=== PATIENT | female | born 1935 | race Caucasian/White ===

== ENCOUNTER → 2017-07-26 | Outpatient (CLI) | payer OTHER ==
[~2017-07-26] MED LIST: ASPI81CH37 CHEW; ATOR20TA15 PO; CALCTAB32 PO; CILO100T PO; CYCL1TAB29 PO; FURO20TA PO; GABA100C4 PO; HYDR-3366 PO; HYDR-3533 PO; METO25TA3 PO; PANT40TA3 PO; SPIR25TA PO; TRAM50TA PO; TYLE325T PO; WOMETAB5
== END ==
LOC: CPRE 12:23
PROVIDERS: ATTEND Neurological Surgery
DX: Z01.818 Encounter for other preprocedural examination (principal); M43.16 Spondylolisthesis, lumbar region; M48.06 Spinal stenosis, lumbar region; M51.36 Other intervertebral disc degeneration, lumbar region; M54.5 Low back pain

== ENCOUNTER 2017-08-01 08:30 | Inpatient (IN) | payer OTHER, MEDICARE ==
[~2017-08-01] VITALS: Ht 157.5 cm; Wt 54.6 kg
[~2017-08-01 08:30] MED LIST changes: -CYCL1TAB29 PO; -TRAM50TA PO
--- NOTE | 2017-08-09 15:43 | MH ---
cc: ANDREI SANCHEZ M.D., ROHIT K. M.D. DATE OF ADMISSION: 08/10/2017 ADMITTING DIAGNOSIS: Lumbar degenerative disk disease. HISTORY OF PRESENT ILLNESS This is a 82-year-old female who presented to us for evaluation of low back pain. She states one and a half years ago she fell and fractured her pelvis in two places. She has had low back pain and left leg pain since then. She states that after her fall she laid on the ground. She 1-1/2 days before her grandson found her. She had low back pain. A left leg pain specifically in the left superior buttocks and the left anterior carmichael and occasionally will radiate into the dorsal aspect of the foot. She states the left leg is very sensitive to touch and has burning quality to it. She states her back pain does not improve lying down and is not positional and hurts all the time. She denies any paresthesias or lower extremities. She has left leg weakness and has fallen three to four times this year. She has been using a cane for the last 6 months. She has urinary incontinence but states that she uses Depends and that she cannot get to the bathroom in time, denies any ervin incontinence. She sleeps wearing a depends pads because she is not able to get to the bathroom in time. She states her back pain is equal to her leg pain. She has physical therapy which did not help and all. She has been to pain management have three injections which also did not help her. She has seen orthopedics in the past who recommended surgery since she has failed conservative treatment measures and the patients close friend who is here with her today recommended that she see neurosurgery for further evaluation. PAST MEDICAL HISTORY: 1. Past medical history significant for broken pelvis. 2. Hysterectomy 3. Breast surgery 4. Hypertension 5. Hyperlipidemia 6. Gastroesophageal reflux disease 7. Urinary tract infections. CURRENT MEDICATIONS 1. Furosemide 20 mg daily 2. Cilostazol 100 mg b.i.d., 3. spironolactone 25 mg daily, 4. atorvastatin 20 mg daily, 5. Gabapentin 100 mg p.o. q hs. 6. Pantoprazole 40 mg daily 7. metoprolol tartrate 25 mg b.i.d. 8. low-dose aspirin 81 mg daily, 9. multivitamin daily, 10. calcium citrate with vitamin D daily, 11. [id number] Ardds two daily. ALLERGIES TO MEDICATIONS She is she is allergic to PENICILLIN SULFA FAMILY HISTORY Father is of a stroke. Mother is of heart disease. She has a sister who is alive 74 in good health. SOCIAL HISTORY She is . She is retired. She has four children. She lives with her grandson. She does not smoke. She quit 1969. She drinks two drinks of alcohol per day. REVIEW OF SYSTEMS CONSTITUTIONAL: She denies any fever. Positive for chills and EARS, NOSE, AND THROAT: ears, nose and throat no pharyngitis, exudates or bloody drainage from her nose. CARDIOVASCULAR SYSTEM: Under cardiovascular she denies any chest pain or palpitations. RESPIRATORY: No cough or shortness of breath. GENITOURINARY: No dysuria or frequency. MUSCULOSKELETAL: Positive for low back pain. SKIN: No rashes or pruritus. NEUROLOGIC: No difficulty with speech. Positive for difficulty with memory. GASTROINTESTINAL: No abdominal pain, diarrhea. Positive for constipation. PSYCHIATRIC: No anxiety or depression symptoms. ENDOCRINE: No polyuria. HEMATOLOGIC: Positive for bruising but no bleeding tendencies. PHYSICAL EXAMINATION HEAD, EYES, EARS, NOSE, AND THROAT: Normocephalic, atraumatic. NECK: Supple. No carotid bruits heard. LUNGS: On auscultation of lungs clear to auscultation bilaterally. HEART: Regular rate and rhythm, normal S1, S2. ABDOMEN: Soft, nontender. Positive bowel sounds. SKIN: Reveals no cyanosis or erythema. MUSCULOSKELETAL: She has left iliopsoas, 3/5 strength, right and 4- /5, bilateral EHL 4/5, otherwise 5/5 strength in the lower extremities. NEUROLOGIC: She is awake, alert, oriented. Cranial nerves II-XII appear grossly intact. Speech is fluent. Comprehension is good. She walks with a kyphotic posture as obvious scoliotic deformity. She has a cane for support. DATA Reviewed MRI of the lumbar spine from February 26, 2017 reveals moderate to severe L4, L6 and L5 spinal stenosis along with a grade 1 / II spondylolisthesis of facet arthropathy and disk protrusion with associated foraminal stenosis. She also has severe L2-L3 disk degeneration with disk height collapse and mild to moderate spinal stenosis at L2-L3, L3-L4. There is an obvious sclerotic she has a scoliotic deformity noted. IMPRESSION 82-year-old female with a chronic history of intractable low back pain with associated left L4-L5 radiculopathy. She has failed conservative treatment measures including physical therapy and interventional pain management. She states her legs giving out on her frequently and just recently she suffered a large bruise on the forearm after she fell. She has significant L4-L5 spinal stenosis along with a grade 1 spondylolisthesis with severe degenerative disk disease and facet arthropathy. She also has severe L2-L3 degenerative disk disease with disk height collapse and lumbar scoliosis. PLAN We have discussed treatment options with the patient which include continued conservative measures including physical therapy and pain management versus surgical intervention and the pros and cons of each were discussed with the patient. The patient's friend relate that she cannot live with a current level of discomfort and her limitations and she is tearful in the examining room and she is requesting we proceed with surgical intervention. She has seen orthopedic surgeon in the past who recommended an L4-L5 laminectomy with fusion and pedicle screw fixation and she presented to us for second opinion. We agree with the surgical intervention involving an L4-L5 transforaminal decompression with interbody fusion pedicle screw fixation through a minimally open minimally invasive procedure. She understands given the degenerative changes of other levels as well as the scoliosis that she would not be pain free with the goal is to lessen her pain increase her activity to prevent further deconditioning. We have discussed the procedure as well as the risk benefit, alternative recovery time in great deal with the patient. We have discussed the risks involved with surgery include but not limited to bleeding, infection, muscle weakness voice hoarseness, difficulty swallowing, heart attack, stroke blood clots, non fusion, scar tissue formation among others. The patient was sent to cardiology for further evaluation of her preop EKG and they placed her at moderate risk for cardiac complications and no further clinical management was required. The patient understands the risks of surgery involved and she is requesting that we proceed and she was therefore scheduled accordingly. We will also seek medical clearance from [place] and she was therefore scheduled accordingly. Josiah Fernandes MD DICTATED BY: KENNY Bustos/win /3:04 PM /3:24 PM
[2017-08-10] MEDS ORDERED: VANCOMYCIN HCL 1000 MG VIAL ONE ×3 (06:41→11:40)
[2017-08-10] MEDS ORDERED: GELFOAM SIZE 100 ONE (06:42)
[2017-08-10] MEDS ORDERED: THROMBIN (TOPICAL) 5,000 UNIT VIAL ONE (06:42)
[2017-08-10] MEDS ORDERED: BUPIVACAINE/EPINEPHRINE 0.5% 50 ML VIAL ONE (06:42)
[2017-08-10] MEDS ORDERED: VANCOMYCIN HCL 1000 MG ON-CALL/NS 250 ML IV SCH ×2 (06:45)
[2017-08-10] MEDS ORDERED: METOPROLOL TARTRATE 25 MG TAB PO PRN (06:45)
[2017-08-10] MEDS ORDERED: POVIDONE IODINE 5% (ANTISEPSIS KIT) 4 APPLICATIONS EACH NARE PRN (06:45)
[2017-08-10] MEDS ORDERED: SODIUM CHLORID 0.9% 500 ML IV PRN (06:45)
[2017-08-10] MEDS ORDERED: INSULIN HUMAN REGULAR 1,000 UNITS/10 ML VIAL SQ PRN (06:45)
[2017-08-10] MEDS ORDERED: LACTATED RINGER'S 1000 ML IV PRN (06:45)
[2017-08-10] MEDS ORDERED: SODIUM CHLOR 0.9% 1000 ML INJ 1,000 ML IV SCH (06:45)
[2017-08-10] MEDS ORDERED: CHLORHEXIDINE GLUCONATE 2 % 1 PACK (2 CLOTHS) TOPICAL PRN (06:45)
[2017-08-10] MEDS ORDERED: MIDAZOLAM HCL 2 MG/2 ML VIAL ONE (08:35)
[2017-08-10] MEDS ORDERED: NEOSTIGMINE 3 MG/3 ML SYR IV ONE (12:00)
[2017-08-10] MEDS ORDERED: NORMOSOL R INJ 2,000 ML IV ONE (12:00)
[2017-08-10] MEDS ORDERED: PROPOFOL 200 MG/20 ML AMP IV ONE (12:00)
[2017-08-10] MEDS ORDERED: ONDANSETRON HCL 4 MG/2 ML VIAL IV PUSH ONE (12:00)
[2017-08-10] MEDS ORDERED: LACTATED RINGER'S 1000 ML INJ 1,000 ML IV ONE (12:00)
[2017-08-10] MEDS ORDERED: PHENYLEPHRINE HCL 10 MG/ML VIAL IV ONE (12:00)
[2017-08-10] MEDS ORDERED: PHENYLEPH/NS 1000 MCG/10 ML SYR IV ONE (12:00)
[2017-08-10] MEDS ORDERED: ePHEDrine/NS 25 MG/5 ML SYR IV ONE (12:00)
[2017-08-10] MEDS ORDERED: DO NOT ADM ANY ANTICOAGULANT DRUGS PRN (12:18)
[2017-08-10] MEDS ORDERED: PROMETHAZINE INJ 25 MG/ML VIAL IM PRN (12:30)
[2017-08-10] MEDS ORDERED: ACETAMINOPHEN/HYDROcodone 325 MG/10 MG TAB PO PRN ×2 (12:30)
[2017-08-10] MEDS ORDERED: NALOXONE HCL 0.4 MG/ML AMP IV PUSH PRN (12:30)
[2017-08-10] MEDS ORDERED: MEPERIDINE HCL 25 MG/ML VIAL ONE (12:34)
--- NOTE | 2017-08-10 12:37 | PD.OP ---
Anibal Gannon MD Operative Report Date of Surgery: Aug 10, 2017 Preoperative Diagnosis: Intractable low back pain with radiculopathy; severe L4-5 spinal stenosis with degenerative disc disease and grade 2 spondylolisthesis Postoperative Diagnosis: Same Procedure: Lumbar L4-5 transforaminal interbody fusion; L4-5 decompressive laminotomy; L4- 5 pedicle screw fixation; L4-5 interbody cage placement; microsurgical technique Anesthesia: Gen. endotracheal by Taran Short Surgeon: Josiah Fernandes M.D. Compliance Quality Performance Analyst(s): Grisel Dorsey Operation and Findings: Following initiation of general endotracheal anesthesia, the patient had a Monterroso catheter placed along with sequential compression devices. A gram of vancomycin was administered intravenously and he was turned in a prone position on a Pepe frame, on a Jagdeep table, and all pressure points adequately padded. The lumbosacral region was then prepped with Chloraprep and sterilely draped with Ioban along the usual sterile draping. A left paraspinal skin incision was then made extending from the L4-L5 level after infiltrating the skin with 0.5% Marcaine with epinephrine solution extending down through the fascia. The muscle fibers were split using avascular fatty plane and detached from the underlying facets, transverse process and lateral portion of lamina on the right side and a self-retaining retractor used for exposure. Intraoperative fluoroscopy was also used for level of confirmation along with microscope magnification for further dissection. There was significant facet and ligamentum flavum hypertrophy as well as spondylolisthesis noted at the L4-5 levels. Left L4-5 facet was resected with a drill bit along with the lamina and there was severe foraminal and lateral recess stenosis from hypertrophied ligamentum flavum and facet which were decompressed bilaterally through the lateral approach. There was significant disc height collapse along with disc protrusion also leading to the foraminal stenosis. Epidural hemostasis was achieved with bipolar cautery and Gelfoam with thrombin. Subsequently entered into the disc space at the L4-5 level with a #15 blade and nancy were used for discectomy. I then placed PEEK cage packed with local autograft bone and more local autograft bone was packed adjacent to the cage in interspace for added interbody fusion. With placement of the cage, I was able to distract the interspace and opened up the foramen further bilaterally. Subsequently in order to facilitate the fusion and provide stabilization, pedicle screw fixation was undertaken using Dixon spine screws on entry point at the right L4-5 levels at the junction of the transverse process and facet. Subsequently using AP and lateral fluoroscopy tap and screw placement. The screws were then connected with a rosario and locked in place with caps. The construct appeared very secure at this point. The area was then copiously irrigated with Vancomycin solution and powder. The retractors were removed and the bipolar cautery used for hemostasis. The muscle fascia was then approximated using 2-0 Vicryl interrupted stitches and then 3-0 Vicryl subcuticular stitches also placed in interrupted fashion. The final skin closure was completed with Mastisol and Steri-Strips. A sterile dressing was then applied. The patient then turned in supine position, extubated and taken to recovery room. There were no intraoperative complications. All sponge and needle counts were correct at the end of procedure. Estimated blood loss about 150 ml. Josiah Fernandes MD Aug 10, 2017 12:37
[2017-08-10] MEDS: SODIUM CHLOR 0.9% 1000 ML INJ 1,000 ML IV SCH (13:00)
[2017-08-10] MEDS ORDERED: *morphine SULFATE 8 MG/ML PERIprocedure ONLY ONE (13:10)
[2017-08-10 13:29] LABS: AUTOMATED NEUTROPHIL # 3.3 TH/MM3 (1.8-7.7); BASOPHIL % 0.6 % (0.0-2.0); EOSINOPHIL # 0.1 TH/MM3 (0-0.4); EOSINOPHIL % 2.1 % (0.0-4.0); HEMATOCRIT 34.2 % (35.0-46.0); HEMO FLAGS DIFF FINAL; LYMPH % 40.2 % (9.0-44.0); LYMPHOCYTE # 2.8 TH/MM3 (1.0-4.8); MEAN CELL VOLUME 93.1 FL (80.0-100.0); MEAN CORPUSCULAR HEMOGLOBIN 32.4 PG (27.0-34.0); MEAN CORPUSCULAR HGB CONC 34.8 % (32.0-36.0); MONO % 9.2 % (0.0-8.0); NEUT % 47.9 % (16.0-70.0); PLATELET COUNT 267 TH/MM3 (150-450); RED BLOOD COUNT 3.68 MIL/MM3 (4.00-5.30); RED CELL DISTRIBUTION WIDTH 13.2 % (11.6-17.2); WHITE BLOOD COUNT 6.9 TH/MM3 (4.0-11.0)
[2017-08-10 13:43] LABS: BICARBONATE 24.7 MEQ/L (21.0-32.0); POTASSIUM 3.7 MEQ/L (3.5-5.1)
--- NOTE | 2017-08-10 13:43 | EKG ---
Date Performed: 08/10/2017 Time Performed: 07:13:55 PTAGE: 82 years EKG: Sinus rhythm NORMAL ECG Compared to prior electrocardiogram, rate has decreased PREVIOUS TRACING : 08/16/2015 19.57 DOCTOR: Brock Hernandez Interpretating Date/Time 08/10/2017 13:42:11
[2017-08-10] MEDS ORDERED: POTASSIUM CHLOR 20 MEQ PREMIX 100 ML IV PRN (14:00)
[2017-08-10] MEDS ORDERED: MORPHINE SULFATE 30 MG/30 ML PCA IV SCH (14:00)
[2017-08-10] MEDS ORDERED: ONDANSETRON HCL 4 MG/2 ML VIAL IV PRN (14:00)
[2017-08-10] MEDS ORDERED: ALUMINUM/MAGNESIUM/SIMETH 30 ML CUP PO PRN (14:00)
[2017-08-10] MEDS ORDERED: diphenhydrAMINE HCL 50 MG/ML VIAL IV PUSH PRN (14:00)
[2017-08-10] MEDS ORDERED: CYCLOBENZAPRINE HCL 10 MG TAB PO PRN (14:00)
[2017-08-10] MEDS ORDERED: cloNIDine HCL 0.1 MG TAB PO PRN (14:00)
[2017-08-10] MEDS ORDERED: SODIUM CHLORIDE 0.9% FLUSH 10 ML FLUSH IV FLUSH PRN (14:00)
[2017-08-10] MEDS ORDERED: MAGNESIUM HYDROXIDE SUSP 30 ML CUP PO PRN (14:00)
[2017-08-10] MEDS ORDERED: CALCIUM GLUCONATE INJ 1 GM in SODIUM CHLORIDE 0.9% INJ 100 ML IV PRN (14:00)
[2017-08-10] MEDS ORDERED: MENTHOL LOZENGE BUCCAL PRN (14:00)
[2017-08-10] MEDS ORDERED: MAGNESIUM SULFATE INJ 2 GM in SODIUM CHLORIDE 0.9% INJ 100 ML IV PRN (14:00)
[2017-08-10] MEDS ORDERED: RESP: ALBUTEROL 2.5 MG/3 ML NEB (PRN) NEB (14:00)
--- NOTE | 2017-08-10 14:54 | RADRPT ---
EXAM DATE/TIME: 08/10/2017 08:52 [facility] COMPARISON: No previous studies available for comparison. INDICATIONS : L4-5 Fusion. MEDICAL HISTORY : Hypertension. Congestive heart failure. SURGICAL HISTORY : Appendectomy. Hysterectomy. ENCOUNTER: Initial ACUITY: 1 day PAIN SCORE: Non-responsive. LOCATION: Lumbar spine. FINDINGS: Unilateral fusion L4-5 from the left in anatomic alignment. CONCLUSION: And alignment. Jcarlos Turner MD FACR on August 10, 2017 at 14:52 Board Certified Radiologist. This report was verified electronically.
[2017-08-10 16:28] VITALS: BP 122/59; PULSE 78; RESP 16; TEMP 98.1; O2SAT 98
--- NOTE | 2017-08-10 16:35 | PD.CONS ---
[facility] Requested By Dr. Fernandes Reason for Consult Medical management Primary Care Physician Anibal Gannon MD Diagnoses: History of Present Illness The patient is an 82-year-old female with a past medical history of hypertension and CVA who is presenting to the hospital with severe low back pain with radiation to her hip. The patient says she has been struggling with severe back and hip pain for the past 18 months. She initially went to her primary care doctor and she says she has not gotten any help from him. She also says her primary care doctor says she had heart problems, but she was referred to a lease examiner who said that her heart was fine. The patient says that she has been taking pain medications and has been following up with an orthopedic surgeon. She has been ambulating with a cane, but despite that she has been falling down. She says the last time she fell down and was about 2 months ago. She currently lives with her grandson. The patient said that she was referred to Dr. Fernandes about a month ago. She says lately she has not had much of an appetite. She denies any fevers. She does endorse constipation secondary to the pain medications. The patient was seen following surgery and appeared comfortable. She said she had some shakiness that she normally doesn' t have. She does endorse anxiety at this time. 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 Uncoded Allergies: SEAFOOD (Adverse Reaction, Severe, RED ALL OVER, 08/10/17) Past Medical History Spinal stenosis CVA Broken pelvis Hypertension Hyperlipidemia Gastroesophageal reflux disease Urinary tract infections Past Surgical History Hysterectomy Breast surgery Coccyx removal Active Ordered Medications Current Medications Medications (Trade) Dose Ordered Sig/Carter Route Start Time Stop Time Status Last Admin Lactated Ringer's 1,000 ml @ 30 mls/hr Q24H PRN IV 08/10/17 06:45 08/13/17 06:44 08/10/17 07:22 (Lopressor) 25 mg BIOLOGICAL SCIENCE TECHNICIAN FISH PRN PO 08/10/17 06:45 08/13/17 06:44 (Betadine 5% Antisepsis Kit) 1 applic BIOLOGICAL SCIENCE TECHNICIAN FISH PRN EACH NARE 08/10/17 06:45 08/13/17 06:44 (NovoLIN R INJ) See Protocol Table ... BIOLOGICAL SCIENCE TECHNICIAN FISH PRN SQ 08/10/17 06:45 08/13/17 06:44 (Aspirin Chew) 81 mg DAILY CHEW 08/11/17 09:00 (Lipitor) 20 mg HS PO 08/10/17 21:00 (Lasix) 20 mg DAILY PO 08/11/17 09:00 (Neurontin) 100 mg HS PO 08/10/17 21:00 (Lopressor) 25 mg BID PO 08/10/17 21:00 (Protonix) 40 mg DAILY PO 08/11/17 09:00 (Aldactone) 25 mg DAILY PO 08/11/17 09:00 (Oscal-D 250-125) 250 mg BID PO 08/10/17 21:00 (NS Flush) 2 ml UNSCH PRN IV FLUSH 08/10/17 14:00 (NS Flush) 2 ml BID IV FLUSH 08/10/17 21:00 Vancomycin HCl 1000 mg/Sodium Chloride 250 ml @ 250 mls/hr Q12H IV 08/11/17 00:00 08/11/17 12:59 (Colace) 100 mg BID PO 08/10/17 21:00 (Milk Of Magnesia Liq) 30 ml DAILY PRN PO 08/10/17 14:00 (Mag-Al Plus Susp Liq) 30 ml Q6H PRN PO 08/10/17 14:00 (Zofran Inj) 4 mg Q6H PRN IV 08/10/17 14:00 (Phenergan Inj) 25 mg Q4H PRN IM 08/10/17 12:30 Calcium Gluconate 1 gm/Sodium Chloride 110 ml @ 110 mls/hr UNSCH PRN IV 08/10/17 14:00 Potassium Chloride 100 ml @ 50 mls/hr UNSCH PRN IV 08/10/17 14:00 Magnesium Sulfate 2 gm/Sodium Chloride 104 ml @ 100 mls/hr UNSCH PRN IV 08/10/17 14:00 (Mayflower 10-325 Mg) 1 tab Q4H PRN PO 08/10/17 12:30 (Mayflower 10-325 Mg) 2 tab Q4H PRN PO 08/10/17 12:30 (Flexeril) 10 mg Q8H PRN PO 08/10/17 14:00 (Catapres) 0.1 mg Q6H PRN PO 08/10/17 14:00 (Tylenol) 650 mg Q4H PRN PO 08/10/17 12:30 (Hallie Jack) 1 lozenge UNSCH PRN BUCCAL 08/10/17 14:00 (Ambien) 5 mg HS PRN PO 08/10/17 21:00 (Albuterol Neb) 2.5 mg Q4HR NEB PRN NEB 08/10/17 14:00 Sodium Chloride 1,000 ml @ 80 mls/hr [id number] IV 08/10/17 14:00 08/10/17 13:00 (Narcan Inj) 0.4 mg UNSCH PRN IV PUSH 08/10/17 12:30 (Benadryl Inj) 25 mg Q6H PRN IV PUSH 08/10/17 14:00 (Morphine 1 Mg/ ml JINRIKSHA DRIVER) 30 mg UNSCH IV 08/10/17 14:00 08/10/17 14:08 JINRIKSHA DRIVER Dosage Infused (Pha) 1 Q8HR .XX 08/10/17 14:00 (Lactulose Liq) 30 ml DAILY PO 08/11/17 09:00 Miscellaneous Information ALL NURSING DEPARTME... UNSCH PRN .XX 08/10/17 12:18 08/11/17 12:17 Family History The patient says her mother lived to be 100. Social History The patient quit smoking 20 years ago. She has social alcohol use. She lives with her grandson. Physical Exam Vital Signs Vital Signs Date Time Temp Pulse Resp B/P (MAP) Pulse Ox O2 Delivery O2 Flow Rate FiO2 08/10/17 16:28 98.1 78 16 122/59 (80) 98 08/10/17 15:00 97.7 73 15 134/60 (84) 98 Nasal Cannula 2 08/10/17 14:08 15 08/10/17 14:00 75 15 122/58 (79) 97 Nasal Cannula 2 08/10/17 13:45 80 15 123/60 (81) 97 Nasal Cannula 2 08/10/17 13:30 76 15 125/60 (81) 97 Nasal Cannula 2 08/10/17 13:15 82 14 137/61 (86) 97 Nasal Cannula 2 08/10/17 13:00 81 15 156/66 (96) 97 Nasal Cannula 2 08/10/17 12:45 80 15 152/57 (88) 99 Nasal Cannula 3 08/10/17 12:30 83 16 171/72 (105) 97 Nasal Cannula 3 08/10/17 12:23 97.6 87 16 151/67 (95) 99 Nasal Cannula 4 08/10/17 06:45 95.7 67 20 120/64 (82) 95 Physical Exam GENERAL: This is a frail, elderly patient in [facility]. SKIN: No rashes, ecchymoses or lesions. Cool and dry. HEAD: Atraumatic. Normocephalic. No temporal or scalp tenderness. EYES: Pupils equal round and reactive. Extraocular motions intact. No scleral icterus. No injection or drainage. ENT: Nose without bleeding, purulent drainage or septal hematoma. Throat without erythema, tonsillar hypertrophy or exudate. Uvula midline. Airway patent. NECK: Trachea midline. No JVD or lymphadenopathy. Supple, nontender, no meningeal signs. CARDIOVASCULAR: Regular rate and rhythm without murmurs, gallops, or rubs. RESPIRATORY: Clear to auscultation. Breath sounds equal bilaterally. No wheezes , rales, or rhonchi. GASTROINTESTINAL: Abdomen soft, non-tender, nondistended. No hepato-splenomegaly , or palpable masses. No guarding. MUSCULOSKELETAL: Extremities without clubbing, cyanosis, or edema. NEUROLOGICAL: Awake and alert. Mild tremor noted in the upper extremities. Cranial nerves II through XII intact. Normal speech. Lower extremities with significant weakness. PSYCH: Mood and affect appropriate. Laboratory Laboratory Tests Test 08/10/17 12:45 White Blood Count 6.9 Red Blood Count 3.68 Hemoglobin 11.9 Hematocrit 34.2 Mean Corpuscular Volume 93.1 Mean Corpuscular Hemoglobin 32.4 Mean Corpuscular Hemoglobin Concent 34.8 Red Cell Distribution Width 13.2 Platelet Count 267 Mean Platelet Volume 7.4 Neutrophils (%) (Auto) 47.9 Lymphocytes (%) (Auto) 40.2 Monocytes (%) (Auto) 9.2 Eosinophils (%) (Auto) 2.1 Basophils (%) (Auto) 0.6 Neutrophils # (Auto) 3.3 Lymphocytes # (Auto) 2.8 Monocytes # (Auto) 0.6 Eosinophils # (Auto) 0.1 Basophils # (Auto) 0.0 CBC Comment DIFF FINAL Differential Comment Blood Urea Nitrogen 12 Creatinine 0.77 Random Glucose 97 Calcium Level 8.6 Sodium Level 142 Potassium Level 3.7 Chloride Level 110 Carbon Dioxide Level 24.7 Anion Gap 7 Estimat Glomerular Filtration Rate 72 Result Diagram: 08/10/17 1245 08/10/17 1245 Assessment and Plan Assessment and Plan L4-L5 radiculopathy S/t spinal stenosis. S/p Lumbar L4-5 transforaminal interbody fusion; L4-5 decompressive laminotomy; L4-5 pedicle screw fixation; L4-5 interbody cage placement 08/10. She does endorse falling recently and does have lower extremity weakness on exam. - management per neurosurgery. - PT evaluation. - pain control with a bowel regimen. - Incentive spirometry. - Case management consult requested. [facility]HC vs SNF. HTN Blood pressure well controlled at this time. - continue home meds. Constipation S/t narcotics. - bowel regimen. PPx: Per NS Discussed Condition With pt, Layo Gutiérrez DO Aug 10, 2017 16:35
[2017-08-10] MEDS: SENNOSIDES 8.6 MG TAB PO SCH (18:21)
[2017-08-10 20:00] VITALS: BP 143/80; PULSE 93; RESP 18; TEMP 98.2; O2SAT 95
[2017-08-10] MEDS ORDERED: ZOLPIDEM TARTRATE 5 MG TAB PO PRN (21:00)
[2017-08-10] MEDS: PCA - TOTAL MG MORPHINE DELIVERED PER SHIFT SCH (22:00)
[2017-08-10] MEDS: GABAPENTIN 100 MG CAP PO SCH (22:13)
[2017-08-10] MEDS: SODIUM CHLORIDE 0.9% FLUSH 10 ML FLUSH IV FLUSH SCH (22:13)
[2017-08-10] MEDS: ATORVASTATIN 20 MG TAB PO SCH (22:13)
[2017-08-10] MEDS: METOPROLOL TARTRATE 25 MG TAB PO SCH (22:13)
[2017-08-10] MEDS: CALCIUM/VITAMIN D 250 MG/125 U TAB PO SCH (22:13)
[2017-08-10] MEDS: DOCUSATE SODIUM 100 MG CAP PO SCH (22:13)
[2017-08-11] VITALS: BP 141/63; PULSE 95; RESP 18; TEMP 98.6; O2SAT 95
[2017-08-11] MEDS: ACETAMINOPHEN 325 MG TAB PO PRN (00:59)
[2017-08-11] MEDS: VANCOMYCIN INJ 1,000 MG in SODIUM CHLOR 0.9% 250 ML INJ 250 ML IV SCH ×2 (01:00→12:26)
[2017-08-11] MEDS: SODIUM CHLOR 0.9% 1000 ML INJ 1,000 ML IV SCH ×3 (03:03→23:09)
[2017-08-11 04:00] VITALS: BP 114/51; PULSE 86; RESP 18; TEMP 98.5; O2SAT 95
[2017-08-11] MEDS: PCA - TOTAL MG MORPHINE DELIVERED PER SHIFT SCH (06:00)
[2017-08-11 08:07] VITALS: BP 129/58; PULSE 76; RESP 20; TEMP 97.5; O2SAT 98
[2017-08-11] MEDS: METOPROLOL TARTRATE 25 MG TAB PO SCH ×2 (09:00→23:08)
[2017-08-11] MEDS: LACTULOSE SYRUP 20 GM/30 ML CUP PO SCH (09:00)
[2017-08-11] MEDS: SODIUM CHLORIDE 0.9% FLUSH 10 ML FLUSH IV FLUSH SCH ×2 (09:00→23:08)
[2017-08-11] MEDS: FUROSEMIDE 20 MG TAB PO SCH (09:25)
[2017-08-11] MEDS: DOCUSATE SODIUM 100 MG CAP PO SCH ×2 (09:26→23:08)
[2017-08-11] MEDS: CALCIUM/VITAMIN D 250 MG/125 U TAB PO SCH ×2 (09:26→23:08)
[2017-08-11] MEDS: PANTOPRAZOLE SOD 40 MG DELAYED RELEASE TAB PO SCH (09:26)
[2017-08-11] MEDS: ASPIRIN 81 MG CHEW TAB CHEW SCH (09:27)
[2017-08-11] MEDS: SPIRONOLACTONE 25 MG TAB PO SCH (09:27)
[2017-08-11] MEDS: SENNOSIDES 8.6 MG TAB PO SCH (09:28)
--- NOTE | 2017-08-11 10:34 | HHI.NSPN ---
(Jefe Strauss) History Chief Complaint: Incisional pain. (Jefe Strauss) Interval History 08/11/17: Pt s/p Lumbar L4-5 transforaminal interbody fusion; L4-5 decompressive laminotomy; L4-5 pedicle screw fixation; L4-5 interbody cage placement; microsurgical technique by Dr. Fernandes on 08/10/17. She complains of incisional pain radiating into the anterior left leg to the carmichael with associated paresthesias. She states she is too painful to get oob today. (Jefe Strauss) Review of Systems General: Negative for: fever, chills, insomnia Respiratory: Negative for: shortness of breath, cough, sputum Cardiovascular: Negative for: chest pain Gastrointestinal: Negative for: nausea, vomitting, diarrhea, constipation ( Jefe Strauss) Exam Results Vital Signs Date Time Temp Pulse Resp B/P (MAP) Pulse Ox O2 Delivery O2 Flow Rate FiO2 08/11/17 08:07 97.5 76 20 129/58 (81) 98 08/10/17 20:01 Nasal Cannula 2.00 Intake and Output 08/11/17 08/11/17 08/12/17 08:00 16:00 00:00 Output Total 500 ml Balance -500 ml (Jefe Strauss) Physical Examination Resp: CTA bilaterally. O2 via NC Heart: NSR no murmurs Abd: Soft positive bs Skin: No cyanosis or erythema Muscle: Moves LEs with generalized weakness and secondary to pain. Neuro: Pt awake and alert. Follows commands. Speech clear. (Jefe Strauss) Lab, Micro, Other Results Last Impressions Lumbar Spine X-Ray 08/10/17 0000 Signed Impressions: Service Date/Time: Thursday, August 10, 2017 08:52 - CONCLUSION: And alignment. Jcarlos Turner MD FACR Laboratory Tests Test 08/10/17 12:45 White Blood Count 6.9 TH/MM3 Red Blood Count 3.68 MIL/MM3 Hemoglobin 11.9 GM/DL Hematocrit 34.2 % Mean Corpuscular Volume 93.1 FL Mean Corpuscular Hemoglobin 32.4 PG Mean Corpuscular Hemoglobin Concent 34.8 % Red Cell Distribution Width 13.2 % Platelet Count 267 TH/MM3 Mean Platelet Volume 7.4 FL Neutrophils (%) (Auto) 47.9 % Lymphocytes (%) (Auto) 40.2 % Monocytes (%) (Auto) 9.2 % Eosinophils (%) (Auto) 2.1 % Basophils (%) (Auto) 0.6 % Neutrophils # (Auto) 3.3 TH/MM3 Lymphocytes # (Auto) 2.8 TH/MM3 Monocytes # (Auto) 0.6 TH/MM3 Eosinophils # (Auto) 0.1 TH/MM3 Basophils # (Auto) 0.0 TH/MM3 CBC Comment DIFF FINAL Differential Comment Blood Urea Nitrogen 12 MG/DL Creatinine 0.77 MG/DL Random Glucose 97 MG/DL Calcium Level 8.6 MG/DL Sodium Level 142 MEQ/L Potassium Level 3.7 MEQ/L Chloride Level 110 MEQ/L Carbon Dioxide Level 24.7 MEQ/L Anion Gap 7 MEQ/L Estimat Glomerular Filtration Rate 72 ML/MIN (Jefe Strauss) Medical Decision Making Impression and Plan A: 82 y/o FM s/p Lumbar L4-5 transforaminal interbody fusion; L4-5 decompressive laminotomy; L4-5 pedicle screw fixation; L4-5 interbody cage placement; microsurgical technique on 08/10/17. Pt off FILTER TIP INSPECTOR and Monterroso out. P: Continue with pain control Rehab efforts. (Jefe Strauss) Attending Statement The exam, history, and the medical decision-making described in the above note were completed with the assistance of the mid-level provider. I reviewed and agree with the findings presented. I attest that I had a [id number] encounter with the patient on the same day, and personally performed and documented my assessment and findings in the medical record. (Josiah Fernandes MD) Jefe Strauss Aug 11, 2017 10:34 Josiah Fernandes MD Aug 11, 2017 14:06
[2017-08-11 11:51] VITALS: BP 129/58; PULSE 76; RESP 18; TEMP 97.5; O2SAT 98
[2017-08-11 13:08] LABS: BACTERIA, URINE RARE /hpf; BLOOD, URINE NEG (NEG); GLUCOSE,URINE NEG (NEG); KETONE, URINE TRACE mg/dL (NEG); NITRITE,URINE NEG (NEG); SQUAMOUS EPITHELIAL CELL URINE 3 /hpf (0-5)
[2017-08-11 13:09] LABS: COMMENT (UR) CATH-CULTURE IND; CULTURE IF INDICATED CATH CULTURE IND; URINE COLOR STRAW (YELLW/STRAW)
--- NOTE | 2017-08-11 15:33 | HHI.PR ---
Subjective Remarks Patient reports back pain, otherwise feeling okay. Pain medication is helping. Objective Vitals Vital Signs Date Time Temp Pulse Resp B/P (MAP) Pulse Ox O2 Delivery O2 Flow Rate FiO2 08/11/17 11:51 97.5 76 18 129/58 (81) 98 08/11/17 08:07 97.5 76 20 129/58 (81) 98 08/11/17 04:00 98.5 86 18 114/51 (72) 95 08/11/17 00:00 98.6 95 18 141/63 (89) 95 08/10/17 20:01 Nasal Cannula 2.00 08/10/17 20:00 98.2 93 18 143/80 (101) 95 08/10/17 16:28 98.1 78 16 122/59 (80) 98 08/10/17 15:41 Nasal Cannula 2.00 I/O 08/10/17 08/10/17 08/10/17 08/11/17 08/11/17 08/11/17 07:00 15:00 23:00 07:00 15:00 23:00 Intake Total 3750 ml 549 ml Output Total 1000 ml 225 ml 500 ml 75 ml Balance 2750 ml 324 ml -500 ml -75 ml Intake IV Total 1000 ml 549 ml Other 2750 ml Output Urine Total 850 ml 225 ml 500 ml 75 ml Other 150 ml Result Diagram: 08/10/17 1245 08/10/17 1245 Objective Remarks GENERAL: Elderly female in no apparent distress. CARDIOVASCULAR: Normal rate and regular rhythm without murmurs, gallops, or rubs. RESPIRATORY: Good respiratory efforts. Breath sounds equal and clear to auscultation bilaterally. GASTROINTESTINAL: Abdomen soft, non-tender, non-distended. Normal active bowel sounds MUSCULOSKELETAL: Extremities without cyanosis, or edema. NEURO: Alert & Oriented x4 to person, place, time, situation. Moves all ext x4 PSYCH: Appropriate mood and affect. A/P Assessment and Plan L4-L5 radiculopathy S/t spinal stenosis. S/p Lumbar L4-5 transforaminal interbody fusion; L4-5 decompressive laminotomy; L4-5 pedicle screw fixation; L4-5 interbody cage placement 08/10. She does endorse falling recently and does have lower extremity weakness on exam. - management per neurosurgery. - PT evaluation. - pain control with a bowel regimen. - Incentive spirometry. - Case management following. HHC vs SNF. HTN Blood pressure well controlled at this time. - continue home meds. Constipation S/t narcotics. - bowel regimen. PPx: Per Dhiraj Mason MD Aug 11, 2017 15:33
[2017-08-11 16:28] VITALS: BP 158/74; PULSE 70; RESP 20; TEMP 98.5; O2SAT 98
[2017-08-11 20:00] VITALS: BP 149/99; PULSE 99; RESP 18; TEMP 98.5; O2SAT 95
[2017-08-11] MEDS: ATORVASTATIN 20 MG TAB PO SCH (23:07)
[2017-08-11] MEDS: GABAPENTIN 100 MG CAP PO SCH (23:07)
[2017-08-11] MEDS: CIPROFLOXACIN 500 MG TAB PO SCH (23:08)
[2017-08-12] VITALS: BP 146/77; PULSE 86; RESP 18; TEMP 97.3; O2SAT 92
[2017-08-12 06:58] VITALS: BP 190/78; PULSE 83; RESP 18; TEMP 97.6
[2017-08-12] MEDS: CIPROFLOXACIN 500 MG TAB PO SCH ×2 (07:17→21:22)
[2017-08-12] MEDS: SODIUM CHLORIDE 0.9% FLUSH 10 ML FLUSH IV FLUSH SCH ×2 (07:17→21:22)
[2017-08-12] MEDS: ASPIRIN 81 MG CHEW TAB CHEW SCH (07:18)
[2017-08-12] MEDS: LACTULOSE SYRUP 20 GM/30 ML CUP PO SCH (07:18)
[2017-08-12] MEDS: SENNOSIDES 8.6 MG TAB PO SCH (07:18)
[2017-08-12] MEDS: PANTOPRAZOLE SOD 40 MG DELAYED RELEASE TAB PO SCH (07:18)
[2017-08-12] MEDS: FUROSEMIDE 20 MG TAB PO SCH (07:18)
[2017-08-12] MEDS: SPIRONOLACTONE 25 MG TAB PO SCH (07:18)
[2017-08-12] MEDS: CALCIUM/VITAMIN D 250 MG/125 U TAB PO SCH ×2 (07:18→21:22)
[2017-08-12] MEDS: METOPROLOL TARTRATE 25 MG TAB PO SCH ×2 (07:18→21:22)
[2017-08-12] MEDS: DOCUSATE SODIUM 100 MG CAP PO SCH ×2 (07:18→21:22)
[2017-08-12] MEDS: SODIUM CHLOR 0.9% 1000 ML INJ 1,000 ML IV SCH (07:19)
[2017-08-12] MEDS: ACETAMINOPHEN 325 MG TAB PO PRN ×2 (07:22→16:29)
--- NOTE | 2017-08-12 08:11 | HHI.NSPN ---
History Chief Complaint: Incisional pain. Interval History 08/11/17: Pt s/p Lumbar L4-5 transforaminal interbody fusion; L4-5 decompressive laminotomy; L4-5 pedicle screw fixation; L4-5 interbody cage placement; microsurgical technique by Dr. Fernandes on 08/10/17. She complains of incisional pain radiating into the anterior left leg to the carmichael with associated paresthesias. She states she is too painful to get oob today. 08/12/17: Pt awake and alert. Reportedly was very confused last night, better this morning. Denies any pain radiating into her left leg today. Pain controlled off STEEL LOADER. Review of Systems General: Negative for: fever, chills, insomnia Respiratory: Negative for: shortness of breath, cough, sputum Cardiovascular: Negative for: chest pain Gastrointestinal: Negative for: nausea, vomitting, diarrhea, constipation Exam Results Vital Signs Date Time Temp Pulse Resp B/P (MAP) Pulse Ox O2 Delivery O2 Flow Rate FiO2 08/12/17 06:58 97.6 83 18 190/78 (115) 08/12/17 00:00 92 08/11/17 21:27 Room Air 08/11/17 09:30 2.00 Intake and Output 08/12/17 08/12/17 08/13/17 08:00 16:00 00:00 Intake Total 208 ml Balance 208 ml Physical Examination Resp: CTA bilaterally. Heart: NSR no murmurs Abd: Soft positive bs Skin: No cyanosis or erythema Muscle: Moves LEs with generalized weakness and secondary to pain. Neuro: Pt awake and alert. Follows commands. Speech clear. Lab, Micro, Other Results Laboratory Tests Test 08/11/17 12:30 Urine Color STRAW Urine Turbidity CLEAR Urine pH 5.0 Urine Specific [place] 1.003 Urine Protein NEG mg/dL Urine Glucose (UA) NEG mg/dL Urine Ketones TRACE mg/dL Urine Occult Blood NEG Urine Nitrite NEG Urine Bilirubin NEG Urine Urobilinogen LESS THAN 2.0 MG/DL Urine Leukocyte Esterase NEG Urine WBC LESS THAN 1 /hpf Urine Squamous Epithelial Cells 3 /hpf Urine Bacteria RARE /hpf Microscopic Urinalysis Comment CATH-CULTURE IND Medical Decision Making Impression and Plan A: 82 y/o FM s/p Lumbar L4-5 transforaminal interbody fusion; L4-5 decompressive laminotomy; L4-5 pedicle screw fixation; L4-5 interbody cage placement; microsurgical technique on 08/10/17. Pt off STEEL LOADER and Monterroso out. P: Continue with pain control Rehab efforts. Pt will likely need SNF placement. Jefe Strauss Aug 12, 2017 8:11 am
[2017-08-12 11:21] LABS: AUTOMATED NEUTROPHIL # 7.6 TH/MM3 (1.8-7.7); BASOPHIL % 0.2 % (0.0-2.0); EOSINOPHIL % 0.2 % (0.0-4.0); HEMATOCRIT 36.9 % (35.0-46.0); HEMO FLAGS DIFF FINAL; LYMPH % 13.9 % (9.0-44.0); LYMPHOCYTE # 1.5 TH/MM3 (1.0-4.8); MEAN CELL VOLUME 93.7 FL (80.0-100.0); MEAN CORPUSCULAR HEMOGLOBIN 30.9 PG (27.0-34.0); MONO % 13.4 % (0.0-8.0); NEUT % 72.3 % (16.0-70.0); PLATELET COUNT 256 TH/MM3 (150-450); RED BLOOD COUNT 3.94 MIL/MM3 (4.00-5.30); RED CELL DISTRIBUTION WIDTH 13.1 % (11.6-17.2); WHITE BLOOD COUNT 10.5 TH/MM3 (4.0-11.0)
[2017-08-12 11:51] LABS: BICARBONATE 26.7 MEQ/L (21.0-32.0); POTASSIUM 3.5 MEQ/L (3.5-5.1)
[2017-08-12 12:00] VITALS: BP 123/57; PULSE 72; RESP 18; TEMP 97.1; O2SAT 95
--- NOTE | 2017-08-12 13:58 | HHI.PR ---
Subjective Remarks Patient reports feeling better today. Pain is better controlled. Had some issues with confusion overnight but is back to baseline this morning. Objective Vitals Vital Signs Date Time Temp Pulse Resp B/P (MAP) Pulse Ox O2 Delivery O2 Flow Rate FiO2 08/12/17 06:58 97.6 83 18 190/78 (115) 08/12/17 00:00 97.3 86 18 146/77 (100) 92 08/11/17 21:27 Room Air 08/11/17 20:00 98.5 99 18 149/99 (116) 95 08/11/17 16:28 98.5 70 20 158/74 (102) 98 I/O 08/11/17 08/11/17 08/11/17 08/12/17 08/12/17 08/12/17 07:00 15:00 23:00 07:00 15:00 23:00 Intake Total 250 ml 720 ml 208 ml Output Total 500 ml 75 ml 175 ml Balance -500 ml 175 ml 720 ml 33 ml Intake Oral 720 ml IV Total 250 ml 208 ml Output Urine Total 500 ml 75 ml 175 ml # Voids 6 # Bowel Movements 1 Result Diagram: 08/12/17 1045 08/12/17 1045 Objective Remarks GENERAL: Elderly female in no apparent distress. CARDIOVASCULAR: Normal rate and regular rhythm without murmurs, gallops, or rubs. RESPIRATORY: Good respiratory efforts. Breath sounds equal and clear to auscultation bilaterally. GASTROINTESTINAL: Abdomen soft, non-tender, non-distended. Normal active bowel sounds MUSCULOSKELETAL: Extremities without cyanosis, or edema. NEURO: Alert & Oriented x4 to person, place, time, situation. Moves all ext x4 PSYCH: Appropriate mood and affect. A/P Assessment and Plan 82-year-old female with: L4-L5 radiculopathy S/t spinal stenosis. S/p Lumbar L4-5 transforaminal interbody fusion; L4-5 decompressive laminotomy; L4-5 pedicle screw fixation; L4-5 interbody cage placement 08/10. She does endorse falling recently and does have lower extremity weakness on exam. - management per neurosurgery. - PT evaluation. - pain control with a bowel regimen. - Incentive spirometry. - Case management following. Plan to discharge to SNF. HTN Blood pressure labile today. - continue home meds. - Vasotec as needed. Continue to monitor UTI: Patient is on Cipro. Follow cultures Constipation S/t narcotics. - bowel regimen. PPx: Per Dhiraj Mason MD Aug 12, 2017 13:58
[2017-08-12] MEDS ORDERED: ENALAPRILAT 1.25 MG/ML VIAL IV PRN (14:00)
[2017-08-12 16:33] VITALS: BP 148/64; PULSE 79; RESP 20; TEMP 98; O2SAT 95
[2017-08-12 21:20] VITALS: BP 171/72; PULSE 77; RESP 16; TEMP 99; O2SAT 95
[2017-08-12] MEDS: GABAPENTIN 100 MG CAP PO SCH (21:22)
[2017-08-12] MEDS: ATORVASTATIN 20 MG TAB PO SCH (21:22)
[2017-08-13] VITALS: BP 132/77; PULSE 78; RESP 18; TEMP 98.8; O2SAT 94
[2017-08-13 04:00] VITALS: BP 172/73; PULSE 74; RESP 17; TEMP 98.6; O2SAT 94
[2017-08-13 08:00] VITALS: BP 164/70; PULSE 70; RESP 16; TEMP 97.8; O2SAT 93
[2017-08-13] MEDS: LACTULOSE SYRUP 20 GM/30 ML CUP PO SCH (09:00)
[2017-08-13] MEDS: SODIUM CHLORIDE 0.9% FLUSH 10 ML FLUSH IV FLUSH SCH (09:00)
--- NOTE | 2017-08-13 09:19 | HHI.NSPN ---
(Jefe Strauss) History Chief Complaint: Incisional pain. (Jefe Strauss) Interval History 08/11/17: Pt s/p Lumbar L4-5 transforaminal interbody fusion; L4-5 decompressive laminotomy; L4-5 pedicle screw fixation; L4-5 interbody cage placement; microsurgical technique by Dr. Fernandes on 08/10/17. She complains of incisional pain radiating into the anterior left leg to the carmichael with associated paresthesias. She states she is too painful to get oob today. 08/12/17: Pt awake and alert. Reportedly was very confused last night, better this morning. Denies any pain radiating into her left leg today. Pain controlled off SIGNAL MANAGER. 08/13/17: Pt awake and alert. States she has periods of confusion and knows she is confused. States she has pain radiating into the left anterior leg. Complains of low back pain. (Jefe Strauss) Review of Systems General: Negative for: fever, chills, insomnia Respiratory: Negative for: shortness of breath, cough, sputum Cardiovascular: Negative for: chest pain Gastrointestinal: Negative for: nausea, vomitting, diarrhea, constipation ( Jefe Strauss) Exam Results Vital Signs Date Time Temp Pulse Resp B/P (MAP) Pulse Ox O2 Delivery O2 Flow Rate FiO2 08/13/17 04:00 98.6 74 17 172/73 (106) 94 08/11/17 21:27 Room Air 08/11/17 09:30 2.00 (Jefe Strauss) Physical Examination Resp: CTA bilaterally. Heart: NSR no murmurs Abd: Soft positive bs Skin: No cyanosis or erythema Muscle: Moves LEs with generalized weakness and secondary to pain. Neuro: Pt awake and alert. Follows commands. Speech clear. (Jfee Strauss) Lab, Micro, Other Results Last Impressions Lumbar Spine X-Ray 08/10/17 0000 Signed Impressions: Service Date/Time: Thursday, August 10, 2017 08:52 - CONCLUSION: And alignment. Jcarlos Turner MD FACR Laboratory Tests Test 08/12/17 10:45 White Blood Count 10.5 TH/MM3 Red Blood Count 3.94 MIL/MM3 Hemoglobin 12.2 GM/DL Hematocrit 36.9 % Mean Corpuscular Volume 93.7 FL Mean Corpuscular Hemoglobin 30.9 PG Mean Corpuscular Hemoglobin Concent 33.0 % Red Cell Distribution Width 13.1 % Platelet Count 256 TH/MM3 Mean Platelet Volume 7.3 FL Neutrophils (%) (Auto) 72.3 % Lymphocytes (%) (Auto) 13.9 % Monocytes (%) (Auto) 13.4 % Eosinophils (%) (Auto) 0.2 % Basophils (%) (Auto) 0.2 % Neutrophils # (Auto) 7.6 TH/MM3 Lymphocytes # (Auto) 1.5 TH/MM3 Monocytes # (Auto) 1.4 TH/MM3 Eosinophils # (Auto) 0.0 TH/MM3 Basophils # (Auto) 0.0 TH/MM3 CBC Comment DIFF FINAL Differential Comment Blood Urea Nitrogen 9 MG/DL Creatinine 0.80 MG/DL Random Glucose 112 MG/DL Calcium Level 9.8 MG/DL Sodium Level 137 MEQ/L Potassium Level 3.5 MEQ/L Chloride Level 103 MEQ/L Carbon Dioxide Level 26.7 MEQ/L Anion Gap 7 MEQ/L Estimat Glomerular Filtration Rate 69 ML/MIN (Jefe Strauss) Medical Decision Making Impression and Plan A: 82 y/o FM s/p Lumbar L4-5 transforaminal interbody fusion; L4-5 decompressive laminotomy; L4-5 pedicle screw fixation; L4-5 interbody cage placement; microsurgical technique on 08/10/17. Pt off SIGNAL MANAGER and Monterroso out. P: Continue with pain control Rehab efforts. Pt will likely need SNF placement. (Jefe Strauss) Attending Statement The exam, history, and the medical decision-making described in the above note were completed with the assistance of the mid-level provider. I reviewed and agree with the findings presented. I attest that I had a [id number] encounter with the patient on the same day, and personally performed and documented my assessment and findings in the medical record. (Josiah Fernandes MD) Jefe Strauss Aug 13, 2017 09:19 Josiah Fernandes MD Aug 13, 2017 13:34
[2017-08-13] MEDS ORDERED: HYDR-3366 PO (09:46)
[2017-08-13] MEDS ORDERED: CYCL1TAB29 PO (09:46)
[2017-08-13] MEDS ORDERED: TRAM50TA PO (09:55)
[2017-08-13] MEDS ORDERED: HYDR-3533 PO (09:56)
[2017-08-13] MEDS ORDERED: ACETAMINOPHEN/HYDROcodone 325 MG/5 MG TAB PO PRN (10:00)
[2017-08-13] MEDS: SENNOSIDES 8.6 MG TAB PO SCH (10:07)
[2017-08-13] MEDS: CALCIUM/VITAMIN D 250 MG/125 U TAB PO SCH (10:08)
[2017-08-13] MEDS: CIPROFLOXACIN 500 MG TAB PO SCH ×2 (10:08→10:10)
[2017-08-13] MEDS: PANTOPRAZOLE SOD 40 MG DELAYED RELEASE TAB PO SCH (10:08)
[2017-08-13] MEDS: METOPROLOL TARTRATE 25 MG TAB PO SCH (10:08)
[2017-08-13] MEDS: ASPIRIN 81 MG CHEW TAB CHEW SCH ×2 (10:09→10:10)
[2017-08-13] MEDS: FUROSEMIDE 20 MG TAB PO SCH (10:09)
[2017-08-13] MEDS: SPIRONOLACTONE 25 MG TAB PO SCH (10:10)
[2017-08-13] MEDS: DOCUSATE SODIUM 100 MG CAP PO SCH (10:14)
[2017-08-13] MEDS: traMADol HCL 50 MG TAB PO PRN ×2 (10:27→17:04)
[2017-08-13 12:00] VITALS: BP 117/58; PULSE 70; RESP 16; TEMP 97.5; O2SAT 94
--- NOTE | 2017-08-13 12:08 | HHI.PR ---
Subjective Remarks Patient reports the pain medication makes her confused. She is aware when she is confused. Objective Vitals Vital Signs Date Time Temp Pulse Resp B/P (MAP) Pulse Ox O2 Delivery O2 Flow Rate FiO2 08/13/17 08:00 97.8 70 16 164/70 (101) 93 08/13/17 04:00 98.6 74 17 172/73 (106) 94 08/13/17 00:00 98.8 78 18 132/77 (95) 94 08/12/17 21:20 99.0 77 16 171/72 (105) 95 08/12/17 16:33 98.0 79 20 148/64 (92) 95 08/12/17 12:00 97.1 72 18 123/57 (79) 95 I/O 08/12/17 08/12/17 08/12/17 08/13/17 08/13/17 08/13/17 07:00 15:00 23:00 07:00 15:00 23:00 Intake Total 208 ml 660 ml Output Total 175 ml Balance 33 ml 660 ml Intake Oral 660 ml IV Total 208 ml Output Urine Total 175 ml # Voids 4 1 Result Diagram: 08/12/17 1045 08/12/17 1045 Objective Remarks GENERAL: Elderly female in no apparent distress. CARDIOVASCULAR: Normal rate and regular rhythm without murmurs, gallops, or rubs. RESPIRATORY: Good respiratory efforts. Breath sounds equal and clear to auscultation bilaterally. GASTROINTESTINAL: Abdomen soft, non-tender, non-distended. Normal active bowel sounds MUSCULOSKELETAL: Extremities without cyanosis, or edema. NEURO: Alert & Oriented x4 to person, place, time, situation. Moves all ext x4 PSYCH: Appropriate mood and affect. A/P Assessment and Plan 82-year-old female with: L4-L5 radiculopathy S/t spinal stenosis. S/p Lumbar L4-5 transforaminal interbody fusion; L4-5 decompressive laminotomy; L4-5 pedicle screw fixation; L4-5 interbody cage placement 08/10. She does endorse falling recently and does have lower extremity weakness on exam. - management per neurosurgery. - PT evaluation. - pain control with a bowel regimen. Discussed side effects of pain medication with the patient. Dose lowered earlier per neurosurgery. - Incentive spirometry. - Case management following. Plan to discharge to SNF. HTN Blood pressure labile today. - continue home meds. - Vasotec as needed. Continue to monitor UTI: Patient is on Cipro. Follow cultures. So far growing Pseudomonas and group D enterococcus. However, colony count is low Constipation S/t narcotics. - bowel regimen. PPx: Per Dhiraj Mason MD Aug 13, 2017 11:27
[2017-08-13 16:00] VITALS: BP 145/65; PULSE 70; RESP 16; TEMP 97.4; O2SAT 94
--- NOTE | 2017-09-09 09:52 | HHI.DS ---
Discharge Summary Admission Date Aug 10, 2017 at 06:16 Discharge Date: Aug 13, 2017 Admitting Diagnosis (1) Spinal stenosis at L4-L5 level Diagnosis: Principal ICD Code: M48.06 - Spinal stenosis at L4-L5 level Status: Acute (2) Lumbar facet arthropathy Diagnosis: Principal ICD Code: M46.96 - Arthropathy of lumbar facet joint Status: Acute (3) Lumbar degenerative disc disease Diagnosis: Principal ICD Code: M51.36 - Other intervertebral disc degeneration, lumbar region Status: Acute (4) Low back pain Diagnosis: Principal ICD Code: M54.5 - Low back pain Status: Acute (5) Facet arthropathy, lumbar Diagnosis: Principal ICD Code: M12.88 - Other specific arthropathies, not elsewhere classified, other specified site Status: Acute (6) Lumbar stenosis with neurogenic claudication Diagnosis: Principal ICD Code: M48.06 - Spinal stenosis, lumbar region Status: Acute (7) Scoliosis of lumbar spine Diagnosis: Principal ICD Code: M41.9 - Scoliosis, unspecified Status: Acute (8) Lumbar foraminal stenosis Diagnosis: Principal ICD Code: M99.83 - Other biomechanical lesions of lumbar region Status: Acute (9) Spondylolisthesis of lumbar region Diagnosis: Principal ICD Code: M43.16 - Spondylolisthesis, lumbar region Status: Acute Procedures Lumbar L4/L5 transforaminal interbody fusion; L4/L5 decompressive laminectomy; L4 to L5 pedicle screw fixation; L4/L5 interbody cage placement by Dr. Fernandes on 08/10/17. Brief History This is an 82-year-old female presents for office for an evaluation of low back pain. She states one half years ago she fell and fractured her pelvis in 2 places. She had low back pain and left groin pain since then. She states that after her fall she laid on the ground and her grandson found her one and a half days after her fall. She had low back pain. Left leg pain specifically in the left superior buttocks and left anterior carmichael and occasionally will radiate into the dorsal aspect of the foot. She states the left leg is very sensitive to touch and has burning quality to it. She states her back pain does not improve with laying down and is not positional and hurts all the time. She denies any paresthesias in her lower extremities. She has left leg weakness and has following 3-4 times this year. She's been using a cane for the last 6 months. She has urinary incontinence but states she uses depends and that she cannot get to the bathroom in time and denies any ervin incontinence. She sleeps wearing depends the pads she is unable to the bathroom in time. She states that her back pain is equal to her leg pain. She's had physical therapy which did not help her at all. She has been to pain management had 3 epidural injections which did not help her. She has been seen by orthopedics in the past who recommended surgery since she failed conservative treatment measures the patient has a close friend who is present with her recommended that she see neurosurgery for evaluation. Imaging MRI of the lumbar spine from February 26, 2017 reveals moderate to severe L4/L5 spinal stenosis along with grade 1/2 spinal listhesis of facet arthropathy and disc protrusion with associated foraminal stenosis. She also has severe L2/L3 disc degeneration with disc height collapse and mild to moderate spinal stenosis at L2 social 3 and L3/L4. She has a scoliotic spine deformity. Hospital Course Patient underwent the above-noted procedure performed by Dr. Fernandes. There was no intraoperative complications. Postoperatively patient was admitted to the medical surgical floor. Patient's pain initially was controlled with a ACCOUNTING INTERN. This was discontinued. Her Monterroso catheter was discontinued. Her activity status was increased with physical therapy. Hospice was consulted for assistance with medical management. Patient was stable and was discharged to a [facility] facility. Pt Condition on Discharge: Stable Discharge Disposition: Discharge to SNF Discharge Instructions DIET: Follow Instructions for: As Tolerated, No Restrictions ACTIVITIES You can perform: Shower Only-No Bath Activities to Avoid: Lifting/Bending, Prolonged Standing, Strenuous Activity, Bathing, Driving ADDITIONAL Activity Instructio: lumbar brace on when out of bed New Medications: Tramadol (Tramadol) 50 Mg Tab 50 MG PO Q6H PRN for PAIN, #60 TAB 0 Refills Cyclobenzaprine (Flexeril) 10 Mg Tab 10 MG PO Q8H PRN for MUSCLE SPASM, #30 TAB Continued Medications: Aspirin (Aspirin Low Dose) 81 Mg Chew 81 MG CHEW DAILY, TAB 0 Refills Atorvastatin (Atorvastatin) 20 Mg Tab 20 MG PO HS for Cholesterol Management, #90 TAB 3 Refills Calcium Citrate-Vitamin D (Calcium Citrate + D) 315-200 Mg-Unit Tab 1 TAB PO BID, TAB Cilostazol (Cilostazol) 100 Mg Tab 100 MG PO BID for INTERMITTENT CLAUDICATION, #180 TAB 3 Refills Furosemide (Furosemide) 20 Mg Tab 20 MG PO DAILY, #90 TAB 3 Refills Gabapentin (Gabapentin) 100 Mg Cap 100 MG PO HS, #90 CAP 0 Refills Hydrocodone-Acetaminophen (Lortab) 5-325 Mg Tab 1 TAB PO Q6H PRN for PAIN, #60 TAB 0 Refills (This prescription has been renewed ) Metoprolol Tartrate (Metoprolol Tartrate) 25 Mg Tab 25 MG PO BID, #60 TAB 0 Refills Multiple Vitamins W/ Minerals (Womens One Daily) 1 Tab Tab Pantoprazole (Pantoprazole) 40 Mg Tab 40 MG PO DAILY for Reflux, #90 TAB 0 Refills Spironolactone (Spironolactone) 25 Mg Tab 25 MG PO DAILY, #90 TAB 3 Refills Discontinued Medications: Acetaminophen (Tylenol) 325 Mg Tab 325 MG PO ONCE, #1 TAB 0 Refills Jefe Strauss Sep 09, 2017 09:52
== END 2017-08-13 20:00 | DRG 460 ==
LOC: HSDI 08-10 06:16 → N05A 08-10 15:41
PROVIDERS: ADMIT Neurological Surgery; ATTEND Neurological Surgery
PROC: 0ST20ZZ Resection of Lumbar Vertebral Disc, Open Approach (ICD-10-PCS; 2017-08-10)
PROC: 0SG00AJ Fusion of Lumbar Vertebral Joint with Interbody Fusion Device, Posterior Approach, Anterior Column, Open Approach (ICD-10-PCS; principal; 2017-08-10 08:39)
DX: M51.16 Intervertebral disc disorders with radiculopathy, lumbar region (principal); M41.9 Scoliosis, unspecified; N39.0 Urinary tract infection, site not specified; I10 Essential (primary) hypertension; M43.16 Spondylolisthesis, lumbar region; M51.36 Other intervertebral disc degeneration, lumbar region; M48.06 Spinal stenosis, lumbar region; K59.03 Drug induced constipation; F41.9 Anxiety disorder, unspecified; R32 Unspecified urinary incontinence; E78.5 Hyperlipidemia, unspecified; K21.9 Gastro-esophageal reflux disease without esophagitis; M54.5 Low back pain; Z91.81 History of falling; Z87.440 Personal history of urinary (tract) infections; Z87.891 Personal history of nicotine dependence; Z86.73 Personal history of transient ischemic attack (TIA), and cerebral infarction without residual deficits; T40.605A Adverse effect of unspecified narcotics, initial encounter
CPT/HCPCS: 36415; 72100; 76000; 76937; 80048; 80053; 81001; 82948; 85025; 85610; 85730; 86850; 86900; 86901; 87077; 87086; 87186; 93005; C1713; J2175; J2250; J2270; J2370; J2405; J2710; J3010; J3370; J7030; J7050; J7120; L0627

== ENCOUNTER → 2017-08-09 | Outpatient (CLI) | payer OTHER ==
[~2017-08-09] MED LIST changes: +CYCL1TAB29 PO; +TRAM50TA PO
[2017-08-09 09:47] LABS: APTT (PATIENT) 26.6 SEC (24.3-30.1); PROTHROMBIN TIME - PATIENT 10.5 SEC (9.8-11.6)
[2017-08-09 09:50] LABS: AUTOMATED NEUTROPHIL # 5.3 TH/MM3 (1.8-7.7); BASOPHIL # 0.1 TH/MM3 (0-0.2); BASOPHIL % 0.8 % (0.0-2.0); EOSINOPHIL # 0.2 TH/MM3 (0-0.4); EOSINOPHIL % 2.1 % (0.0-4.0); HEMATOCRIT 42.8 % (35.0-46.0); HEMO FLAGS DIFF FINAL; LYMPH % 27.3 % (9.0-44.0); LYMPHOCYTE # 2.4 TH/MM3 (1.0-4.8); MEAN CELL VOLUME 94.2 FL (80.0-100.0); MEAN CORPUSCULAR HEMOGLOBIN 32.2 PG (27.0-34.0); MEAN CORPUSCULAR HGB CONC 34.1 % (32.0-36.0); MONO % 8.9 % (0.0-8.0); NEUT % 60.9 % (16.0-70.0); PLATELET COUNT 310 TH/MM3 (150-450); RED BLOOD COUNT 4.54 MIL/MM3 (4.00-5.30); RED CELL DISTRIBUTION WIDTH 13.6 % (11.6-17.2); WHITE BLOOD COUNT 8.7 TH/MM3 (4.0-11.0)
[2017-08-09 09:56] LABS: BLOOD, URINE NEG (NEG); COMMENT (UR) CULT NOT INDICATED; CULTURE IF INDICATED CULT NOT INDICATED; GLUCOSE,URINE NEG (NEG); HYALINE CAST, URINE 1 /lpf (RARE); KETONE, URINE NEG (NEG); MUCUS URINE FEW /lpf (OCC); NITRITE,URINE NEG (NEG); PH, URINE 5.5 (5.0-8.5); SQUAMOUS EPITHELIAL CELL URINE 1 /hpf (0-5); URINE COLOR YELLOW (YELLW/STRAW)
[2017-08-09 10:06] LABS: ANION GAP 7 MEQ/L (5-15); AST (GOT) 13 U/L (15-37); BICARBONATE 25.3 MEQ/L (21.0-32.0); BLOOD UREA NITROGEN 16 MG/DL (7-18); CHLORIDE 108 MEQ/L (98-107); GLOMERULAR FILTRATION RATE 62 ML/MIN (>89); GLUCOSE,FASTING 87 MG/DL (74-99); POTASSIUM 5.2 MEQ/L (3.5-5.1); SODIUM (NA) 140 MEQ/L (136-145)
[2017-08-09 10:10] LABS: ALKALINE PHOSPHATASE 76 U/L (45-117); ALT (GPT) 18 U/L (10-53); TOTAL BILIRUBIN ADULT 0.7 MG/DL (0.2-1.0)
== END ==
LOC: CPRE 09:04
PROVIDERS: ATTEND Neurological Surgery
DX: Z01.812 Encounter for preprocedural laboratory examination (principal); M43.16 Spondylolisthesis, lumbar region; M48.06 Spinal stenosis, lumbar region; M51.36 Other intervertebral disc degeneration, lumbar region; M54.5 Low back pain
CPT/HCPCS: 36415; 80053; 81001; 85025; 85610; 85730

== ENCOUNTER 2018-01-15 17:11 | Emergency (ER) | payer MEDICARE, OTHER ==
[~2018-01-15 17:11] MED LIST changes: -ASPI81CH37 CHEW; +ASPI81CH6 CHEW; -CALCTAB32 PO; -CYCL1TAB29 PO; -FURO20TA PO; -GABA100C4 PO; -HYDR-3366 PO; -HYDR-3533 PO; -SPIR25TA PO; -TRAM50TA PO; -TYLE325T PO; -WOMETAB5
[2018-01-15 17:31] VITALS: BP 229/98; PULSE 68; RESP 18; TEMP 97.6; O2SAT 96
[2018-01-15] MEDS ORDERED: CIPR-9 PO (17:50)
--- NOTE | 2018-01-15 17:50 | PD ---
HPI Chief Complaint: Complaint Time Seen by Provider: 17:47 Travel History International Travel<30 days: No Contact w/Intl Traveler<30days: No Traveled to known affect area: No History of Present Illness HPI 82-year-old female patient with history of frequent UTIs, presents to the ER today because she has had several days history of back pains, burning on urination, frequent urination, feels like she is becoming incontinent of urine, has to use pads. She denies any vomiting, fevers, or any other symptoms. Patient states that she has been on Cipro and is finishing the last dose today. Modifying Factors: None Associated Signs & Symptoms: Urinary symptoms Risk Factors: Frequent UTIs PFSH Past Medical History Hx Anticoagulant Therapy: Yes (81 mg asa) Arthritis: Yes Asthma: No Autoimmune Disease: No Blood Disorders: No Anxiety: No Depression: No Heart Rhythm Problems: No Cancer: Yes Cardiovascular Problems: Yes High Cholesterol: Yes Chemotherapy: No Chest Pain: Yes Congestive Heart Failure: Yes COPD: No Cerebrovascular Accident: Yes Diabetes: No Diminished Hearing: No Endocrine: No GERD: Yes Glaucoma: No Genitourinary: No Headaches: No Hepatitis: No Hiatal Hernia: No Hypertension: Yes Immune Disorder: No Kidney Stones: Yes Musculoskeletal: Yes Neurologic: Yes Psychiatric: No Reproductive: No Respiratory: No Myocardial Infarction: No Radiation Therapy: No Renal Failure: No Seizures: No Sickle Cell Disease: No Sleep Apnea: No Thyroid Disease: No Ulcer: Yes ?: Not : 1 Para: 1 Past Surgical History Abdominal Surgery: Yes (APPENDECTOMY) AICD: No Appendectomy: Yes Body Medical Devices: stent in l leg Cardiac Surgery: No Ear Surgery: No Endocrine Surgery: No Eye Surgery: Yes (Cataracts with lens implants) Genitourinary Surgery: No Gynecologic Surgery: Yes (hysterectomy) Hysterectomy: Yes Joint Replacement: No Oral Surgery: No Pacemaker: No Thoracic Surgery: No Other Surgery: Yes (STENT LEFT FEMORAL ARTERY PVD PER DR. 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 Uncoded Allergies: SEAFOOD (Adverse Reaction, Severe, RED ALL OVER, 08/10/17) Reported Meds & Prescriptions Reported Meds & Active Scripts Active Cilostazol 100 Mg Tab 100 Mg PO BID Atorvastatin (Atorvastatin Calcium) 20 Mg Tab 20 Mg PO HS Reported Cipro (Ciprofloxacin HCl) 500 Mg Tab 500 Mg PO BID Aspirin Low Dose (Aspirin) 81 Mg Chew 81 Mg CHEW DAILY Metoprolol Tartrate 25 Mg Tab 25 Mg PO BID Pantoprazole (Pantoprazole Sodium) 40 Mg Tab 40 Mg PO DAILY Review of Systems Except as stated in HPI: all other systems reviewed are Neg Physical Exam Narrative GENERAL: Pleasant well-developed elderly female patient currently in mild distress. Awake and oriented 3. SKIN: Focused skin assessment warm/dry. HEAD: Atraumatic. Normocephalic. EYES: Pupils equal and round. No scleral icterus. No injection or drainage. ENT: No nasal bleeding or discharge. Mucous membranes pink and moist. NECK: Trachea midline. No JVD. CARDIOVASCULAR: Regular rate and rhythm. No murmur appreciated. RESPIRATORY: No accessory muscle use. Clear to auscultation. Breath sounds equal bilaterally. GASTROINTESTINAL: Abdomen soft, non-tender, nondistended. Hepatic and splenic margins not palpable. BACK: No CVA tenderness. No rash. No point tenderness on palpation of the spine. MUSCULOSKELETAL: No obvious deformities. No clubbing. No cyanosis. No edema. NEUROLOGICAL: Awake and alert. No obvious cranial nerve deficits. Motor grossly within normal limits. Normal speech. PSYCHIATRIC: Appropriate mood and affect; insight and judgment normal. Data Data Last Documented VS Vital Signs Date Time Temp Pulse Resp B/P (MAP) Pulse Ox O2 Delivery O2 Flow Rate FiO2 01/15/18 18:13 230/93 (138) 01/15/18 18:08 98 Room Air 01/15/18 17:31 97.6 68 18 Orders Orders Urinalysis - C+S If Indicated (01/15/18 17:26) Sepsis Workup Initiated (01/15/18 ) Complete Blood Count With Diff (01/15/18 17:50) Comprehensive Metabolic Panel (01/15/18 17:50) Lactic Acid Sepsis Protocol (01/15/18 17:50) Blood Culture (01/15/18 17:50) Blood Glucose (01/15/18 17:50) Ecg Monitoring (01/15/18 17:50) Iv Access Insert/Monitor (01/15/18 17:50) Oximetry (01/15/18 17:50) Oxygen Administration (01/15/18 17:50) Electrocardiogram (01/15/18 17:50) Clonidine (Catapres) (01/15/18 18:45) Labs Laboratory Tests Test 01/15/18 17:55 01/15/18 18:00 01/15/18 18:45 White Blood Count 7.8 TH/MM3 Red Blood Count 4.96 MIL/MM3 Hemoglobin 14.4 GM/DL Hematocrit 44.8 % Mean Corpuscular Volume 90.5 FL Mean Corpuscular Hemoglobin 29.1 PG Mean Corpuscular Hemoglobin Concent 32.1 % Red Cell Distribution Width 13.5 % Platelet Count 310 TH/MM3 Mean Platelet Volume 7.8 FL Neutrophils (%) (Auto) 57.1 % Lymphocytes (%) (Auto) 31.6 % Monocytes (%) (Auto) 7.1 % Eosinophils (%) (Auto) 2.5 % Basophils (%) (Auto) 1.7 % Neutrophils # (Auto) 4.4 TH/MM3 Lymphocytes # (Auto) 2.5 TH/MM3 Monocytes # (Auto) 0.6 TH/MM3 Eosinophils # (Auto) 0.2 TH/MM3 Basophils # (Auto) 0.1 TH/MM3 CBC Comment DIFF FINAL Differential Comment Blood Urea Nitrogen 12 MG/DL Creatinine 0.89 MG/DL Random Glucose 90 MG/DL Total Protein 7.2 GM/DL Albumin 3.8 GM/DL Calcium Level 9.3 MG/DL Alkaline Phosphatase 81 U/L Aspartate Amino Transf (AST/SGOT) 21 U/L Alanine Aminotransferase (ALT/SGPT) 20 U/L Total Bilirubin 0.4 MG/DL Sodium Level 136 MEQ/L Potassium Level 3.4 MEQ/L Chloride Level 104 MEQ/L Carbon Dioxide Level 25.1 MEQ/L Anion Gap 7 MEQ/L Estimat Glomerular Filtration Rate 61 ML/MIN Lactic Acid Level 0.9 mmol/L [facility] Medical Decision Making Medical Screen Exam Complete: Yes Emergency Medical Condition: Yes Medical Record Reviewed: Yes Interpretation(s) Laboratory Tests Test 01/15/18 17:55 01/15/18 18:00 Potassium Level 3.4 MEQ/L (3.5-5.1) Estimat Glomerular Filtration Rate 61 ML/MIN (>89) Differential Diagnosis Urinary symptoms: UTI versus pyelonephritis versus sepsis Narrative Course Patient was given clonidine in the ER due to fairly elevated blood pressures. She is not having any chest pains, shortness of breath, or other symptoms. Her EKG did not show any signs of acute ST changes. Lab work did not show any signs of elevated BUN and creatinine. UA was sent for further evaluation. Abdomen is benign and I do not suspect an acute intra-abdominal process. Physician Communication Physician Communication Case is signed out at [address] Johnson awaiting UAAnd reevaluation of blood pressure. Disposition based on blood pressure evaluation. Diagnosis Primary Impression: Dysuria Additional Impression: Hypertension Condition: Stable Karri Diaz MD Jan 15, 2018 17:50
[2018-01-15 17:53] VITALS: BP 240/108
[2018-01-15 18:13] VITALS: BP 230/93
[2018-01-15 18:22] LABS: AUTOMATED NEUTROPHIL # 4.4 TH/MM3 (1.8-7.7); BASOPHIL # 0.1 TH/MM3 (0-0.2); BASOPHIL % 1.7 % (0.0-2.0); EOSINOPHIL # 0.2 TH/MM3 (0-0.4); EOSINOPHIL % 2.5 % (0.0-4.0); HEMATOCRIT 44.8 % (35.0-46.0); HEMOGLOBIN 14.4 GM/DL (11.6-15.3); LYMPH % 31.6 % (9.0-44.0); LYMPHOCYTE # 2.5 TH/MM3 (1.0-4.8); MEAN CELL VOLUME 90.5 FL (80.0-100.0); MEAN CORPUSCULAR HEMOGLOBIN 29.1 PG (27.0-34.0); MEAN CORPUSCULAR HGB CONC 32.1 % (32.0-36.0); MEAN PLATELET VOLUME 7.8 FL (7.0-11.0); MONO % 7.1 % (0.0-8.0); MONOCYTE # 0.6 TH/MM3 (0-0.9); NEUT % 57.1 % (16.0-70.0); PLATELET COUNT 310 TH/MM3 (150-450); RED BLOOD COUNT 4.96 MIL/MM3 (4.00-5.30); RED CELL DISTRIBUTION WIDTH 13.5 % (11.6-17.2); WHITE BLOOD COUNT 7.8 TH/MM3 (4.0-11.0)
[2018-01-15 18:36] LABS: CHLORIDE 104 MEQ/L (98-107); SODIUM (NA) 136 MEQ/L (136-145)
[2018-01-15 18:40] LABS: ALBUMIN 3.8 GM/DL (3.4-5.0); BICARBONATE 25.1 MEQ/L (21.0-32.0); BLOOD UREA NITROGEN 12 MG/DL (7-18); CALCIUM 9.3 MG/DL (8.5-10.1); GLUCOSE,RANDOM 90 MG/DL (74-106)
[2018-01-15 18:43] LABS: ALT (GPT) 20 U/L (10-53); AST (GOT) 21 U/L (15-37); CREATININE 0.89 MG/DL (0.50-1.00); GLOMERULAR FILTRATION RATE 61 ML/MIN (>89)
[2018-01-15 18:45] LABS: TOTAL BILIRUBIN ADULT 0.4 MG/DL (0.2-1.0); TOTAL PROTEIN 7.2 GM/DL (6.4-8.2)
[2018-01-15] MEDS ORDERED: cloNIDine HCL 0.2 MG TAB PO ONE (18:45)
[2018-01-15 18:46] LABS: ALKALINE PHOSPHATASE 81 U/L (45-117)
--- NOTE | 2018-01-15 18:57 | PD ---
Physical Exam Date Seen by Provider: Jan 15, 2018 Time Seen by Provider: 18:56 Narrative The patient is a 82-year-old female was initially evaluated by the previous physician. Please refer to the initial history, physical, diagnostic evaluation , treatment modality plan. The patient was signed out at 7 PM with UA pending for urinary type symptoms. Data Data Last Documented VS Vital Signs Date Time Temp Pulse Resp B/P (MAP) Pulse Ox O2 Delivery O2 Flow Rate FiO2 01/15/18 18:13 230/93 (138) 01/15/18 18:08 98 Room Air 01/15/18 17:31 97.6 68 18 Orders Orders Urinalysis - C+S If Indicated (01/15/18 17:26) Sepsis Workup Initiated (01/15/18 ) Complete Blood Count With Diff (01/15/18 17:50) Comprehensive Metabolic Panel (01/15/18 17:50) Lactic Acid Sepsis Protocol (01/15/18 17:50) Blood Culture (01/15/18 17:50) Blood Glucose (01/15/18 17:50) Ecg Monitoring (01/15/18 17:50) Iv Access Insert/Monitor (01/15/18 17:50) Oximetry (01/15/18 17:50) Oxygen Administration (01/15/18 17:50) Electrocardiogram (01/15/18 17:50) Clonidine (Catapres) (01/15/18 18:45) Urine Culture (01/15/18 18:45) Ceftriaxone Inj (Rocephin Inj) (01/15/18 19:15) Labs Laboratory Tests Test 01/15/18 17:55 01/15/18 18:00 01/15/18 18:45 White Blood Count 7.8 TH/MM3 Red Blood Count 4.96 MIL/MM3 Hemoglobin 14.4 GM/DL Hematocrit 44.8 % Mean Corpuscular Volume 90.5 FL Mean Corpuscular Hemoglobin 29.1 PG Mean Corpuscular Hemoglobin Concent 32.1 % Red Cell Distribution Width 13.5 % Platelet Count 310 TH/MM3 Mean Platelet Volume 7.8 FL Neutrophils (%) (Auto) 57.1 % Lymphocytes (%) (Auto) 31.6 % Monocytes (%) (Auto) 7.1 % Eosinophils (%) (Auto) 2.5 % Basophils (%) (Auto) 1.7 % Neutrophils # (Auto) 4.4 TH/MM3 Lymphocytes # (Auto) 2.5 TH/MM3 Monocytes # (Auto) 0.6 TH/MM3 Eosinophils # (Auto) 0.2 TH/MM3 Basophils # (Auto) 0.1 TH/MM3 CBC Comment DIFF FINAL Differential Comment Blood Urea Nitrogen 12 MG/DL Creatinine 0.89 MG/DL Random Glucose 90 MG/DL Total Protein 7.2 GM/DL Albumin 3.8 GM/DL Calcium Level 9.3 MG/DL Alkaline Phosphatase 81 U/L Aspartate Amino Transf (AST/SGOT) 21 U/L Alanine Aminotransferase (ALT/SGPT) 20 U/L Total Bilirubin 0.4 MG/DL Sodium Level 136 MEQ/L Potassium Level 3.4 MEQ/L Chloride Level 104 MEQ/L Carbon Dioxide Level 25.1 MEQ/L Anion Gap 7 MEQ/L Estimat Glomerular Filtration Rate 61 ML/MIN Lactic Acid Level 0.9 mmol/L Urine Color YELLOW Urine Turbidity CLEAR Urine pH 6.5 Urine Specific [place] 1.010 Urine Protein NEG mg/dL Urine Glucose (UA) NEG mg/dL Urine Ketones TRACE mg/dL Urine Occult Blood NEG Urine Nitrite NEG Urine Bilirubin NEG Urine Leukocyte Esterase SMALL Urine WBC 6-8 /hpf Urine WBC Clumps FEW Urine Squamous Epithelial Cells 0-5 /hpf Microscopic Urinalysis Comment CULTURE INDICATED MDM Medical Record Reviewed: Yes Supervised Visit with PEDRO: No Interpretation(s) Laboratory Tests Test 01/15/18 17:55 01/15/18 18:00 01/15/18 18:45 White Blood Count 7.8 TH/MM3 Red Blood Count 4.96 MIL/MM3 Hemoglobin 14.4 GM/DL Hematocrit 44.8 % Mean Corpuscular Volume 90.5 FL Mean Corpuscular Hemoglobin 29.1 PG Mean Corpuscular Hemoglobin Concent 32.1 % Red Cell Distribution Width 13.5 % Platelet Count 310 TH/MM3 Mean Platelet Volume 7.8 FL Neutrophils (%) (Auto) 57.1 % Lymphocytes (%) (Auto) 31.6 % Monocytes (%) (Auto) 7.1 % Eosinophils (%) (Auto) 2.5 % Basophils (%) (Auto) 1.7 % Neutrophils # (Auto) 4.4 TH/MM3 Lymphocytes # (Auto) 2.5 TH/MM3 Monocytes # (Auto) 0.6 TH/MM3 Eosinophils # (Auto) 0.2 TH/MM3 Basophils # (Auto) 0.1 TH/MM3 CBC Comment DIFF FINAL Differential Comment Blood Urea Nitrogen 12 MG/DL Creatinine 0.89 MG/DL Random Glucose 90 MG/DL Total Protein 7.2 GM/DL Albumin 3.8 GM/DL Calcium Level 9.3 MG/DL Alkaline Phosphatase 81 U/L Aspartate Amino Transf (AST/SGOT) 21 U/L Alanine Aminotransferase (ALT/SGPT) 20 U/L Total Bilirubin 0.4 MG/DL Sodium Level 136 MEQ/L Potassium Level 3.4 MEQ/L Chloride Level 104 MEQ/L Carbon Dioxide Level 25.1 MEQ/L Anion Gap 7 MEQ/L Estimat Glomerular Filtration Rate 61 ML/MIN Lactic Acid Level 0.9 mmol/L Urine Color YELLOW Urine Turbidity CLEAR Urine pH 6.5 Urine Specific [place] 1.010 Urine Protein NEG mg/dL Urine Glucose (UA) NEG mg/dL Urine Ketones TRACE mg/dL Urine Occult Blood NEG Urine Nitrite NEG Urine Bilirubin NEG Urine Leukocyte Esterase SMALL Urine WBC 6-8 /hpf Urine WBC Clumps FEW Urine Squamous Epithelial Cells 0-5 /hpf Microscopic Urinalysis Comment CULTURE INDICATED Differential Diagnosis Differential diagnosis includes UTI, nephrolithiasis, pyelonephritis, antibiotic resistant, hypertension, hypertensive urgency, hypertensive emergency. Narrative Course The patient is a 82-year-old female who is initially limited by the previous physician. Please refer to the initial history, physical, diagnostic evaluation, treatment modality plan. The patient was signed out at 7 PM with UA pending. UA reveals WBCs, WBC clumps, and leukocyte esterase. The patient states she has been on antibiotics intermittently since May, saw a urologist up her on a very expensive medication, however, she continues to have symptoms. She has not undergone cystoscopy and is unsure if anyone has performed an actual urine culture. Patient was administered Rocephin 1 g intravenously, will be sent home on Macrobid. UA culture is pending. She is advised if symptoms persist she may need follow-up with a telecom sales consultant for recurrent urinary tract infections and possible cystocele and/or fistula and/or cystoscopy with urology. She will be provided a copy of her labs at discharge. The patient does have hypertension, is only on metoprolol. I will add Norvasc. Diagnosis Primary Impression: Dysuria Additional Impression: Hypertension Qualified Codes: I10 - Essential (primary) hypertension Patient Instructions: General Instructions Additional Instruction: Medications as directed. Follow-up with her primary physician. Please provide a patient a copy of her labs at discharge. He may benefit from follow-up with gynecology and/or urology if symptoms persist. Med/Other Pt SpecificInfo: Prescription(s) given Scripts Amlodipine (Norvasc) 5 Mg Tab 5 MG PO DAILY for Blood Pressure Management, #30 TAB 0 Refills Prov: Ugo Johnson MD 01/15/18 Nitrofurantoin Monohydrate Macrocrystals (Macrobid) 100 Mg Cap 100 MG PO BID for Infection for 10 Days, #20 CAP 0 Refills Prov: Ugo Johnson MD 01/15/18 Disposition: 01 DISCHARGE HOME Condition: Stable Ugo Johnson MD Jan 15, 2018 18:57
[2018-01-15 18:58] LABS: BILIRUBIN, URINE NEG (NEG); BLOOD, URINE NEG (NEG); GLUCOSE,URINE NEG (NEG); KETONE, URINE TRACE mg/dL (NEG); NITRITE,URINE NEG (NEG); PH, URINE 6.5 (5.0-8.5); URINE LEUKOCYTE ESTERASE SMALL (NEG)
[2018-01-15 19:07] LABS: SQUAMOUS EPITHELIAL CELL URINE 0-5 /hpf (0-5); URINE COLOR YELLOW (YELLW/STRAW); WHITE BLOOD CELL CLUMPS FEW
[2018-01-15] MEDS ORDERED: cefTRIAXone INJ 1,000 MG in SODIUM CHLORIDE 0.9% INJ 100 ML IV ONE (19:15)
[2018-01-15] MEDS ORDERED: MACR100C2 PO (19:25)
[2018-01-15] MEDS ORDERED: AMLO5 PO (19:25)
[2018-01-15 20:18] VITALS: BP 175/88; TEMP 98.7
--- NOTE | 2018-01-16 08:12 | EKG ---
Date Performed: 01/15/2018 Time Performed: 18:08:00 PTAGE: 82 years EKG: Sinus rhythm NORMAL ECG PREVIOUS TRACING : 08/10/2017 07.13 DOCTOR: Jose Angel Radford Interpretating Date/Time 01/16/2018 08:10:19
== END 2018-01-15 20:21 | disposition home or self-care (01) ==
LOC: PHED 17:11
DX: R30.0 Dysuria (principal); I10 Essential (primary) hypertension; R35.0 Frequency of micturition; R82.99 Other abnormal findings in urine; E78.00 Pure hypercholesterolemia, unspecified; K21.9 Gastro-esophageal reflux disease without esophagitis; I50.9 Heart failure, unspecified; Z79.82 Long term (current) use of aspirin; Z87.39 Personal history of other diseases of the musculoskeletal system and connective tissue; Z86.73 Personal history of transient ischemic attack (TIA), and cerebral infarction without residual deficits; Z87.442 Personal history of urinary calculi; Z86.69 Personal history of other diseases of the nervous system and sense organs
CPT/HCPCS: 80053; 81001; 83605; 85025; 87040; 87086; 93005; 96365; 99284; J0696

== ENCOUNTER 2018-01-27 15:05 | Observation (INO) | payer MEDICARE, OTHER ==
[~2018-01-27] VITALS: Ht 152.4 cm; Wt 60.0 kg
[2018-01-27 15:05] VITALS: BP 157/111; PULSE 84; RESP 17; TEMP 97.7; O2SAT 98
[~2018-01-27 15:05] MED LIST changes: +AMLO5 PO; -ASPI81CH6 CHEW; +ASPI81CH6 PO; +CIPR-9 PO; +MACR100C2 PO
--- NOTE | 2018-01-27 15:26 | RADRPT ---
EXAM DATE/TIME: 01/27/2018 15:16 [facility] COMPARISON: CT BRAIN W/O CONTRAST, August 16, 2015, 22:01. INDICATIONS : Stroke alert; aphagia and left side weakness. RADIATION DOSE: 35.93 CTDIvol (mGy) This report was called by Dr. Gomez to Dr. Bautista at 3: 21 PM on January 27, 2018. MEDICAL HISTORY : Stroke. Cardiovascular disease Hypertension. SURGICAL HISTORY : None. ENCOUNTER: Initial ACUITY: 1 day PAIN SCALE: 0/10 LOCATION: cranial TECHNIQUE: Multiple contiguous axial images were obtained of the head. Using automated exposure control and adj ustment of the mA and/or kV according to patient size, radiation dose was kept as low as reasonably a chievable to obtain optimal diagnostic quality images. DICOM format image data is available electro nically for review and comparison. FINDINGS: There is no evidence of intracranial hemorrhage. There is mild atrophy. Patchy and confluent areas of decreased attenuation are noted in the bilateral centrum semiovale, subcortical white matter and per iventricular white matter. This is not significantly changed. There are remote lacunar infarcts in th e left thalamus and basal ganglia as well as the right thalamus and basal ganglia, unchanged. Right g reater than left distal vertebral artery calcifications in bilateral internal carotid artery calcific ations are again seen. No mass or signs of acute infarction. CONCLUSION: 1. Stable chronic appearing white matter disease and remote infarcts. 2. Atrophy. Marco Antonio Gomez MD on January 27, 2018 at 15:21 Board Certified Radiologist. This report was verified electronically.
[2018-01-27 15:32] VITALS: BP 141/63; PULSE 79; RESP 17; O2SAT 98
[2018-01-27 15:38] LABS: AUTOMATED NEUTROPHIL # 8.1 TH/MM3 (1.8-7.7); BASOPHIL # 0.3 TH/MM3 (0-0.2); BASOPHIL % 2.3 % (0.0-2.0); EOSINOPHIL # 0.3 TH/MM3 (0-0.4); EOSINOPHIL % 2.3 % (0.0-4.0); HEMATOCRIT 44.3 % (35.0-46.0); HEMOGLOBIN 14.8 GM/DL (11.6-15.3); LYMPH % 22.4 % (9.0-44.0); LYMPHOCYTE # 2.7 TH/MM3 (1.0-4.8); MEAN CELL VOLUME 89.8 FL (80.0-100.0); MEAN CORPUSCULAR HGB CONC 33.4 % (32.0-36.0); MEAN PLATELET VOLUME 7.7 FL (7.0-11.0); MONO % 6.8 % (0.0-8.0); MONOCYTE # 0.8 TH/MM3 (0-0.9); NEUT % 66.2 % (16.0-70.0); PLATELET COUNT 342 TH/MM3 (150-450); RED BLOOD COUNT 4.93 MIL/MM3 (4.00-5.30); RED CELL DISTRIBUTION WIDTH 14.2 % (11.6-17.2); WHITE BLOOD COUNT 12.2 TH/MM3 (4.0-11.0)
[2018-01-27] MEDS ORDERED: IOHEXOL 350 MG/ML 10 ML VIAL (for RAD DIAG) IVCONTRAST ONE (15:41)
--- NOTE | 2018-01-27 15:45 | RADRPT ---
EXAM DATE/TIME: 01/27/2018 15:26 [facility] COMPARISON: CT BRAIN W/O CONTRAST, January 27, 2018, 15:16. INDICATIONS : Stroke alert, left sided weakness, aphasia. IV CONTRAST: 75 cc Omnipaque 350 (iohexol) IV ; Cumulative dose for multiple exams. RADIATION DOSE: 26.47 CTDIvol (mGy) ; Combined studies MEDICAL HISTORY : Non-responsive. SURGICAL HISTORY : Non-responsive. ENCOUNTER: Initial ACUITY: 1 day PAIN SCALE: 0/10 LOCATION: cranial TECHNIQUE: Volumetric scanning was performed using a multi-row detector CT scanner. The data was post processed with a variety of visualization algorithms including full volume maximum intensity projection, multi -planar sliding thin slab reformation, curved planar reformation, and surface rendering techniques. Using automated exposure control and adjustment of the mA and/or kV according to patient size, radiat ion dose was kept as low as reasonably achievable to obtain optimal diagnostic quality images. DICO M format image data is available electronically for review and comparison. FINDINGS: There is excellent visualization of the major intracranial arteries out to the second-order branch ve ssels. The patient has variant anatomy. There is persistent circulation on the right. The basil ar artery is supplied predominantly via the right vertebral artery. The left vertebral artery termina bety in a PICA distribution. There is no evidence for aneurysm, vessel truncation or stenosis, and no evidence for vascular malformation. No filling defects observed to suggest a thrombus or embolus. CONCLUSION: 1. No acute intracranial abnormality. Yazan Luciano Jr., MD on January 27, 2018 at 15:40 Board Certified Radiologist. This report was verified electronically.
--- NOTE | 2018-01-27 15:53 | PD ---
HPI Chief Complaint: Stroke Alert Time Seen by Provider: 15:13 Travel History International Travel<30 days: No Contact w/Intl Traveler<30days: No Traveled to known affect area: No History of Present Illness HPI 82yo F with PMH of CVA, HTN presents to the [facility] as stroke alert. [facility] said she was having lunch with grandson and was having difficulty saying her words so they called a stroke alert. Last normal was about 14:04. Initial NIH stroke scale is 13. Pt has generalized weakness in all extremities and unable to keep any of it up. PFSH Past Medical History Hx Anticoagulant Therapy: Yes (81 mg asa) Arthritis: Yes Asthma: No Autoimmune Disease: No Blood Disorders: No Anxiety: No Depression: No Heart Rhythm Problems: No Cancer: Yes Cardiovascular Problems: Yes High Cholesterol: Yes Chemotherapy: No Chest Pain: Yes Congestive Heart Failure: Yes COPD: No Cerebrovascular Accident: Yes Diabetes: No Diminished Hearing: No Endocrine: No Gastrointestinal Disorders: Yes (gerd) GERD: Yes Glaucoma: No Genitourinary: No Headaches: No Hepatitis: No Hiatal Hernia: No Hypertension: Yes Immune Disorder: No Kidney Stones: Yes Musculoskeletal: Yes Neurologic: Yes Psychiatric: No Reproductive: No Respiratory: No Myocardial Infarction: No Radiation Therapy: No Renal Failure: No Seizures: No Sickle Cell Disease: No Sleep Apnea: No Thyroid Disease: No Ulcer: Yes : 1 Para: 1 Past Surgical History Abdominal Surgery: Yes (APPENDECTOMY) AICD: No Appendectomy: Yes Body Medical Devices: stent in l leg Cardiac Surgery: No Ear Surgery: No Endocrine Surgery: No Eye Surgery: Yes (Cataracts with lens implants) Genitourinary Surgery: No Gynecologic Surgery: Yes (hysterectomy) Hysterectomy: Yes Joint Replacement: No Oral Surgery: No Pacemaker: No Thoracic Surgery: No Other Surgery: Yes (STENT LEFT FEMORAL ARTERY) Social History Alcohol Use: Yes (2 beers/day) Tobacco Use: No Substance Use: No Allergies-Medications (Allergen,Severity, Reaction): Coded Allergies: Fish Containing Products (Unverified Allergy, Severe, SOB, 01/27/18) Sulfa (Sulfonamide Antibiotics) (Unverified Allergy, Severe, Swelling, 01/27) penicillin G (Unverified Allergy, Severe, sob, 01/27/18) oxytetracycline (Unverified Allergy, Mild, SOB, 01/27/18) *MDRO Multi-Drug Resistant Organism (Verified Adverse Reaction, Unknown, ) 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 Uncoded Allergies: SEAFOOD (Adverse Reaction, Severe, RED ALL OVER, 08/10/17) Reported Meds & Prescriptions Reported Meds & Active Scripts Active Norvasc (Amlodipine Besylate) 5 Mg Tab 5 Mg PO DAILY Macrobid (Nitrofurantoin Monoh/Nitrofur Macro) 100 Mg Cap 100 Mg PO BID 10 Days Cilostazol 100 Mg Tab 100 Mg PO BID Atorvastatin (Atorvastatin Calcium) 20 Mg Tab 20 Mg PO HS Reported Cipro (Ciprofloxacin HCl) 500 Mg Tab 500 Mg PO BID Aspirin Low Dose (Aspirin) 81 Mg Chew 81 Mg PO DAILY Metoprolol Tartrate 25 Mg Tab 25 Mg PO BID Pantoprazole (Pantoprazole Sodium) 40 Mg Tab 40 Mg PO DAILY Review of Systems Except as stated in HPI: all other systems reviewed are Neg Physical Exam Narrative GENERAL: 82yo F not in distress. Alcohol on breath. SKIN: Focused skin assessment warm/dry. HEAD: Atraumatic. Normocephalic. EYES: Pupils equal and round at 3mm bilaterally. EOMI. ENT: No nasal bleeding or discharge. Mucous membranes pink and moist. NECK: Trachea midline. No JVD. CARDIOVASCULAR: Regular rate and rhythm. No murmur appreciated. RESPIRATORY: No accessory muscle use. Clear to auscultation. Breath sounds equal bilaterally. GASTROINTESTINAL: Abdomen soft, non-tender, nondistended. Hepatic and splenic margins not palpable. MUSCULOSKELETAL: No obvious deformities. No clubbing. No cyanosis. No edema. NEUROLOGICAL: Awake and alert. Mild dysarthria. NIH stroke scale 12, muscle strength 4/5 in bilateral upper extremity and 3/5 in bilateral lower extremity. Data Data Last Documented VS Vital Signs Date Time Temp Pulse Resp B/P (MAP) Pulse Ox O2 Delivery O2 Flow Rate FiO2 01/27/18 15:32 79 17 141/63 (89) 98 Nasal Cannula 2.00 01/27/18 15:[address] Brain W/O Iv Contrast(Rout) (01/27/18 ) Cta Brain W Iv Contrast W 3d (01/27/18 15:13) Cta Neck W Iv Contrast W 3d (01/27/18 15:13) Electrocardiogram (01/27/18 ) I-Stat Profile (01/27/18 15:14) Prothrombin Time / Inr (Pt) (01/27/18 15:14) Act Partial Throm Time (Ptt) (01/27/18 15:14) Complete Blood Count With Diff (01/27/18 15:14) Type And Screen (01/27/18 15:14) Iohexol 350 Inj (Omnipaque 350 Inj) (01/27/18 15:41) Mri Brain W/O Contrast (01/27/18 ) Echo 2d Comp With Doppler (01/27/18 ) Aspirin Ec (Ecotrin Ec) (01/27/18 16:15) Lipid Profile (01/27/18 16:10) Portable Eeg (01/27/18 ) Alcohol (Ethanol) (01/27/18 15:13) Admit Order (Ed Use Only) (01/27/18 17:22) Place In Observation (01/27/18 ) Vital Signs (Adult) Q4H (01/27/18 17:21) Activity Oob With Assistance (01/27/18 17:21) Scooter Mechanic / Telemetry .CONTINUOUS (01/27/18 17:21) Intake + Output VAN.QSHIFT (01/27/18 17:21) Diet Npo (01/27/18 Dinner) Sodium Chlor 0.9% 1000 Ml Inj (Ns 1000 M (01/27/18 17:21) Sodium Chloride 0.9% Flush (Ns Flush) (01/27/18 17:30) Sodium Chloride 0.9% Flush (Ns Flush) (01/27/18 21:00) Acetaminophen (Tylenol) (01/27/18 17:30) Ondansetron Inj (Zofran Inj) (01/27/18 17:30) Scd Bilateral/Knee High VAN.BID (01/27/18 17:21) Naloxone Inj (Narcan Inj) (01/27/18 17:30) Magnesium Hydroxide Liq (Milk Of Magnesi (01/27/18 17:30) Sennosides (Senokot) (01/27/18 17:30) Bisacodyl Supp (Dulcolax Supp) (01/27/18 17:30) Labs Laboratory Tests Test 01/27/18 15:13 01/27/18 16:30 White Blood Count 12.2 TH/MM3 Red Blood Count 4.93 MIL/MM3 Hemoglobin 14.8 GM/DL Bedside Hemoglobin 15.0 G/DL Hematocrit 44.3 % Bedside Hematocrit 44.0 % Mean Corpuscular Volume 89.8 FL Mean Corpuscular Hemoglobin 30.0 PG Mean Corpuscular Hemoglobin Concent 33.4 % Red Cell Distribution Width 14.2 % Platelet Count 342 TH/MM3 Mean Platelet Volume 7.7 FL Neutrophils (%) (Auto) 66.2 % Lymphocytes (%) (Auto) 22.4 % Monocytes (%) (Auto) 6.8 % Eosinophils (%) (Auto) 2.3 % Basophils (%) (Auto) 2.3 % Neutrophils # (Auto) 8.1 TH/MM3 Lymphocytes # (Auto) 2.7 TH/MM3 Monocytes # (Auto) 0.8 TH/MM3 Eosinophils # (Auto) 0.3 TH/MM3 Basophils # (Auto) 0.3 TH/MM3 CBC Comment AUTO DIFF Differential Comment AUTO DIFF CONFIRMED Platelet Estimate NORMAL Platelet Morphology Comment NORMAL Red Cell Morphology Comment NORMAL Bedside Sodium 140 MMOL/L Bedside Potassium 3.9 MMOL/L Bedside Chloride 105 MMOL/L Bedside Blood Urea Nitrogen 21 MG/DL Bedside Creatinine 0.9 MG/DL Bedside Glucose 101 MG/DL Triglycerides Level 144 MG/DL Cholesterol Level 132 MG/DL LDL Cholesterol 34 MG/DL HDL Cholesterol 69.3 MG/DL Cholesterol/HDL Ratio 1.90 RATIO Ethyl Alcohol Level 38 MG/DL Prothrombin Time 10.3 SEC Prothromb Time International Ratio 1.0 RATIO Activated Partial Thromboplast Time 24.0 SEC MDM Medical Decision Making Medical Screen Exam Complete: Yes Emergency Medical Condition: Yes Interpretation(s) EKG: NSR 79bpm. Normal axis. Poor baseline. It is reading acute [place] in inferior leads but there is no ST segment elevation and has really poor baseline. Will repeat EKG when pt is not trembling. Pt has no chest pain or sob. Repeat EKG: NSR 75bpm. Normal axis. No ST segment elevation. Mild ST depression V5, V6. Differential Diagnosis CVA vs. alcohol intoxication vs. chronic pain Narrative Course 82yo F was brought in as stroke alert at lunch because she had difficulty forming her words. Pt was rushed to CT scan after initial NIH stroke scale performed. CT brain showed old lacunar infarct. No acute ICH. CTA ordered since pt's NIH more than 6. Pt has alcohol on breath and admits to drinking 1- 2 beers. Said she normally does not drink. Upon further evaluation, pt said her bilateral arms have been weak for 2 weeks and bilateral legs have been weak for 1 week. Pt uses a cane and has difficulty ambulating. Pt's speech is now normal. Discussed with neurologist Dr. Sanchez at 3:32pm and do not feel that TPA is indicated at this time. Dr. Sanchez also came to evaluate patient. Labs reviewed, WBC 12.2. H/H normal. BMP unremarkable. Blood alcohol 38. CTA head showed no acute intracranial abnormality. CTA neck showed mild atherosclerotic plaque in carotid arteries bilaterally. No hemodynamically significant stenosis. CT brain showed stable chronic appearing white matter disease and remote infarcts. Atrophy. Discussed with Dr. Kim and accepted to her service. Diagnosis Primary Impression: TIA (transient ischemic attack) Qualified Codes: G45.9 - Transient cerebral ischemic attack, unspecified Admitting Information Admitting Physician Requests: Juana Dominguez DO Jan 27, 2018 15:53
--- NOTE | 2018-01-27 16:16 | RADRPT ---
EXAM DATE/TIME: 01/27/2018 15:26 [facility] COMPARISON: No previous studies available for comparison. INDICATIONS : Stroke alert, left sided weakness, aphasia. IV CONTRAST: 75 cc Omnipaque 350 (iohexol) IV ; Cumulative dose for multiple exams. RADIATION DOSE: 26.47 CTDIvol (mGy) ; Combined studies MEDICAL HISTORY : Non-responsive. SURGICAL HISTORY : Non-responsive. ENCOUNTER: Initial ACUITY: 1 day PAIN SCALE: 0/10 LOCATION: neck Elevated flow velocities and ICA/CCA ratios have been found to correlate with increased degrees of vessel stenosis, calculated as percentage of diameter relative to a normal segment of distal ICA/CCA. TECHNIQUE: Volumetric scanning was performed using a multirow detector CT scanner. The data was post processed with a variety of visualization algorithms including full-volume maximum intensity projection, multip lanar sliding thin-slab reformation, curved-planar reformation, and surface-rendering techniques. Us ing automated exposure control and adjustment of the mA and/or kV according to patient size, radiatio n dose was kept as low as reasonably achievable to obtain optimal diagnostic quality images. DICOM f ormat image data is available electronically for review and comparison. FINDINGS: Great vessel origins are patent. There is mild calcified plaque in both common carotid and internal c arotid arteries, status around the bifurcation but no hemodynamically significant stenosis. Vertebral arteries are patent in the neck. Right vertebral artery slightly dominant. Basilar artery i s patent. Incidental note made of multiple bilateral thyroid nodules, largest measuring about 1.6 cm on the lef t. CONCLUSION: 1. Mild atherosclerotic plaque in the carotid arteries bilaterally. No hemodynamically significant st enosis. 2. Multiple bilateral thyroid nodules. Adin Salas MD on January 27, 2018 at 16:08 Board Certified Radiologist. This report was verified electronically.
--- NOTE | 2018-01-27 16:27 | MB ---
cc: Melissa Sanchez MD DATE OF CONSULT: 01/27/2018 REASON FOR CONSULTATION: Stroke alert. HISTORY OF PRESENT ILLNESS: The patient is an 82-year-old woman who was having lunch/early dinner with family when she started having some trouble speaking. Stroke alert was called and she was brought in. Her speech is normal now. Apparently, last normal was at 2:04 p.m. I believe via the emergency department, they had an NIH of 13. She is just complaining of generalized weakness in all 4 extremities. She has had back surgery. She states she has had a stroke in the past. She does admit to taking baby aspirin. PAST MEDICAL HISTORY: Kidney stones, chronic arthritis, stroke in the past, GERD, coronary artery disease, hyperlipidemia, hypertension. SOCIAL HISTORY: Drinks a couple of beers a day. No tobacco. No substance abuse. ALLERGIES: FISH, SULFA, PENICILLIN, OXYCODONE, TETRACYCLINE, MDRO VRE IN THE URINE, SEAFOOD POSSIBLY. HOME MEDICINES: Norvasc, Macro-Bid, cilostazol, atorvastatin, baby aspirin, metoprolol, pantoprazole, possible Cipro. PHYSICAL EXAMINATION: VITALS: Temperature is 97.7, pulse 79, respiratory rate 17, blood pressure 141/63, satting at 98% on 2 L. NECK: Supple. No appreciable bruits. HEART: Regular. NEUROLOGIC: She is awake and alert. She is oriented. Her speech is fluent. There is no aphasia, no dysarthria. Face is symmetrical. Visual caraballo full. Tongue midline. Facial sensation is normal. Normal motor, normal tone. No drift. She does have a tremor of her outstretched hands that is resolved when I distract her. She can do [id number] with no dysmetria. No cogwheeling. No drift. Strength is intact bilaterally. Lower extremity strength is intact, but she cannot lift them together, she has had back surgery, she can lift them separately. Right toe is questionable upgoing, left toe is down. DTRs are 1+. Sensory is normal. Gait is withheld. LABORATORY STUDIES: Reviewed from today. White count 12.2. Chemistry is intact. There are no other labs to review today. Her CT of the head shows chronic white matter disease and remote infarcts, nothing acute. Her head CTA was negative. Carotids still pending. IMPRESSION: Questionable transient ischemic attack. Recommend just going ahead and getting a TIA workup. We can get an MRI brain. She does not need a carotid ultrasound or an MRA, but she needs an MRI brain and a 2-D echo. Maintain her on 325 mg aspirin daily. Check a lipid panel. Put her on Lovenox and SCDs for DVT prevention. Watch her for any alcohol withdrawal in the event she does drink more than she states. PT, OT, speech therapy assessment. Put her on saline 75 mL an hour and discharge planning if workup is unremarkable. No tPA due to not meeting criteria. Patient is back to baseline. Melissa Sanchez MD DF/TI , 04:08 PM , 04:26 PM
[2018-01-27 17:03] LABS: CHOLESTEROL/ HDL RATIO 1.9 RATIO; HDL CHOLESTEROL 69.3 MG/DL (40.0-60.0)
[2018-01-27] MEDS: ASPIRIN EC 325 MG TABEC PO SCH (17:03)
[2018-01-27 17:19] LABS: PROTHROMBIN TIME - PATIENT 10.3 SEC (9.8-11.6)
--- NOTE | 2018-01-27 17:24 | RADRPT ---
EXAM DATE/TIME: 01/27/2018 16:36 [facility] COMPARISON: CTA BRAIN W 3D RECON, January 27, 2018, 15:26. CT BRAIN W/O CONTRAST, January 27, 2018, 15:16. INDICATIONS : Slurred speech. Resolved. MEDICAL HISTORY : Hypertension. Renal insufficiency. SURGICAL HISTORY : Fusion, lumbar. Tonsillectomy. Hysterectomy. Appendectomy. ENCOUNTER: Initial ACUITY: 1 day PAIN SCORE: 0/10 LOCATION: cranial TECHNIQUE: Multiplanar, multisequence MRI of the brain was performed without contrast. FINDINGS: There is no evidence of acute infarct on diffusion weighted imaging. There is diffuse atrophy. Pontin e, basal ganglia and lacunar infarcts are present bilaterally. Right frontal periventricular lacunar infarct. Moderate patchy and confluent increased flair signal in the bilateral centrum semiovale and periventricular white matter characteristic of chronic microvascular ischemic change. There is no arleen dence of intracranial hemorrhage. No masses. CONCLUSION: Atrophy and white matter disease with remote lacunar infarcts. No signs of acute infarction or hemorr keturah. Marco Antonio Gomez MD on January 27, 2018 at 17:20 Board Certified Radiologist. This report was verified electronically.
[2018-01-27] MEDS ORDERED: BISACODYL 10 MG SUPP RECTAL PRN (17:30)
[2018-01-27] MEDS ORDERED: MAGNESIUM HYDROXIDE SUSP 30 ML CUP PO PRN (17:30)
[2018-01-27] MEDS ORDERED: NALOXONE HCL 0.4 MG/ML AMP IV PUSH PRN (17:30)
[2018-01-27] MEDS ORDERED: SENNOSIDES 8.6 MG TAB PO PRN (17:30)
[2018-01-27] MEDS ORDERED: SODIUM CHLORIDE 0.9% FLUSH 10 ML FLUSH IV FLUSH PRN (17:30)
[2018-01-27] MEDS ORDERED: ACETAMINOPHEN 325 MG TAB PO PRN (17:30)
[2018-01-27] MEDS ORDERED: ONDANSETRON HCL 4 MG/2 ML VIAL IVP PRN (17:30)
[2018-01-27 18:30] VITALS: BP 134/55; PULSE 76; RESP 16; TEMP 97.8; O2SAT 96
[2018-01-27] MEDS: SODIUM CHLOR 0.9% 1000 ML INJ 1,000 ML IV SCH (18:43)
[2018-01-27 20:50] VITALS: PULSE 84
[2018-01-27] MEDS: SODIUM CHLORIDE 0.9% FLUSH 10 ML FLUSH IV FLUSH SCH (21:04)
[2018-01-27] MEDS: MORPHINE SULFATE 2 MG/ML INJ IV PUSH PRN (21:05)
--- NOTE | 2018-01-27 21:29 | HHI.HP ---
[facility] Service [facility] Primary Care Physician Unknown Admission Diagnosis TIA Diagnoses: Chief Complaint: Lower extremity weakness and trouble speaking Travel History International Travel<30 Days: No Contact w/Intl Traveler <30 Da: No Traveled to Known Affected Are: No History of Present Illness 82-year-old female with a history of CAD, hyperlipidemia, hypertension, and CVA 2005 was brought in by family to the emergency room for difficulty speaking. Patient states she was having lunch today with her family and she began to have trouble speaking and then when she got up from the table she had weakness in her bilateral lower extremities. She denies any associated chest pain or shortness of breath. He denies falling. She states she did have a beer at lunch but only drinks socially. Review of Systems Except as stated in HPI: all other systems reviewed are Neg Past Family Social History Past Medical History CAD Hyperlipidemia Hypertension, not on any medications CVA Chronic UTIs GERD Past Surgical History Hysterectomy Breast surgery Reported Medications Reported Meds & Active Scripts Active Norvasc (Amlodipine Besylate) 5 Mg Tab 5 Mg PO DAILY Macrobid (Nitrofurantoin Monoh/Nitrofur Macro) 100 Mg Cap 100 Mg PO BID 10 Days Cilostazol 100 Mg Tab 100 Mg PO BID Atorvastatin (Atorvastatin Calcium) 20 Mg Tab 20 Mg PO HS Reported Cipro (Ciprofloxacin HCl) 500 Mg Tab 500 Mg PO BID Aspirin Low Dose (Aspirin) 81 Mg Chew 81 Mg PO DAILY Metoprolol Tartrate 25 Mg Tab 25 Mg PO BID Pantoprazole (Pantoprazole Sodium) 40 Mg Tab 40 Mg PO DAILY Allergies: Coded Allergies: Fish Containing Products (Unverified Allergy, Severe, SOB, 01/27/18) Sulfa (Sulfonamide Antibiotics) (Unverified Allergy, Severe, Swelling, 01/27) penicillin G (Unverified Allergy, Severe, sob, 01/27/18) oxytetracycline (Unverified Allergy, Mild, SOB, 01/27/18) *MDRO Multi-Drug Resistant Organism (Verified Adverse Reaction, Unknown, ) 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 Uncoded Allergies: SEAFOOD (Adverse Reaction, Severe, RED ALL OVER, 08/10/17) Active Ordered Medications Current Medications Medications (Trade) Dose Ordered Sig/Carter Route Start Time Stop Time Status Last Admin (Ecotrin Ec) 325 mg DAILY PO 01/27/18 16:15 01/27/18 17:03 Sodium Chloride 1,000 ml @ 100 mls/hr Q10H IV 01/27/18 17:21 01/27/18 18:43 (NS Flush) 2 ml UNSCH PRN IV FLUSH 01/27/18 17:30 (NS Flush) 2 ml BID IV FLUSH 01/27/18 21:00 01/27/18 21:04 (Tylenol) 650 mg Q4H PRN PO 01/27/18 17:30 (Zofran Inj) 4 mg Q6H PRN IVP 01/27/18 17:30 (Narcan Inj) 0.4 mg UNSCH PRN IV PUSH 01/27/18 17:30 (Milk Of Magnesia Liq) 30 ml Q12H PRN PO 01/27/18 17:30 (Senokot) 17.2 mg Q12H PRN PO 01/27/18 17:30 (Dulcolax Supp) 10 mg DAILY PRN RECTAL 01/27/18 17:30 (Morphine Inj) 2 mg Q3H PRN IV PUSH 01/27/18 21:00 01/27/18 21:05 Family History Mom: Heart disease, at age 100 Social History Tobacco use: Denies Alcohol use: Socially Illicit drug use: Denies Physical Exam Vital Signs Vital Signs Date Time Temp Pulse Resp B/P (MAP) Pulse Ox O2 Delivery O2 Flow Rate FiO2 01/27/18 18:30 97.8 76 16 134/55 (81) 96 01/27/18 18:27 01/27/18 15:32 79 17 141/63 (89) 98 Nasal Cannula 2.00 01/27/18 15:05 97.7 84 17 157/111 (126) 98 Physical Exam GENERAL: This is a well-nourished, well-developed patient, in no apparent distress. SKIN: No rashes, ecchymoses or lesions. Cool and dry. HEAD: Atraumatic. Normocephalic. EYES: Pupils equal round and reactive. Extraocular motions intact. ENT: Nose without bleeding, purulent drainage or septal hematoma. Airway patent. NECK: Trachea midline. No JVD or lymphadenopathy. CARDIOVASCULAR: Regular rate and rhythm without murmurs, gallops, or rubs. RESPIRATORY: Clear to auscultation. Breath sounds equal bilaterally. No wheezes , rales, or rhonchi. GASTROINTESTINAL: Abdomen soft, non-tender, nondistended. MUSCULOSKELETAL: Extremities without clubbing, cyanosis, or edema. No calf tenderness. No extremity drift. NEUROLOGICAL: Awake and alert. Cranial nerves II through XII intact. Motor and sensory grossly within normal limits. Five out of 5 muscle strength in all muscle groups. Normal speech with intermittent slurred speech. No facial droop. Laboratory Laboratory Tests Test 01/27/18 15:13 01/27/18 16:30 White Blood Count 12.2 Red Blood Count 4.93 Hemoglobin 14.8 Bedside Hemoglobin 15.0 Hematocrit 44.3 Bedside Hematocrit 44.0 Mean Corpuscular Volume 89.8 Mean Corpuscular Hemoglobin 30.0 Mean Corpuscular Hemoglobin Concent 33.4 Red Cell Distribution Width 14.2 Platelet Count 342 Mean Platelet Volume 7.7 Neutrophils (%) (Auto) 66.2 Lymphocytes (%) (Auto) 22.4 Monocytes (%) (Auto) 6.8 Eosinophils (%) (Auto) 2.3 Basophils (%) (Auto) 2.3 Neutrophils # (Auto) 8.1 Lymphocytes # (Auto) 2.7 Monocytes # (Auto) 0.8 Eosinophils # (Auto) 0.3 Basophils # (Auto) 0.3 CBC Comment AUTO DIFF Differential Comment AUTO DIFF CONFIRMED Platelet Estimate NORMAL Platelet Morphology Comment NORMAL Red Cell Morphology Comment NORMAL Bedside Sodium 140 Bedside Potassium 3.9 Bedside Chloride 105 Bedside Blood Urea Nitrogen 21 Bedside Creatinine 0.9 Bedside Glucose 101 Triglycerides Level 144 Cholesterol Level 132 LDL Cholesterol 34 HDL Cholesterol 69.3 Cholesterol/HDL Ratio 1.90 Ethyl Alcohol Level 38 Prothrombin Time 10.3 Prothromb Time International Ratio 1.0 Activated Partial Thromboplast Time 24.0 Result Diagram: 01/27/181512 Imaging Last Impressions Neck CTA 01/27/181512 Signed Impressions: Service Date/Time: Saturday, January 27, 2018 15:26 - CONCLUSION: 1. Mild atherosclerotic plaque in the carotid arteries bilaterally. No hemodynamically significant stenosis. 2. Multiple bilateral thyroid nodules. Adin Salas MD Head CTA 3/4/18 1513 Signed Impressions: Service Date/Time: Saturday, January 27, 2018 15:26 - CONCLUSION: 1. No acute intracranial abnormality. Yazan Luciano Jr., MD Head CT 01/27/18 0000 Signed Impressions: Service Date/Time: Saturday, January 27, 2018 15:16 - CONCLUSION: 1. Stable chronic appearing white matter disease and remote infarcts. 2. Atrophy. Marco Antonio Gomez MD Brain MRI 01/27/18 0000 Signed Impressions: Service Date/Time: Saturday, January 27, 2018 16:36 - CONCLUSION: Atrophy and white matter disease with remote lacunar infarcts. No signs of acute infarction or hemorrhage. Marco Antonio Gomez MD Caprini VTE Risk Assessment Caprini VTE Risk Assessment: Mod/High Risk (score >= 2) Caprini Risk Assessment Model Point Value = 1 Point Value = 2 Point Value = 3 Point Value = 5 Age 41-60 Minor surgery BMI > 25 kg/m2 Swollen legs Varicose veins or History of unexplained or recurrent spontaneous Oral contraceptives or hormone replacement Sepsis (< 1 month) Serious lung disease, including pneumonia (< 1 month) Abnormal pulmonary function Acute myocardial infarction Congestive heart failure (< 1 month) History of inflammatory bowel disease Medical patient at bed rest Age 61-74 Arthroscopic surgery Major open surgery (> 45 min) Laparoscopic surgery (> 45 min) Malignancy Confined to bed (> 72 hours) Immobilizing plaster cast Central venous access Age >= 75 History of VTE Family history of VTE Factor V Leiden Prothrombin [id number] Lupus anticoagulant Anticardiolipin antibodies Elevated serum homocysteine Heparin-induced thrombocytopenia Other congenital or acquired thrombophilia Stroke (< 1 month) Elective arthroplasty Hip, pelvis, or leg fracture Acute spinal cord injury (< 1 month) Prophylaxis Regimen Total Risk Factor Score Risk Level Prophylaxis Regimen 0-1 Low Early ambulation 2 Moderate Order ONE of the following: *Sequential Compression Device (SCD) *Heparin 5000 units SQ BID 3-4 Higher Order ONE of the following medications: *Heparin 5000 units SQ TID *Enoxaparin/Lovenox 40 mg SQ daily (WT < 150 kg, CrCl > 30 mL/min) *Enoxaparin/Lovenox 30 mg SQ daily (WT < 150 kg, CrCl > 10-29 mL/min) *Enoxaparin/Lovenox 30 mg SQ BID (WT < 150 kg, CrCl > 30 mL/min) AND/OR *Sequential Compression Device (SCD) 5 or more Highest Order ONE of the following medications: *Heparin 5000 units SQ TID (Preferred with Epidurals) *Enoxaparin/Lovenox 40 mg SQ daily (WT < 150 kg, CrCl > 30 mL/min) *Enoxaparin/Lovenox 30 mg SQ daily (WT < 150 kg, CrCl > 10-29 mL/min) *Enoxaparin/Lovenox 30 mg SQ BID (WT < 150 kg, CrCl > 30 mL/min) AND *Sequential Compression Device (SCD) Assessment and Plan Problem List: (1) TIA (transient ischemic attack) ICD Code: G45.9 - Transient cerebral ischemic attack, unspecified Status: Acute (2) Hypertension ICD Code: I10 - Essential (primary) hypertension Status: Chronic (3) UTI (urinary tract infection) ICD Code: N39.0 - Urinary tract infection, site not specified Status: Chronic Assessment and Plan 82-year-old female with a history of CAD, hyperlipidemia, hypertension was brought in by family to the emergency room for difficulty speaking. TIA, acute CTA head reviewed and shows no acute abnormalities, neck CTA shows mild atherosclerotic plaque in the carotid arteries bilaterally no significant stenosis. -Consult neurology -PT/OT/ST -Nothing by mouth IVF for hydration -2-D echo ordered, MRI reviewed and shows no acute abnormalities -Lovenox, okayed by her neurology -Aspirin daily -Lipid panel Chronic back pain -IV morphine for pain management while nothing by mouth Hypertension, chronic -Continue Norvasc daily, monitor vitals Chronic UTI's -Resume home antibiotics Hyperlipidemia, chronic -Resumed home medications Lipitor Alcohol use, questionable abuse -CIWA protocol, seizure precautions -Thiamine daily DVT prophylaxis: SCDs, Lovenox Discussed Condition With Patient and RN Problem Qualifiers (1) TIA (transient ischemic attack): Qualified Codes: G45.9 - Transient cerebral ischemic attack, unspecified (2) UTI (urinary tract infection): Qualified Codes: N39.0 - Urinary tract infection, site not specified Chantal Ma Jan 27, 2018 21:29
[2018-01-27] MEDS ORDERED: FLUMAZENIL 0.5 MG/5 ML VIAL IV PUSH PRN (21:30)
[2018-01-27] MEDS ORDERED: LORazepam 2 MG TAB PO PRN (21:30)
[2018-01-27] MEDS ORDERED: LORazepam 2 MG/ML VIAL IV PUSH PRN ×4 (21:30)
[2018-01-27] MEDS ORDERED: LORazepam 1 MG TAB PO PRN (21:30)
[2018-01-27] MEDS: ENOXAPARIN SODIUM 40 MG/0.4 ML SYRINGE SQ SCH (23:43)
[2018-01-27] MEDS: THIAMINE INJ 100 MG in SODIUM CHLORIDE 0.9% INJ 100 ML IV SCH (23:43)
[2018-01-27 23:54] VITALS: BP 140/58; PULSE 73; RESP 15; TEMP 98.3; O2SAT 94
[2018-01-28] VITALS (9 sets, daily range): BP systolic 124–147; BP diastolic 56–64; PULSE 69–96; RESP 15–20; TEMP 97.3–99.5; O2SAT 94–96
[2018-01-28] MEDS: SODIUM CHLOR 0.9% 1000 ML INJ 1,000 ML IV SCH (07:48)
[2018-01-28] MEDS: SODIUM CHLORIDE 0.9% FLUSH 10 ML FLUSH IV FLUSH SCH ×2 (09:00→22:12)
[2018-01-28] MEDS ORDERED: amLODIPine BESYLATE 5 MG TAB PO SCH (09:00)
--- NOTE | 2018-01-28 09:30 | MG ---
cc: Kelvin Meyers MD An 82-year-old woman, stroke alert, difficulty with her words, stroke in the past. Aspirin, morphine. 7 Hz, 60 uV to 70 uV symmetric posterior rhythm is seen. Sometimes she gets up to 8 Hz. Recording overall is synchronous and symmetric. I do not see any epileptiform or seizure activity. No hemisphere asymmetry is noted. Some mild diffuse theta slowing is seen. Hyperventilation was not performed. Photic stimulation was performed without significant posterior driving. IMPRESSION: Some mild diffuse theta slowing is noted; otherwise a normal electroencephalogram. No focal abnormality was noted. No seizure activity was seen. Kelvin Meyers MD DJM/TI , 09:23 AM , 09:28 AM
--- NOTE | 2018-01-28 12:39 | HHI.PR ---
Subjective Remarks F/u TIA. States she is feeling much better still having tremors. Discussed with nursing and physical therapy recommending home health care. Objective Vitals Vital Signs Date Time Temp Pulse Resp B/P (MAP) Pulse Ox O2 Delivery O2 Flow Rate FiO2 01/28/18 08:15 99.5 96 18 124/59 (80) 94 01/28/18 07:54 98.1 69 18 138/63 (88) 96 01/28/18 03:52 98.3 69 15 133/60 (84) 94 01/28/18 00:00 78 01/27/18 23:54 98.3 73 15 140/58 (85) 94 01/27/18 20:50 84 01/27/18 18:30 97.8 76 16 134/55 (81) 96 01/27/18 18:27 01/27/18 15:32 79 17 141/63 (89) 98 Nasal Cannula 2.00 01/27/18 15:05 97.7 84 17 157/111 (126) 98 Result Diagram: 01/27/18 1513 Imaging Last Impressions Neck CTA 01/27/18 1513 Signed Impressions: Service Date/Time: Saturday, January 27, 2018 15:26 - CONCLUSION: 1. Mild atherosclerotic plaque in the carotid arteries bilaterally. No hemodynamically significant stenosis. 2. Multiple bilateral thyroid nodules. Adin Salas MD Head CTA 01/27/18 1513 Signed Impressions: Service Date/Time: Saturday, January 27, 2018 15:26 - CONCLUSION: 1. No acute intracranial abnormality. Yazan Luciano Jr., MD Head CT 01/27/18 0000 Signed Impressions: Service Date/Time: Saturday, January 27, 2018 15:16 - CONCLUSION: 1. Stable chronic appearing white matter disease and remote infarcts. 2. Atrophy. Marco Antonio Gomez MD Brain MRI 01/27/18 0000 Signed Impressions: Service Date/Time: Saturday, January 27, 2018 16:36 - CONCLUSION: Atrophy and white matter disease with remote lacunar infarcts. No signs of acute infarction or hemorrhage. Marco Antonio Gomez MD Objective Remarks GENERAL: This is a well-nourished, well-developed patient, in no apparent distress. SKIN: No rashes, ecchymoses or lesions. Cool and dry. CARDIOVASCULAR: Regular rate and rhythm without murmurs, gallops, or rubs. RESPIRATORY: Clear to auscultation. Breath sounds equal bilaterally. No wheezes , rales, or rhonchi. GASTROINTESTINAL: Abdomen soft, non-tender, nondistended. MUSCULOSKELETAL: Extremities without clubbing, cyanosis, or edema. No calf tenderness. No extremity drift. NEUROLOGICAL: Awake and alert. Cranial nerves II through XII intact. Motor and sensory grossly within normal limits. Five out of 5 muscle strength in all muscle groups. Normal speech with intermittent slurred speech. No facial droop. Mild tremors Procedures None A/P Problem List: (1) TIA (transient ischemic attack) ICD Code: G45.9 - Transient cerebral ischemic attack, unspecified Status: Acute (2) Hypertension ICD Code: I10 - Essential (primary) hypertension Status: Chronic (3) UTI (urinary tract infection) ICD Code: N39.0 - Urinary tract infection, site not specified Status: Chronic Assessment and Plan 82-year-old female with a history of CAD, hyperlipidemia, hypertension was brought in by family to the emergency room for difficulty speaking. TIA, acute. Stable. Stroke workup unremarkable. Continue aspirin and Lipitor. Risk factor modification. Physical therapy recommending home health care Mild tremors. Check TSH. Alcohol use, questionable abuse. Ct CIWA protocol, seizure precautions. Thiamine daily Chronic back pain. Stable Hypertension, chronic. Continue Norvasc daily, monitor vitals Chronic UTI's. Resume home antibiotics Hyperlipidemia, chronic. Resumed home medications Lipitor DVT prophylaxis: SCDs, Lovenox Discharge Planning Possible discharge in 1-2 days with home care Problem Qualifiers (1) TIA (transient ischemic attack): Qualified Codes: G45.9 - Transient cerebral ischemic attack, unspecified (2) UTI (urinary tract infection): Qualified Codes: N39.0 - Urinary tract infection, site not specified Phil Torre MD Jan 28, 2018 12:39
--- NOTE | 2018-01-28 13:39 | ECHRPT ---
Indication: CVA/TIA CONCLUSIONS Normal left ventricular size and wall thickness. The left ventricular systolic function is normal wi th an estimated ejection fraction in the range of 60-65%. No regional wall motion abnormalities are prese nt. There is trace tricuspid valve regurgitation. Normal estimated pulmonary pressures. BP: 157 / 111 HR: 84 Rhythm: Sinus MEASUREMENTS (Male / Female) Normal Values Technical Quality:Poor 2D ECHO LVOT Diameter 1.7 cm LV Ejection Fraction MOD 4C 61.3 % LV Cardiac Index MOD 4C 1960.3 cm/minm LV Ejection Fraction 4C AL 63.4 % LV Cardiac Index 4C AL 2166.7 cm/minm M-MODE LV Diastolic Diameter MM 4.9 cm 4.2 - 5.9 / 3.9 - 5.3 cm LV Systolic Diameter MM 3.3 cm LV Ejection Fraction MM Teich 61.0 % LV Cardiac Index MM Teich 3581.7 cm/minm IVS Diastolic Thickness MM 1.0 cm 0.6 - 1.0 / 0.6 - 0.9 cm LVPW Diastolic Thickness MM 1.0 cm 0.6 - 1.0 / 0.6 - 0.9 cm LV Relative Wall Thickness MM 0.4 0.24 - 0.42 / 0.22 - 0.42 LV Mass Index MM 104.8 g/m 49 - 115 / 43 - 95 g/m Aortic Root Diameter MM 2.3 cm AV Cusp Separation MM 1.4 cm DOPPLER AV Peak Velocity 159.0 cm/s AV Peak Gradient 10.1 mmHg LVOT Peak Velocity 99.2 cm/s LVOT Peak Gradient 3.9 mmHg AV Area Cont Eq pk 1.4 cm MV Area PHT 3.7 cm Mitral E Point Velocity 96.3 cm/s Mitral A Point Velocity 97.7 cm/s Mitral E to A Ratio 1.0 LV E' Lateral Velocity 6.1 cm/s Mitral E to LV E' Lateral Ratio 15.7 LV E' Septal Velocity 5.9 cm/s Mitral E to LV E' Septal Ratio 16.2 TR Peak Velocity 261.0 cm/s TR Peak Gradient 27.2 mmHg Right Atrial Pressure 10.0 mmHg Pulmonary Artery Systolic Pressu 37.2 mmHg Right Ventricular Systolic Press 37.2 mmHg PV Peak Velocity 92.3 cm/s PV Peak Gradient 3.4 mmHg FINDINGS LEFT VENTRICLE Normal left ventricular size and wall thickness. The left ventricular systolic function is normal wi th an estimated ejection fraction in the range of 60-65%. No regional wall motion abnormalities are prese nt. RIGHT VENTRICLE Normal right ventricular size and systolic function. LEFT ATRIUM The left atrial size is normal. RIGHT ATRIUM The right atrial size is normal. ATRIAL SEPTUM Normal atrial septal thickness without atrial level shunting by limited color doppler interrogation. AORTA The aortic root and proximal ascending aorta are normal in size on limited imaging. MITRAL VALVE Structurally normal mitral valve. No mitral valve stenosis or regurgitation. AORTIC VALVE Trileaflet aortic valve. No aortic valve stenosis or regurgitation. TRICUSPID VALVE Structurally normal tricuspid valve. There is trace tricuspid valve regurgitation. Normal estimated pulmonary pressures. PULMONARY VALVE The pulmonary valve is not well visualized. VESSELS The inferior vena cava is normal in size. PERICARDIUM No pericardial effusion. Speedy Melendez MD (Electronically Signed) Final Date:28 January 2018 13:37
[2018-01-28] MEDS: CIPROFLOXACIN 500 MG TAB PO SCH ×2 (13:57→22:13)
[2018-01-28] MEDS: METOPROLOL TARTRATE 25 MG TAB PO SCH ×2 (13:58→22:13)
[2018-01-28] MEDS: CILOSTAZOL 100 MG TAB PO SCH ×2 (13:58→22:13)
[2018-01-28] MEDS: NITROFURANTOIN MONOHYD MACROCR 100 MG CAP PO SCH ×2 (13:58→22:13)
[2018-01-28] MEDS: ASPIRIN EC 325 MG TABEC PO SCH (13:58)
[2018-01-28] MEDS: PANTOPRAZOLE SOD 40 MG DELAYED RELEASE TAB PO SCH (14:00)
[2018-01-28] MEDS ORDERED: VITA100T54 PO (14:46)
--- NOTE | 2018-01-28 14:47 | HHI.DCPOC ---
Discharge Care Plan Diagnosis: (1) TIA (transient ischemic attack) Your Health Problems Are: Difficulty with ADL Exercise Tolerance Goals to Promote Your Health * To prevent worsening of your condition and complications * To maintain your health at the optimal level Directions to Meet Your Goals Take your medications as prescribed Follow your dietary instruction Follow activity as directed Keep your appointments as scheduled Take your immunizations and boosters as scheduled If your symptoms worsen call your PCP, if no PCP go to Urgent Care Center or Emergency Room Smoking is Dangerous to Your Health. Avoid second hand smoke Call the 24-hour hour crisis hotline for domestic abuse at Phil Torre MD Jan 28, 2018 14:47
--- NOTE | 2018-01-28 14:48 | HHI.FF ---
Face to Face Verification Diagnosis: (1) TIA (transient ischemic attack) Physical Therapy Order: Evaluate and Treat, Improve ambulation, Strength and gait training Home Health Nursing Order: Medical education Signs/symptoms of disease process Nursing assessment with vital signs I have seen patient Elis Hickman on 01/28/18. My clinical findings support the need for the requested home health care services because: Ltd mobility - disease progression I certify that my clinical findings support that this patient is homebound because: Unsafe to leave home unassisted Need for psychosocial assistance Phil Torre MD Jan 28, 2018 14:48
[2018-01-28 18:53] LABS: BACTERIA, URINE RARE /hpf; BILIRUBIN, URINE NEG (NEG); BLOOD, URINE NEG (NEG); GLUCOSE,URINE 70 mg/dL (NEG); KETONE, URINE NEG (NEG); MUCUS URINE FEW /lpf (OCC); NITRITE,URINE NEG (NEG); SQUAMOUS EPITHELIAL CELL URINE 1 /hpf (0-5); URINE COLOR YELLOW (YELLW/STRAW); URINE LEUKOCYTE ESTERASE TRACE (NEG)
[2018-01-28] MEDS ORDERED: ATORVASTATIN 20 MG TAB PO SCH (21:00)
[2018-01-28] MEDS: ENOXAPARIN SODIUM 40 MG/0.4 ML SYRINGE SQ SCH (22:14)
[2018-01-29] MEDS: THIAMINE INJ 100 MG in SODIUM CHLORIDE 0.9% INJ 100 ML IV SCH (00:34)
[2018-01-29] MEDS: MORPHINE SULFATE 2 MG/ML INJ IV PUSH PRN (00:41)
[2018-01-29 03:38] VITALS: PULSE 80
[2018-01-29 05:01] VITALS: BP 124/81; PULSE 73; RESP 16; O2SAT 94
[2018-01-29 08:00] VITALS: PULSE 72
[2018-01-29 08:02] VITALS: BP 163/72; PULSE 80; RESP 16; TEMP 98.2; O2SAT 95
[2018-01-29] MEDS ORDERED: AMLO5 PO (08:13)
[2018-01-29] MEDS: SODIUM CHLORIDE 0.9% FLUSH 10 ML FLUSH IV FLUSH SCH (09:00)
[2018-01-29] MEDS: CILOSTAZOL 100 MG TAB PO SCH (11:24)
[2018-01-29] MEDS: CIPROFLOXACIN 500 MG TAB PO SCH (11:24)
[2018-01-29] MEDS: ASPIRIN EC 325 MG TABEC PO SCH (11:26)
[2018-01-29] MEDS: METOPROLOL TARTRATE 25 MG TAB PO SCH (11:30)
[2018-01-29] MEDS: NITROFURANTOIN MONOHYD MACROCR 100 MG CAP PO SCH (11:31)
[2018-01-29] MEDS: PANTOPRAZOLE SOD 40 MG DELAYED RELEASE TAB PO SCH (11:31)
--- NOTE | 2018-01-29 13:53 | HHI.PR ---
Subjective Remarks Follow-up encephalopathy. Patient became confused after receiving morphine. Discussed with grandson, patient has history of adverse reaction to morphine causing confusion and agitation. Patient at this time is no complaints she is oriented 2. According to grandson, patient has had a history of confusion with UTI which is currently being treated for. Discussed with nursing Objective Vitals Vital Signs Date Time Temp Pulse Resp B/P (MAP) Pulse Ox O2 Delivery O2 Flow Rate FiO2 01/29/18 08:02 98.2 80 16 163/72 (102) 95 01/29/18 05:01 73 16 124/81 (95) 94 01/29/18 03:38 80 01/28/18 23:38 98.0 78 16 143/56 (85) 95 01/28/18 19:48 97.4 83 20 147/64 (91) 96 01/28/18 18:01 20 01/28/18 15:30 98.0 72 18 132/60 (84) 96 I/O 01/28/18 01/28/18 01/28/18 01/29/18 01/29/18 01/29/18 07:00 15:00 23:00 07:00 15:00 23:00 Intake Total 250 ml Balance 250 ml Intake Oral 250 ml # Voids 4 Result Diagram: 01/27/181512 Imaging Last Impressions Neck CTA 01/27/183 Signed Impressions: Service Date/Time: Saturday, January 27, 2018 15:26 - CONCLUSION: 1. Mild atherosclerotic plaque in the carotid arteries bilaterally. No hemodynamically significant stenosis. 2. Multiple bilateral thyroid nodules. Adin Salas MD Head CTA 01/27/18 1513 Signed Impressions: Service Date/Time: Saturday, January 27, 2018 15:26 - CONCLUSION: 1. No acute intracranial abnormality. Yazan Luciano Jr., MD Head CT 01/27/18 0000 Signed Impressions: Service Date/Time: Saturday, January 27, 2018 15:16 - CONCLUSION: 1. Stable chronic appearing white matter disease and remote infarcts. 2. Atrophy. Marco Antonio Gomez MD Brain MRI 01/27/18 0000 Signed Impressions: Service Date/Time: Saturday, January 27, 2018 16:36 - CONCLUSION: Atrophy and white matter disease with remote lacunar infarcts. No signs of acute infarction or hemorrhage. Marco Antonio Gomez MD Objective Remarks GENERAL: This is a well-nourished, well-developed patient, in no apparent distress. SKIN: No rashes, ecchymoses or lesions. Cool and dry. CARDIOVASCULAR: Regular rate and rhythm without murmurs, gallops, or rubs. RESPIRATORY: Clear to auscultation. Breath sounds equal bilaterally. No wheezes , rales, or rhonchi. GASTROINTESTINAL: Abdomen soft, non-tender, nondistended. MUSCULOSKELETAL: Extremities without clubbing, cyanosis, or edema. No calf tenderness. No extremity drift. NEUROLOGICAL: Awake and alert. Cranial nerves II through XII intact. Motor and sensory grossly within normal limits. Five out of 5 muscle strength in all muscle groups. Normal speech with intermittent slurred speech. No facial droop. Resolved tremors Procedures None A/P Problem List: (1) TIA (transient ischemic attack) ICD Code: G45.9 - Transient cerebral ischemic attack, unspecified Status: Acute (2) Hypertension ICD Code: I10 - Essential (primary) hypertension Status: Chronic (3) UTI (urinary tract infection) ICD Code: N39.0 - Urinary tract infection, site not specified Status: Chronic Assessment and Plan 82-year-old female with a history of CAD, hyperlipidemia, hypertension was brought in by family to the emergency room for difficulty speaking. TIA, acute. Stable. Stroke workup unremarkable. Continue aspirin and Lipitor. Risk factor modification. Physical therapy recommending home health care Toxic encephalopathy from morphine sulfate and Ativan. Resolved mild tremors. TSH unremarkable. Alcohol use, questionable abuse. Ct CIWA protocol, seizure precautions. Thiamine daily Chronic back pain. Stable. Patient was also complaining of neck pain yesterday not today. No cervical spine tenderness Hypertension, chronic. Increased no worse for better control Chronic UTI's. Resume home antibiotics. Repeat urinalysis improved Glucosuria. Fasting glucose 101. Pending A1c Hyperlipidemia, chronic. Resumed home medications Lipitor Thyroid nodules. TSH therapeutic. Outpatient follow-up DVT prophylaxis: SCDs, Lovenox Discharge Planning Discharge patient to home Condition on discharge: Improved Regular Diet as tolerated Ad Michelle activity no driving Rx written: Norvasc and thiamine Follow-up with primary care physician and neurology Problem Qualifiers (1) TIA (transient ischemic attack): Qualified Codes: G45.9 - Transient cerebral ischemic attack, unspecified (2) UTI (urinary tract infection): Qualified Codes: N39.0 - Urinary tract infection, site not specified Phil Torre MD Jan 29, 2018 13:53
[2018-01-29 14:37] VITALS: BP 101/59; PULSE 69; RESP 16; TEMP 97.9; O2SAT 95
--- NOTE | 2018-01-29 16:58 | HHI.DS ---
Discharge Summary Admission Date Jan 27, 2018 at 17:24 Discharge Date: Jan 29, 2018 Admitting Diagnosis TIA (1) TIA (transient ischemic attack) ICD Code: G45.9 - Transient cerebral ischemic attack, unspecified Diagnosis: Principal Status: Acute (2) Hypertension ICD Code: I10 - Essential (primary) hypertension Diagnosis: Principal Status: Chronic (3) UTI (urinary tract infection) ICD Code: N39.0 - Urinary tract infection, site not specified Diagnosis: Principal Status: Chronic Procedures None Brief History - From Admission 82-year-old female with a history of CAD, hyperlipidemia, hypertension, and CVA 2005 was brought in by family to the emergency room for difficulty speaking. Patient states she was having lunch today with her family and she began to have trouble speaking and then when she got up from the table she had weakness in her bilateral lower extremities. She denies any associated chest pain or shortness of breath. He denies falling. She states she did have a beer at lunch but only drinks socially. CBC/BMP: 01/27/18 1513 Significant Findings Laboratory Tests Test 01/27/18 15:13 01/27/18 16:30 01/28/18 15:13 01/28/18 16:30 White Blood Count 12.2 TH/MM3 (4.0-11.0) Basophils (%) (Auto) 2.3 % (0.0-2.0) Neutrophils # (Auto) 8.1 TH/MM3 (1.8-7.7) Basophils # (Auto) 0.3 TH/MM3 (0-0.2) HDL Cholesterol 69.3 MG/DL (40.0-60.0) Ethyl Alcohol Level 38 MG/DL (0-5) Activated Partial Thromboplast Time 24.0 SEC (24.3-30.1) Urine Glucose (UA) 70 mg/dL (NEG) Urine Leukocyte Esterase TRACE (NEG) Urine Bacteria RARE /hpf (NONE) Urine Mucus FEW /lpf (OCC) Test 01/28/18 19:48 Imaging Last Impressions Neck CTA 01/27/18 1513 Signed Impressions: Service Date/Time: Saturday, January 27, 2018 15:26 - CONCLUSION: 1. Mild atherosclerotic plaque in the carotid arteries bilaterally. No hemodynamically significant stenosis. 2. Multiple bilateral thyroid nodules. Adin Salas MD Head CTA 01/27/18 1513 Signed Impressions: Service Date/Time: Saturday, January 27, 2018 15:26 - CONCLUSION: 1. No acute intracranial abnormality. Yazan Luciano Jr., MD Head CT 01/27/18 0000 Signed Impressions: Service Date/Time: Saturday, January 27, 2018 15:16 - CONCLUSION: 1. Stable chronic appearing white matter disease and remote infarcts. 2. Atrophy. Marco Antonio Gomez MD Brain MRI 01/27/18 0000 Signed Impressions: Service Date/Time: Saturday, January 27, 2018 16:36 - CONCLUSION: Atrophy and white matter disease with remote lacunar infarcts. No signs of acute infarction or hemorrhage. Marco Antonio Gomez MD PE at Discharge GENERAL: This is a well-nourished, well-developed patient, in no apparent distress. SKIN: No rashes, ecchymoses or lesions. Cool and dry. CARDIOVASCULAR: Regular rate and rhythm without murmurs, gallops, or rubs. RESPIRATORY: Clear to auscultation. Breath sounds equal bilaterally. No wheezes , rales, or rhonchi. GASTROINTESTINAL: Abdomen soft, non-tender, nondistended. MUSCULOSKELETAL: Extremities without clubbing, cyanosis, or edema. No calf tenderness. No extremity drift. NEUROLOGICAL: Awake and alert. Cranial nerves II through XII intact. Motor and sensory grossly within normal limits. Five out of 5 muscle strength in all muscle groups. Normal speech with intermittent slurred speech. No facial droop. Resolved tremors Hospital Course 82-year-old female with a history of CAD, hyperlipidemia, hypertension was brought in by family to the emergency room for difficulty speaking. TIA, acute. Stable. Stroke workup unremarkable. Continue aspirin and Lipitor. Risk factor modification. Physical therapy recommending home health care Toxic encephalopathy from morphine sulfate and Ativan. Resolved mild tremors. TSH unremarkable. Alcohol use, questionable abuse. Ct CIID protocol, seizure precautions. Thiamine daily Chronic back pain. Stable. Patient was also complaining of neck pain yesterday not today. No cervical spine tenderness Hypertension, chronic. Increased no worse for better control Chronic UTI's. Resume home antibiotics. Repeat urinalysis improved Glucosuria. Fasting glucose 101. Pending A1c Hyperlipidemia, chronic. Resumed home medications Lipitor Thyroid nodules. TSH therapeutic. Outpatient follow-up DVT prophylaxis: SCDs, Lovenox Pt Condition on Discharge: Stable Discharge Disposition: Disch w/ Home Health Serv Discharge Time: > 30 minutes Discharge Instructions DIET: Follow Instructions for: Heart Healthy Diet Activities you can perform: Regular-No Restrictions Follow up Referrals: Neurology - 1 Week PCP Follow-up - 1 Week New Medications: Thiamine (Vitamin B-1) 100 Mg Tab 100 MG PO DAILY for Nutritional Supplement, #30 TAB 0 Refills Changed Medications: Amlodipine (Norvasc) 5 Mg Tab 10 MG PO DAILY for Blood Pressure Management, #60 TAB 0 Refills (Changed from: 5 MG; 30) Continued Medications: Aspirin (Aspirin Low Dose) 81 Mg Chew 81 MG PO DAILY, TAB 0 Refills Atorvastatin (Atorvastatin) 20 Mg Tab 20 MG PO HS for Cholesterol Management, #90 TAB 3 Refills Cilostazol (Cilostazol) 100 Mg Tab 100 MG PO BID for INTERMITTENT CLAUDICATION, #180 TAB 3 Refills Ciprofloxacin (Cipro) 500 Mg Tab 500 MG PO BID for Infection, TAB 0 Refills Metoprolol Tartrate (Metoprolol Tartrate) 25 Mg Tab 25 MG PO BID, #60 TAB 0 Refills Nitrofurantoin Monohydrate Macrocrystals (Macrobid) 100 Mg Cap 100 MG PO BID for Infection for 10 Days, #20 CAP 0 Refills Pantoprazole (Pantoprazole) 40 Mg Tab 40 MG PO DAILY for Reflux, #90 TAB 0 Refills Phil Torre MD Jan 29, 2018 16:58
--- NOTE | 2018-01-31 13:18 | EKG ---
Date Performed: 01/27/2018 Time Performed: 18:01:20 PTAGE: 82 years EKG: Sinus rhythm NORMAL ECG Since the prior tracing, there has been no significant change DOCTOR: Kelvin Baires Interpretating Date/Time 01/31/2018 13:17:54
--- NOTE | 2018-01-31 13:55 | EKG ---
Date Performed: 01/27/2018 Time Performed: 16:23:19 PTAGE: 82 years EKG: Sinus rhythm POSSIBLE LEFT ATRIAL ENLARGEMENT PREVIOUS TRACING : 01/15/2018 18.08 Since the prior tracing, there has been no significan t change DOCTOR: Kelvin Baires Interpretating Date/Time 01/31/2018 13:54:25
== END 2018-01-29 18:06 | disposition home or self-care (01) ==
LOC: NEPC 15:05 → NEDA 17:24 → NEPGCP 18:57
PROVIDERS: ADMIT Internal Medicine; ATTEND Internal Medicine
DX: G45.9 Transient cerebral ischemic attack, unspecified (principal); I10 Essential (primary) hypertension; N39.0 Urinary tract infection, site not specified; G93.40 Encephalopathy, unspecified; I25.10 Atherosclerotic heart disease of native coronary artery without angina pectoris; E78.5 Hyperlipidemia, unspecified; E04.2 Nontoxic multinodular goiter; M54.9 Dorsalgia, unspecified; G89.29 Other chronic pain; K21.9 Gastro-esophageal reflux disease without esophagitis; Y90.1 Blood alcohol level of 20-39 mg/100 ml; Z79.82 Long term (current) use of aspirin; Z86.73 Personal history of transient ischemic attack (TIA), and cerebral infarction without residual deficits; Z88.5 Allergy status to narcotic agent; Z90.710 Acquired absence of both cervix and uterus
CPT/HCPCS: 70450; 70496; 70498; 70551; 80048; 80061; 80307; 81001; 84443; 85025; 85610; 85730; 86850; 86900; 86901; 92523; 92526; 92610; 93005; 93306; 95819; 96361; 96365; 96372; 96375; 96376; 97162; 97166; 99285; G0378; G8987; G8988; G8996; G8997; G8998; J1650; J2060; J2270; J3411; J7030; Q9967; 83036

== ENCOUNTER 2018-06-23 06:58 | Observation (INO) ==
[2018-06-23] MEDS ORDERED: Sodium Chlor 0.9% Inj 500 ML IV.SIG ONE (07:10)
--- NOTE | 2018-06-23 07:30 | ED ---
HPI General Chief complaint: Nausea/Vomiting/Diarrhea Stated complaint: N/V Time Seen by Provider: 06/23/18 07:10 Source: patient Mode of arrival: EMS Limitations: no limitations History of Present Illness HPI narrative: Patient is an 83 year old female who comes in complaining of chest pain, abdominal pain, nausea, vomiting, and diarrhea. She says this started last night. She says the diarrhea started first and then the rest of her symptoms. She says she took a Laxative last night that her grandson gave her because she was constipated. She has since had several bowel movements with nausea and vomiting. She says the pain to her chest started just after she started having the bowel movements, before she started vomiting. She says she has pain to the middle of her chest. She says her entire abdomen hurts. She has not had fever or chills. She denies shortness of breath. She says she was sick last week and was prescribed pills by her doctor, these were Macrobid. Severity is moderate. Related Data Home Medications Medication Instructions Recorded Confirmed amlodipine 5 mg PO BID 06/23/18 06/23/18 aspirin 81 mg PO DAILY 06/23/18 06/23/18 atorvastatin [Lipitor] 20 mg PO DAILY 06/23/18 06/23/18 calcium carbonate [Calcium 500] 500 mg PO DAILY 06/23/18 06/23/18 cranberry 400 mg PO DAILY 06/23/18 06/23/18 zksivgehsovs-btw-atvb-FA-vit K 1 tab PO DAILY 06/23/18 06/23/18 [Multi For Her] nitrofurantoin monohyd/m-cryst 100 mg PO BID 06/23/18 06/23/18 [Macrobid] pantoprazole 40 mg PO DAILY 06/23/18 06/23/18 thiamine HCl (vitamin B1) [Vitamin 100 mg PO DAILY 06/23/18 06/23/18 B-1] Allergies Allergy/AdvReac Type Severity Reaction Status Date / Time Fish Containing Products Allergy Severe SOB Verified 06/23/18 07:10 penicillin G Allergy Severe sob Verified 06/23/18 07:10 Sulfa (Sulfonamide Allergy Severe Swelling Verified 06/23/18 07:10 Antibiotics) oxytetracycline Allergy Mild SOB Verified 06/23/18 07:10 morphine AdvReac Intermediate Swelling Verified 06/23/18 07:10 SEAFOOD AdvReac Severe RED ALL Uncoded 08/10/17 07:04 OVER Review of Systems Except as stated in HPI: all other systems reviewed are negative Constitutional Denies chills and Denies fever(s) ENT Denies dizziness Cardiovascular Reports chest pain Respiratory Denies dyspnea Gastrointestinal Reports abdominal pain, Reports diarrhea, Reports nausea and Reports vomiting Musculoskeletal Denies myalgias and Denies arthralgias Integumentary/Breasts Denies change in pigmentation, Denies lesions and Denies rash Neurologic Denies focal weakness PMFSH History History Provided By: Patient Social History Social History Substance History: No History of Abuse Smoking Status: Never smoker How Often Do You Have a Drink Containing Alcohol: Never Recent Travel in [facility] within the Last 8 Weeks: No Recent Out of Country Travel within the Last 8 Weeks: No Exam Narrative Exam Narrative: GENERAL: Awake and alert, in no acute distress. SKIN: Focused skin assessment warm/dry. No rashes or wounds. HEAD: Atraumatic. Normocephalic. EYES: Pupils equal and round. No scleral icterus. ENT: Mucous membranes pink and moist. NECK: Trachea midline. No JVD. CARDIOVASCULAR: Regular rate and rhythm. No murmur appreciated. RESPIRATORY: No accessory muscle use. Clear to auscultation. Breath sounds equal bilaterally. GASTROINTESTINAL: Abdomen soft, nondistended. Diffusely tender to palpation. No rebound or guarding. MUSCULOSKELETAL: No obvious deformities. No clubbing. No cyanosis. No edema. NEUROLOGICAL: Awake and alert. No obvious cranial nerve deficits. Motor grossly within normal limits. Normal speech. PSYCHIATRIC: Appropriate mood and affect; insight and judgment normal. Course Hospital Course: IV established, labs sent. Patient given IV fluids, Compazine. CT abdomen pelvis ordered. Chest x-ray ordered. Reevaluation(s) Reevaluation #1: Patient informed of her results. She reports she is starting to feel better. Time: 09:30 Initial Documented Vital Signs Temperature 97.7 F 06/23/18 07:10 Pulse Rate 85 06/23/18 07:10 Respiratory Rate 20 06/23/18 07:10 Blood Pressure 179/71 H 06/23/18 07:10 Pulse Oximetry 97 06/23/18 07:10 Last Documented Vital Signs Temperature 97.7 F 06/23/18 07:10 Pulse Rate 82 06/23/18 09:09 Respiratory Rate 18 06/23/18 09:09 Blood Pressure 153/89 H 06/23/18 09:09 Pulse Oximetry 97 06/23/18 09:09 Medical Decision Making MDM Narrative Medical decision making narrative: Patient is an 83-year-old female who comes in complaining of chest pain, abdominal pain, nausea, vomiting, diarrhea. Exam shows diffuse abdominal tenderness to palpation. IV established, labs sent. Labs concerning for a white blood cell count of 17 with a left shift. CT of the abdomen and pelvis performed shows stool in the colon, no acute findings. Cannot exclude colitis. Urinalysis is positive for white blood cells and bacteria. Patient given a dose of Cipro. Given aspirin for her chest pain. Given IV fluids and Compazine with improvement of her symptoms. Patient to be admitted for continued UTI as well as chest pain rule out. Differential Diagnosis Differential Diagnosis: Colitis versus obstruction versus UTI versus ACS Medical Records Medical records reviewed: Yes I reviewed the patient's medical records. Lab Data Lab results reviewed: Yes I reviewed the patient's lab results. Result diagrams: 06/23/18 07:35 06/23/18 07:35 Lab Results 06/23/18 06/23/18 06/23/18 Range/Units 07:35 07:35 07:35 CBC w Diff Auto diff final WBC 17.0 H (4.0-11.0) th/mm3 RBC 4.97 (4.00-5.30) mil/mm3 Hgb 15.3 (11.6-15.3) gm/dL Hct 45.2 (35.0-46.0) % MCV 90.9 (80.0-100.0) fL MCH 30.7 (27.0-34.0) pg MCHC 33.8 (32.0-36.0) % RDW 11.7 (11.6-17.2) % Plt Count 482 H (150-450) th/mm3 MPV 6.8 L (7.0-11.0) fL Neut % (Auto) 87.3 H (16.0-70.0) % Lymph % (Auto) 9.6 (9.0-44.0) % Coffey % (Auto) 2.2 (0.0-8.0) % Eos % (Auto) 0.4 (0.0-4.0) % Baso % (Auto) 0.5 (0.0-2.0) % Neut # (Auto) 14.8 H (1.8-7.7) th/mm3 Lymph # (Auto) 1.6 (1.0-4.8) th/mm3 Coffey # (Auto) 0.4 (0.0-0.9) th/mm3 Eos # (Auto) 0.1 (0.0-0.4) th/mm3 Baso # (Auto) 0.1 (0.0-0.2) th/mm3 WBC Differential . Differential Comment . PT 10.4 (9.8-11.6) sec INR 1.0 Ratio APTT 27.5 (24.3-30.1) sec Sodium 131 L (136-145) meq/L Potassium 3.6 (3.5-5.1) meq/L Chloride 97 L (98-107) meq/L Carbon Dioxide 22.8 (21.0-32.0) meq/L Anion Gap 11 (5-15) meq/L BUN 11 (7-18) mg/dL Creatinine 0.83 (0.50-1.00) mg/dL Estimated GFR 66 L (>89) mL/min Random Glucose 137 H (74-106) mg/dL Lactic Acid (0.4-2.0) mmol/L Calcium 9.5 (8.5-10.1) mg/dL Total Bilirubin 0.4 (0.2-1.0) mg/dL AST 20 (15-37) U/L ALT 22 (10-53) U/L Alkaline Phosphatase 120 H (45-117) U/L Total Creatine Kinase 44 (26-192) U/L Troponin I Less than 0.02 L (0.02-0.05) ng/mL Total Protein 7.6 (6.4-8.2) g/dL Albumin 3.6 (3.4-5.0) g/dL Lipase 141 (73-393) U/L Ur Collection Type Urine Color (Yellw/Straw) Urine Clarity (Clear) Urine pH (5.0-8.5) Ur Specific [place] (1.002-1.035) Urine Protein (Neg-Trace) mg/dL Urine Glucose (UA) (Negative) mg/dL Urine Ketones (Negative) mg/dL Urine Occult Blood (Negative) Urine Nitrate (Negative) Urine Bilirubin (Negative) Urine Urobilinogen (Less than 2) mg/dL Ur Leukocyte Esterase (Negative) Urine WBC (0-5) /hpf Ur Squamous Epith Cells (0-5) /hpf Ur Transition Epith Cell (None) /hpf Amorphous Sediment (None) /hpf Urine Bacteria (None) /hpf Micro UA Comment Urine Culture Comments Urine Collection Time hours 06/23/18 06/23/18 Range/Units 07:35 08:20 CBC w Diff WBC (4.0-11.0) th/mm3 RBC (4.00-5.30) mil/mm3 Hgb (11.6-15.3) gm/dL Hct (35.0-46.0) % MCV (80.0-100.0) fL MCH (27.0-34.0) pg MCHC (32.0-36.0) % RDW (11.6-17.2) % Plt Count (150-450) th/mm3 MPV (7.0-11.0) fL Neut % (Auto) (16.0-70.0) % Lymph % (Auto) (9.0-44.0) % Coffey % (Auto) (0.0-8.0) % Eos % (Auto) (0.0-4.0) % Baso % (Auto) (0.0-2.0) % Neut # (Auto) (1.8-7.7) th/mm3 Lymph # (Auto) (1.0-4.8) th/mm3 Coffey # (Auto) (0.0-0.9) th/mm3 Eos # (Auto) (0.0-0.4) th/mm3 Baso # (Auto) (0.0-0.2) th/mm3 WBC Differential Differential Comment PT (9.8-11.6) sec INR Ratio APTT (24.3-30.1) sec Sodium (136-145) meq/L Potassium (3.5-5.1) meq/L Chloride (98-107) meq/L Carbon Dioxide (21.0-32.0) meq/L Anion Gap (5-15) meq/L BUN (7-18) mg/dL Creatinine (0.50-1.00) mg/dL Estimated GFR (>89) mL/min Random Glucose (74-106) mg/dL Lactic Acid 1.1 (0.4-2.0) mmol/L Calcium (8.5-10.1) mg/dL Total Bilirubin (0.2-1.0) mg/dL AST (15-37) U/L ALT (10-53) U/L Alkaline Phosphatase (45-117) U/L Total Creatine Kinase (26-192) U/L Troponin I (0.02-0.05) ng/mL Total Protein (6.4-8.2) g/dL Albumin (3.4-5.0) g/dL Lipase (73-393) U/L Ur Collection Type Clean catch Urine Color Yellow (Yellw/Straw) Urine Clarity Clear (Clear) Urine pH 8.0 (5.0-8.5) Ur Specific [place] 1.010 (1.002-1.035) Urine Protein Negative (Neg-Trace) mg/dL Urine Glucose (UA) Negative (Negative) mg/dL Urine Ketones 15 H (Negative) mg/dL Urine Occult Blood Negative (Negative) Urine Nitrate Negative (Negative) Urine Bilirubin Negative (Negative) Urine Urobilinogen 0.2 (Less than 2) mg/dL Ur Leukocyte Esterase Trace H (Negative) Urine WBC 6-8 H (0-5) /hpf Ur Squamous Epith Cells Greater than 10 H (0-5) /hpf Ur Transition Epith Cell 1-5 H (None) /hpf Amorphous Sediment Few H (None) /hpf Urine Bacteria Moderate H (None) /hpf Micro UA Comment Culture indicated Urine Culture Comments Culture indicated Urine Collection Time 820 hours Imaging Data Radiologist's impression: Abdomen/Pelvis CT 06/23/18 07:10 CONCLUSION: Colonic diverticulosis and colon is not fully distended with areas of spasm particularly in sigmoid colon. Possibility of colitis particularly in the descending colon is difficult to exclude. Chest X-Ray 06/23/18 07:19 CONCLUSION: No acute cardiopulmonary disease. ECG Data EKG Prior to Arrival: No Attestation: I personally reviewed and interpreted this ECG as follows: Interpretation: ECG shows normal sinus rhythm at a rate of 77, no ST elevation or depression, normal intervals. Discharge Plan Discharge Disposition Patient Disposition: 30 Still Patient Discharge Condition Condition: Stable Discharge Details Diagnosis: Acute UTI, Colitis, Chest pain Physicians Team ED Provider: Lisset Carbajal Primary Care Provider: UNKNOWN, Rxs /Orders / Referrals /Forms Prescriptions: No Action atorvastatin [Lipitor] 20 mg Tablet 20 mg PO DAILY RF: 0 thiamine HCl (vitamin B1) [Vitamin B-1] 100 mg Tablet 100 mg PO DAILY RF: 0 calcium carbonate [Calcium 500] 500 mg calcium (1,250 mg) Tablet 500 mg PO DAILY RF: 0 pantoprazole 40 mg Tablet,Delayed Release (Dr/Ec) 40 mg PO DAILY RF: 0 cranberry 400 mg Capsule 400 mg PO DAILY RF: 0 aspirin 81 mg Tablet,Chewable 81 mg PO DAILY RF: 0 nitrofurantoin monohyd/m-cryst [Macrobid] 100 mg Capsule 100 mg PO BID RF: 0 xrvndwqjjwcw-fev-wxmg-FA-vit K [Multi For Her] 18 mg iron-600 mcg-40 mcg Capsule 1 tab PO DAILY RF: 0 amlodipine 5 mg PO BID RF: 0 Discharge Interventions Interventions: Vital Signs Last Done: 06/23/18 09:09 Status ED Status: With Doctor
--- NOTE | 2018-06-23 07:41 | XR ---
EXAM DATE: 06/23/2018 7:33 AM EDT AGE/SEX: 83 years / Female INDICATIONS: Chest pain, nausea, vomiting CLINICAL DATA: This is the patient's initial encounter. Patient reports that signs and symptoms have been present for 1 day and indicates a pain score of 8/10. MEDICAL/SURGICAL HISTORY: . Hypertension. Renal insufficiency. . Fusion, lumbar. Tonsillecto my. Hysterectomy. Appendectomy COMPARISON: [facility], CHEST SINGLE AP, 11/20/2015. . FINDINGS: The lungs are clear without infiltrate, nodule, or mass. There is no appreciable pleural effusion for technique. Heart and mediastinum are unremarkable. Chronic vascular atherosclerotic ca lcifications are seen involving the aorta. CONCLUSION: No acute cardiopulmonary disease. Electronically signed by: Vinny Seo MD 06/23/2018 7:40 AM EDT
[2018-06-23 07:45] LABS: Baso # (Auto) 0.1 th/mm3 (0.0-0.2); Baso % (Auto) 0.5 % (0.0-2.0); Eos # (Auto) 0.1 th/mm3 (0.0-0.4); Eos % (Auto) 0.4 % (0.0-4.0); Hematocrit 45.2 % (35.0-46.0); Hemoglobin 15.3 gm/dL (11.6-15.3); Lymph # (Auto) 1.6 th/mm3 (1.0-4.8); Lymph % (Auto) 9.6 % (9.0-44.0); Mean Corpuscular HGB Conc 33.8 % (32.0-36.0); Mean Corpuscular Hemoglobin 30.7 pg (27.0-34.0); Mean Corpuscular Volume 90.9 fL (80.0-100.0); Mean Platelet Volume 6.8 fL (7.0-11.0); Mono # (Auto) 0.4 th/mm3 (0.0-0.9); Mono % (Auto) 2.2 % (0.0-8.0); Neut # (Auto) 14.8 th/mm3 (1.8-7.7); Neut % (Auto) 87.3 % (16.0-70.0); Platelet Count 482 th/mm3 (150-450); Red Blood Count 4.97 mil/mm3 (4.00-5.30); Red Cell Distribution Width 11.7 % (11.6-17.2)
[2018-06-23 07:57] LABS: Chloride 97 meq/L (98-107); Potassium 3.6 meq/L (3.5-5.1); Sodium 131 meq/L (136-145)
[2018-06-23 08:00] LABS: Calcium 9.5 mg/dL (8.5-10.1)
[2018-06-23 08:01] LABS: Activated Partial Thrombo Time 27.5 sec (24.3-30.1); Albumin 3.6 g/dL (3.4-5.0); Anion Gap 11 meq/L (5-15); Blood Urea Nitrogen 11 mg/dL (7-18); Carbon Dioxide 22.8 meq/L (21.0-32.0); Glucose,Random 137 mg/dL (74-106); Lipase 141 U/L (73-393); Prothrombin Time 10.4 sec (9.8-11.6)
[2018-06-23 08:04] LABS: Alanine Aminotransferase 22 U/L (10-53); Aspartate Aminotransferase 20 U/L (15-37); Glomerular Filtration Rate 66 mL/min (>89)
[2018-06-23 08:05] LABS: Total Protein 7.6 g/dL (6.4-8.2)
[2018-06-23 08:07] LABS: Alkaline Phosphatase 120 U/L (45-117)
[2018-06-23 08:13] LABS: Creatine Kinase 44 U/L (26-192)
[2018-06-23 08:32] LABS: Bilirubin,Urine Negative (Negative); Clarity,Urine Clear (Clear); Color,Urine Yellow (Yellw/Straw); Glucose,Urine (UA) Negative (Negative); Leukocyte Esterase,Urine Trace (Negative); Nitrite,Urine Negative (Negative); Urobilinogen,Urine 0.2 mg/dL (Less than 2)
[2018-06-23 08:33] LABS: Collection Time,Urine 820 hours
[2018-06-23 08:38] LABS: Amorphous Sediment,Urine Few /hpf; Bacteria,Urine Moderate /hpf; Squamous Epithelial Cell,Urine Greater than 10 /hpf (0-5)
--- NOTE | 2018-06-23 08:49 | CT ---
EXAM DATE: 06/23/2018 8:40 AM EDT AGE/SEX: 83 years / Female INDICATIONS: Upper quadrant with nausea and vomiting. CLINICAL DATA: This is the patient's initial encounter. Patient reports that signs and symptoms have been present for 1 day and indicates a pain score of 7/10. MEDICAL/SURGICAL HISTORY: Hypertension. Appendectomy. Hysterectomy. Fusion, lumbar. ORAL CONTRAST: No oral contrast ingested. RADIATION DOSE: 5.53 CTDI (mGy) COMPARISON: [facility] [place], CT ABDOMEN & PELVIS W/O CONTRAST, 08/16/2015. . TECHNIQUE: Multiple contiguous axial images were obtained through the abdomen and pelvis following b olus infusion of 75 ml Omnipaque 350 (iohexol) nonionic water-soluble contrast as a single exam dos e. No oral contrast ingested. Using automated exposure control and adjustment of the mA and/or kV ac cording to patient size, radiation dose was kept as low as reasonably achievable to obtain optimal di agnostic quality images. DICOM format image data is available electronically for review and comparis on. FINDINGS: Abdomen CT: The liver, spleen, pancreas, adrenals are unremarkable. There are calcified granulomas in the spleen. There are simple cysts in both kidneys the largest measures almost 1 cm on the right. There are athe rosclerotic calcifications involving the aorta and iliac arteries chronic in nature. There is no evid ence for any appreciable pathological adenopathy, free fluid, or bowel obstruction. There is evidenc e for prior granulomatous exposure with calcified granuloma right lower lobe. Pelvic CT: There is no evidence for mass, abscess formation, or any significant adenopathy within the pelvis. T here are old healed fractures of left symphysis pubis and pubic rami. There are numerous diverticuli within the colon mainly the sigmoid colon without signs of diverticulitis for technique and there is spasm involving the sigmoid colon. There is moderate amount of stool in the colon. The colon appear s decompressed throughout difficult to accurately characterize, however no definite mass or signs of diverticulitis at this time. Possibility of colitis is difficult to exclude particularly involving de scending colon. Lumbar scoliosis is seen convexity towards the left with superimposed degenerative ch lainey at multiple levels. CONCLUSION: Colonic diverticulosis and colon is not fully distended with areas of spasm particularly in sigmoid colon. Possibility of colitis particularly in the descending colon is difficult to exclude . Electronically signed by: Vinny Seo MD 06/23/2018 8:48 AM EDT
[2018-06-23] MEDS ORDERED: Ciprofloxacin 400 MG/200 ML 400 MG/200 ML PIGGYBACK IV.SIG ONE (09:16)
[2018-06-23] MEDS ORDERED: Temazepam 15 MG Capsule PO PRN (10:13)
[2018-06-23] MEDS ORDERED: Bisacodyl 10 MG Supp RECTAL PRN (10:13)
--- NOTE | 2018-06-23 10:29 | P.HPIM ---
History of Present Illness Primary Care Physician: UNKNOWN Chief Complaint: Nausea vomiting diarrhea History of Present Illness: Patient is a 83-year-old female with a history of recurrent urinary tract infections and hypertension who comes to the emergency room complaining of 1 day of abdominal discomfort which she describes abdominal pain. She says in the epigastrium and she had some bloating in her belly with associated constipation. She noted that prior to that she felt well but she took some laxative for constipation and noted that the symptoms occurred after that. She had significant diarrhea. Recently she had a upper respiratory tract infection was prescribed ciprofloxacin. She says she has some chills and her granddaughter was sick and coughing. She reports a history of recurrent urinary tract infection and takes nitrofurantoin and cranberry juice regularly. Here she has had no fever but has a leukocytosis and feels poorly. She has not had any melena or hematochezia or hematemesis. Normally she feels well. She does take Protonix for chronic GERD. Patient is recommended for further observation and treatment. On my review of her x-ray there is no acute cardiopulmonary disease and a CT abdomen pelvis cannot rule out colitis. Given her recent antibiotics and abdominal symptoms is prudent to follow the patient observation status here. - Diagnosis (1) Abdominal pain (2) Colitis (3) HTN (hypertension) (4) GERD (gastroesophageal reflux disease) (5) Abnormal urine findings Review of Systems All other systems reviewed negative except as stated in HPI Respiratory: Reports cough, Reports shortness of breath Gastrointestinal: Reports abdominal pain, Reports constipation PMFSH - History History Provided By: Patient - Medical History Medical History: Medical History (Last Updated 06/23/18 @ 10:23 by Tonia Tanner MD) GERD (gastroesophageal reflux disease) HTN (hypertension) History of hysterectomy Hyperlipidemia Recurrent UTI - Surgical History Surgical History: Surgical History (Last Updated 06/23/18 @ 10:23 by Tonia Tanner MD) History of tonsillectomy and adenoidectomy - Tobacco History Smoking Status: Never smoker - Alcohol History How Often Do You Have a Drink Containing Alcohol: Never - Substance Use History Substance History: No History of Abuse - Travel History Recent Travel in the [place] Within the Last 8 Weeks: No Recent Travel Out of the Country Within the Last 8 Weeks: No - Immunization History Tetanus Immunization: Unsure Hx Influenza Vaccine This Season: Yes Medications and Allergies Active Medications: Active Medications Ciprofloxacin/Dextrose (Cipro 400 Mg/200 Ml Inj) 400 mg in 200 mls @ 200 mls/ hr IV.SIG ONCE ONE Stop: 06/23/18 10:15 Last Admin: 06/23/18 09:45 Dose: 200 mls/hr Sodium Chloride (Ns Flush) 2 ml IV.FLUSH PRN PRN PRN Reason: FLUSH AFTER USING IV ACCESS Allergies Allergy/AdvReac Type Severity Reaction Status Date / Time Fish Containing Products Allergy Severe SOB Verified 06/23/18 07:10 penicillin G Allergy Severe sob Verified 06/23/18 07:10 Sulfa (Sulfonamide Allergy Severe Swelling Verified 06/23/18 07:10 Antibiotics) oxytetracycline Allergy Mild SOB Verified 06/23/18 07:10 morphine AdvReac Intermediate Swelling Verified 06/23/18 07:10 SEAFOOD AdvReac Severe RED ALL Uncoded 08/10/17 07:04 OVER Home Medications Medication Instructions Recorded Confirmed Type amlodipine 5 mg PO BID 06/23/18 06/23/18 History aspirin 81 mg PO DAILY 06/23/18 06/23/18 History atorvastatin [Lipitor] 20 mg PO DAILY 06/23/18 06/23/18 History calcium carbonate [Calcium 500] 500 mg PO DAILY 06/23/18 06/23/18 History cranberry 400 mg PO DAILY 06/23/18 06/23/18 History uopejpuiszoa-jvr-xyms-FA-vit K 1 tab PO DAILY 06/23/18 06/23/18 History [Multi For Her] nitrofurantoin monohyd/m-cryst 100 mg PO BID 06/23/18 06/23/18 History [Macrobid] pantoprazole 40 mg PO DAILY 06/23/18 06/23/18 History thiamine HCl (vitamin B1) [Vitamin 100 mg PO DAILY 06/23/18 06/23/18 History B-1] Exam Vital signs: Vital Signs 06/23/18 07:10 06/23/18 07:45 06/23/18 08:15 Temperature 97.7 F Pulse Rate 85 84 Respiratory Rate 20 18 Blood Pressure 179/71 H 178/86 H Pulse Oximetry 97 97 97 06/23/18 09:09 06/23/18 09:52 Temperature Pulse Rate 82 77 Respiratory Rate 18 18 Blood Pressure 153/89 H 125/56 L Pulse Oximetry 97 97 Intake & Output 06/22/18 06/23/18 06/23/18 18:59 06:59 18:59 Weight 52.163 kg Narrative: GENERAL: Patient calm resting and without complaints SKIN: Right lower extremity tattoo with some ecchymosis on the carmichael, otherwise warm and dry. No rashes or ecchymotic injuries EYES: Pupils equal and round. No scleral icterus. No injection or drainage. ENT: External ear exam normal. No acute nasal bleeding or discharge. Mucous membranes pink and moist. CARDIOVASCULAR: Regular rate and rhythm. No murmurs gallops or rubs appreciated RESPIRATORY: Good air flow and effort without accessory muscle use. Clear to auscultation. Breath sounds equal bilaterally. GASTROINTESTINAL: Abdomen soft, non-tender, nondistended. Hepatic and splenic margins not palpable. MUSCULOSKELETAL: Extremities without clubbing, cyanosis, or edema. No obvious deformities. NEUROLOGICAL: Awake and alert. No obvious cranial nerve deficits. Motor grossly within normal limits. Five out of 5 muscle strength in the arms and legs. Normal speech. Results - Labs CBC & Chem 7: 06/23/18 07:35 06/23/18 07:35 Labs: Short CBC 06/23/18 Range/Units 07:35 WBC 17.0 H (4.0-11.0) th/mm3 Hgb 15.3 (11.6-15.3) gm/dL Hct 45.2 (35.0-46.0) % Plt Count 482 H (150-450) th/mm3 BMP 06/23/18 07:35 Sodium 131 L Potassium 3.6 Chloride 97 L Carbon Dioxide 22.8 BUN 11 Creatinine 0.83 Calcium 9.5 Cardiac Enzymes 06/23/18 Range/Units 07:35 Total Creatine Kinase 44 (26-192) U/L Troponin I Less than 0.02 L (0.02-0.05) ng/mL Liver Function 06/23/18 Range/Units 07:35 Total Bilirubin 0.4 (0.2-1.0) mg/dL AST 20 (15-37) U/L ALT 22 (10-53) U/L Alkaline Phosphatase 120 H (45-117) U/L Albumin 3.6 (3.4-5.0) g/dL Urine 06/23/18 Range/Units 08:20 Urine Color Yellow (Yellw/Straw) Urine Clarity Clear (Clear) Urine pH 8.0 (5.0-8.5) Ur Specific [place] 1.010 (1.002-1.035) Urine Protein Negative (Neg-Trace) mg/dL Urine Glucose (UA) Negative (Negative) mg/dL - Imaging Impressions Abdomen/Pelvis CT 06/23/18 07:10 CONCLUSION: Colonic diverticulosis and colon is not fully distended with areas of spasm particularly in sigmoid colon. Possibility of colitis particularly in the descending colon is difficult to exclude. Chest X-Ray 06/23/18 07:19 CONCLUSION: No acute cardiopulmonary disease. Caprini VTE Risk Assessment Caprini VTE Risk Assessment: Moderate/High Risk (score >= 2) Caprini Risk Assessment Model: Point Value = 1 Point Value = 2 Point Value = 3 Point Value = 5 Age 41-60 Minor surgery BMI > 25 kg/m2 Swollen legs Varicose veins or History of unexplained or recurrent spontaneous Oral contraceptives or hormone replacement Sepsis (< 1 month) Serious lung disease, including pneumonia (< 1 month) Abnormal pulmonary function Acute myocardial infarction Congestive heart failure (< 1 month) History of inflammatory bowel disease Medical patient at bed rest Age 61-74 Arthroscopic surgery Major open surgery (> 45 min) Laparoscopic surgery (> 45 min) Malignancy Confined to bed (> 72 hours) Immobilizing plaster cast Central venous access Age >= 75 History of VTE Family history of VTE Factor V Leiden Prothrombin [id number] Lupus anticoagulant Anticardiolipin antibodies Elevated serum homocysteine Heparin-induced thrombocytopenia Other congenital or acquired thrombophilia Stroke (< 1 month) Elective arthroplasty Hip, pelvis, or leg fracture Acute spinal cord injury (< 1 month) Prophylaxis Regimen: Total Risk Factor Score Risk Level Prophylaxis Regimen 0-1 Low Early ambulation 2 Moderate Order ONE of the following: *Sequential Compression Device (SCD) *Heparin 5000 units SQ BID 3-4 Higher Order ONE of the following medications: *Heparin 5000 units SQ TID *Enoxaparin/Lovenox 40 mg SQ daily (WT < 150 kg, CrCl > 30 mL/min) *Enoxaparin/Lovenox 30 mg SQ daily (WT < 150 kg, CrCl > 10-29 mL/min) *Enoxaparin/Lovenox 30 mg SQ BID (WT < 150 kg, CrCl > 30 mL/min) AND/OR *Sequential Compression Device (SCD) 5 or more Highest Order ONE of the following medications: *Heparin 5000 units SQ TID (Preferred with Epidurals) *Enoxaparin/Lovenox 40 mg SQ daily (WT < 150 kg, CrCl > 30 mL/min) *Enoxaparin/Lovenox 30 mg SQ daily (WT < 150 kg, CrCl > 10-29 mL/min) *Enoxaparin/Lovenox 30 mg SQ BID (WT < 150 kg, CrCl > 30 mL/min) AND *Sequential Compression Device (SCD) Assessment and Plan - Assessment (1) Abdominal pain Code(s): R10.9 - Unspecified abdominal pain Status: Acute Plan: Improved Continue with empiric therapy for C. difficile and follow-up (2) Colitis Code(s): K52.9 - Noninfective gastroenteritis and colitis, unspecified Status : Acute Plan: With recent ciprofloxacin and abdominal discomfort. CT abdomen pelvis abnormal , patient with leukocytosis and chills Empiric Follow-up C. difficile (3) HTN (hypertension) Code(s): I10 - Essential (primary) hypertension Status: Acute Plan: Resume home medications, controlled (4) GERD (gastroesophageal reflux disease) Code(s): K21.9 - Gastro-esophageal reflux disease without esophagitis Status: Acute Plan: Continue Protonix (5) Abnormal urine findings Code(s): R82.90 - Unspecified abnormal findings in urine Status: Acute Plan: Follow-up cultures Recently started on Cipro and continues on nitrofurantoin and takes cranberry juice for recurrent urinary tract infections
[2018-06-23] MEDS: amLODIPine 5 MG Tablet PO SCH ×2 (13:22→20:37)
--- NOTE | 2018-06-23 14:32 | ECG ---
Date Performed: 06/23/2018 Time Performed: 07:08:19 PTAGE: 83 years EKG: Sinus rhythm WITH SINUS ARRHYTHMIA POSSIBLE LEFT ATRIAL ENLARGEMENT BORDERLINE ECG Since PREVIOUS TRACING , no significant change noted PREVIOUS TRACIN01/27/2018 18.01 DOCTOR: Michael Koehler Interpretating Date/Time 06/23/2018 14:30:46
[2018-06-24 06:27] LABS: Baso # (Auto) 0.1 th/mm3 (0.0-0.2); Baso % (Auto) 0.5 % (0.0-2.0); Eos # (Auto) 0.2 th/mm3 (0.0-0.4); Eos % (Auto) 1.6 % (0.0-4.0); Hematocrit 39.9 % (35.0-46.0); Hemoglobin 13.9 gm/dL (11.6-15.3); Lymph # (Auto) 2.5 th/mm3 (1.0-4.8); Lymph % (Auto) 22.7 % (9.0-44.0); Mean Corpuscular HGB Conc 34.8 % (32.0-36.0); Mean Corpuscular Hemoglobin 31.4 pg (27.0-34.0); Mean Corpuscular Volume 90.2 fL (80.0-100.0); Mean Platelet Volume 6.9 fL (7.0-11.0); Mono # (Auto) 0.5 th/mm3 (0.0-0.9); Mono % (Auto) 4.7 % (0.0-8.0); Neut # (Auto) 7.6 th/mm3 (1.8-7.7); Neut % (Auto) 70.5 % (16.0-70.0); Platelet Count 358 th/mm3 (150-450); Red Blood Count 4.42 mil/mm3 (4.00-5.30); Red Cell Distribution Width 12.3 % (11.6-17.2); White Blood Count 10.9 th/mm3 (4.0-11.0)
[2018-06-24 06:36] LABS: Calcium 9.1 mg/dL (8.5-10.1); Carbon Dioxide 25.4 meq/L (21.0-32.0); Potassium 3.2 meq/L (3.5-5.1)
[2018-06-24 06:59] LABS: Platelet Estimate Normal (Normal); Platelet Morphology Normal (Normal)
[2018-06-24 08:33] VITALS: RESP 18
[2018-06-24] MEDS ORDERED: CRANBERRY 400 MG PO SCH (09:00)
[2018-06-24] MEDS: amLODIPine 5 MG Tablet PO SCH (09:45)
--- NOTE | 2018-06-24 11:06 | P.PNIM ---
Subjective Interval history: Patient seen and evaluated in follow-up for diarrhea and possible colitis. Doing better. Abdominal discomfort is improved. No further diarrhea. Unable to collect C. difficile and stool stopped. Discharge plan discussed with patient is agreeable. Physical Exam Vital signs: Vital Signs 06/23/18 11:24 06/23/18 14:30 06/23/18 15:04 Temperature 97.5 F L 96.9 F L Pulse Rate 79 66 Respiratory Rate 20 16 20 Blood Pressure 163/76 H 139/63 Pulse Oximetry 92 L 92 L 06/23/18 20:00 06/24/18 00:00 06/24/18 08:00 Temperature 97.1 F L 97.0 F L 97.2 F L Pulse Rate 67 68 68 Respiratory Rate 16 16 18 Blood Pressure 124/61 121/68 131/63 Pulse Oximetry 94 L 94 L 95 Intake & Output 06/23/18 06/24/18 06/24/18 18:59 06:59 18:59 Intake Total 1000 / 1000 500 / 500 Balance 1000 / 1000 500 / 500 Weight 50.6 kg 50.8 kg Intake: IV 200 / 200 500 / 500 Cipro 400 MG/200 ML Inj 400 mg 200 / 200 In 200 ml @ 200 mls/hr IV.SIG ONCE ONE Rx#:[id number] Oral 800 / 800 Other: # Voids 4 2 Date of Last Bowel Movement 06/23/18 Weight On Admission 50.6 kg Narrative: GENERAL: Well-nourished, well-developed patient. SKIN: Warm and dry. HEAD: Normocephalic. EYES: No scleral icterus. No injection or drainage. NECK: Supple, trachea midline. No JVD or lymphadenopathy. CARDIOVASCULAR: Regular rate and rhythm without murmurs, gallops, or rubs. RESPIRATORY: Breath sounds equal bilaterally. No accessory muscle use. GASTROINTESTINAL: Abdomen soft, non-tender, nondistended. MUSCULOSKELETAL: No cyanosis, or edema. BACK: Nontender without obvious deformity. No CVA tenderness. NEUROLOGICAL: Awake and alert. Cranial nerves II through XII intact. Motor and sensory grossly within normal limits. Five out of 5 muscle strength in all muscle groups. Normal speech. Results - Labs CBC & Chem 7: 06/24/18 06:10 06/24/18 06:10 Laboratory Results - last 24 hr 06/23/18 06/24/18 06/24/18 12:47 06:10 06:10 CBC w Diff Slide review pending WBC 10.9 RBC 4.42 Hgb 13.9 Hct 39.9 MCV 90.2 MCH 31.4 MCHC 34.8 RDW 12.3 Plt Count 358 MPV 6.9 L Neut % (Auto) 70.5 H Lymph % (Auto) 22.7 [place] % (Auto) 4.7 Eos % (Auto) 1.6 Baso % (Auto) 0.5 Neut # (Auto) 7.6 Lymph # (Auto) 2.5 [place] # (Auto) 0.5 Eos # (Auto) 0.2 Baso # (Auto) 0.1 WBC Differential . Diff Scan Auto diff confirmed Differential Comment . Platelet Estimate Normal Platelet Morphology Normal Sodium 141 D Potassium 3.2 L Chloride 107 D Carbon Dioxide 25.4 Anion Gap 9 BUN 7 Creatinine 0.77 Estimated GFR 72 L Random Glucose 100 Calcium 9.1 Troponin I Less than 0.02 L Microbiology 06/23/18 08:20 Clean Catch Urine Urine Culture - Final 50-100,000 cfu/mL mixed gram positive jose alfredo (probable contaminants) Assessment and Plan - Assessment (1) Abdominal pain Code(s): R10.9 - Unspecified abdominal pain Status: Acute Plan: Resolved Continue with Alinia for possible colitis (2) Colitis Code(s): K52.9 - Noninfective gastroenteritis and colitis, unspecified Status : Acute Plan: Continue Alinia Outpatient follow-up (3) HTN (hypertension) Code(s): I10 - Essential (primary) hypertension Status: Acute Plan: Resume home medications, controlled (4) GERD (gastroesophageal reflux disease) Code(s): K21.9 - Gastro-esophageal reflux disease without esophagitis Status: Acute Plan: Continue Protonix (5) Abnormal urine findings Code(s): R82.90 - Unspecified abnormal findings in urine Status: Acute Plan: No evidence of UTI Continue with cranberry juice DC antibiotic - Plan Discharge Planning: Discharge home Diet regular Activities unrestricted
[2018-06-24 12:44] VITALS: TEMP 97.8
[2018-06-24 15:50] VITALS: BP 126/62; PULSE 77; O2SAT 97
== END 2018-06-24 20:01 | disposition home or self-care (01) ==
LOC: PHED 06:58 → PHEDA 06:58 → PH3 06:58 → PHEDA 11:06 → PH3 11:07
PROVIDERS: ADMIT Hospitalist; ATTEND Hospitalist
DX: E78.5 Hyperlipidemia, unspecified; K52.9 Noninfective gastroenteritis and colitis, unspecified; Z88.2 Allergy status to sulfonamides; R10.9 Unspecified abdominal pain; I10 Essential (primary) hypertension; K21.9 Gastro-esophageal reflux disease without esophagitis; R94.31 Abnormal electrocardiogram [ECG] [EKG]; Z88.0 Allergy status to penicillin; K59.00 Constipation, unspecified; Z79.82 Long term (current) use of aspirin; Z90.710 Acquired absence of both cervix and uterus; R82.90 Unspecified abnormal findings in urine; Z87.440 Personal history of urinary (tract) infections

== ENCOUNTER 2018-10-08 21:53 | Observation (INO) ==
--- NOTE | 2018-10-08 22:09 | CT ---
EXAM DATE: 10/08/2018 10:03 PM EST AGE/SEX: 83 years / Female INDICATIONS: Stroke alert. Altered mental status. CLINICAL DATA: This is the patient's initial encounter. Patient reports that signs and symptoms have been present for 1 day and indicates a pain score of Nonresponsive. MEDICAL/SURGICAL HISTORY: Non-responsive. Non-responsive. RADIATION DOSE: 49.83 CTDI (mGy) [place] [facility] [place]. . TECHNIQUE: CT of the head without contrast. Using automated exposure control and adjustment of the mA and/or kV according to patient size, radiation dose was kept as low as reasonably achievable to ob tain optimal diagnostic quality images. DICOM format image data is available electronically for revi ew and comparison. FINDINGS: Cerebrum: The ventricles are normal for age. There are multiple small lacunar infarcts in the basal ganglia and thalami bilaterally, stable in appearance from prior CT in January 2018. Decreased attenua tion in the white matter is also stable. No evidence of midline shift, mass lesion, hemorrhage or acu te infarction. No extraaxial fluid collections are seen. Posterior Fossa: The cerebellum and brainstem are intact. The 4th ventricle is midline. The cerebe llopontine angle is unremarkable. Extracranial: The visualized portion of the orbits is intact. Skull: The calvaria is intact. No evidence of skull fracture. CONCLUSION: 1. No acute findings in the brain. 2. White matter ischemic change and multiple lacunar infarcts, stable from January 2018. Report was called to Dr. Vasques at 10:06 PM Electronically signed by: Yazan Nielsen MD 10/08/2018 10:08 PM EST
[2018-10-08 22:23] LABS: Baso # (Auto) 0.2 th/mm3 (0.0-0.2); Baso % (Auto) 1.8 % (0.0-2.0); Eos # (Auto) 0.3 th/mm3 (0.0-0.4); Eos % (Auto) 3.2 % (0.0-4.0); Hemoglobin 14.7 gm/dL (11.6-15.3); Lymph # (Auto) 3.6 th/mm3 (1.0-4.8); Lymph % (Auto) 36.4 % (9.0-44.0); Mean Corpuscular HGB Conc 33.4 % (32.0-36.0); Mean Corpuscular Hemoglobin 30.7 pg (27.0-34.0); Mean Corpuscular Volume 92.1 fL (80.0-100.0); Mean Platelet Volume 7.1 fL (7.0-11.0); Mono # (Auto) 0.7 th/mm3 (0.0-0.9); Mono % (Auto) 6.6 % (0.0-8.0); Neut # (Auto) 5.1 th/mm3 (1.8-7.7); Platelet Count 414 th/mm3 (150-450); Red Blood Count 4.78 mil/mm3 (4.00-5.30); Red Cell Distribution Width 12.7 % (11.6-17.2); White Blood Count 9.9 th/mm3 (4.0-11.0)
[2018-10-08 22:29] LABS: Chloride 102 meq/L (98-107); Potassium 4.3 meq/L (3.5-5.1); Sodium 137 meq/L (136-145)
[2018-10-08] MEDS ORDERED: Sod Chloride 0.9% Inj 1,000 ML IV.SIG ONE (22:29)
[2018-10-08 22:33] LABS: Anion Gap 10 meq/L (5-15); Blood Urea Nitrogen 10 mg/dL (7-18); Calcium 9.4 mg/dL (8.5-10.1); Glucose,Random 86 mg/dL (74-106)
[2018-10-08 22:34] LABS: Activated Partial Thrombo Time 29.2 sec (23.4-31.7); INR 0.9 Ratio; Prothrombin Time 9.5 sec (9.8-11.6)
[2018-10-08 22:37] LABS: Glomerular Filtration Rate 69 mL/min (>89)
[2018-10-08 22:45] LABS: Creatine Kinase 42 U/L (26-192)
--- NOTE | 2018-10-08 23:15 | XR ---
EXAM DATE: 10/08/2018 11:10 PM EST AGE/SEX: 83 years / Female INDICATIONS: Stroke alert. CLINICAL DATA: This is the patient's initial encounter. Patient reports that signs and symptoms have been present for 1 day and indicates a pain score of 0/10. MEDICAL/SURGICAL HISTORY: None. None. COMPARISON: [facility], CHEST 1V SINGLE AP, 06/23/2018. . FINDINGS: A single AP view of the chest demonstrates the lungs to be symmetrically aerated without evidence of mass, infiltrate or effusion. Atherosclerotic changes are present in the aorta. The cardiomediastinal contours are unremarkable. Osseous structures are intact. There are multiple overlying electrocard iogram leads. CONCLUSION: No acute cardiopulmonary disease. Electronically signed by: Layo Esteabn MD 10/08/2018 11:14 PM EST
[2018-10-08 23:22] LABS: Bilirubin,Urine Negative (Negative); Clarity,Urine Clear (Clear); Color,Urine Yellow (Yellw/Straw); Glucose,Urine (UA) Negative (Negative); Leukocyte Esterase,Urine Small (Negative); Nitrite,Urine Negative (Negative); Specific Gravity,Urine Less/Equal 1.005 (1.002-1.035); Urobilinogen,Urine 0.2 mg/dL (Less than 2)
[2018-10-08 23:27] LABS: RBC,Urine 0-3 /hpf (0-3); Squamous Epithelial Cell,Urine 0-5 /hpf (0-5)
--- NOTE | 2018-10-08 23:44 | CT ---
EXAM DATE: 10/08/2018 11:33 PM EST AGE/SEX: 83 years / Female INDICATIONS: Abdominal pain. CLINICAL DATA: This is the patient's initial encounter. Patient reports that signs and symptoms have been present for 1 day and indicates a pain score of 4/10. MEDICAL/SURGICAL HISTORY: Gastroesophageal reflux disease. Hypertension. Hysterectomy. Fusion , lumbar. ORAL CONTRAST: No oral contrast ingested. RADIATION DOSE: 5.98 CTDI (mGy) COMPARISON: [facility], CT ABDOMEN & PELVIS W CONTRAST, 06/23/2018. . TECHNIQUE: Multiple contiguous axial images were obtained through the abdomen and pelvis following b olus infusion of 100 ml Omnipaque 350 (iohexol) nonionic water-soluble contrast as a single exam do se. No oral contrast ingested. Using automated exposure control and adjustment of the mA and/or kV a ccording to patient size, radiation dose was kept as low as reasonably achievable to obtain optimal d iagnostic quality images. DICOM format image data is available electronically for review and compari son. FINDINGS: Lower Lungs: The visualized lower lungs are clear. Liver: The liver has a homogeneous density without space-occupying lesion. There is no dilation of th e biliary tree. The gallbladder remains unremarkable in appearance. Spleen: Homogeneous density without enlargement. There are multiple calcified granulomas again noted . Pancreas: Unremarkable without mass or calcification. Kidneys: Normal in size and shape. No evidence of a solid mass or hydronephrosis. Small bilateral cy sts again noted. Adrenal Glands: Unremarkable. Aorta: The aorta and proximal iliac vessels are grossly unremarkable without aneurysmal dilation. Bowel/Mesentery: No oral contrast was given limiting the sensitivity exam. There are multiple loops of nondilated air-containing small bowel with several small air-fluid levels. A moderate amount of st ool is present in the colon with no free air. Scattered diverticuli again noted. Abdominal Wall: Intact. Retroperitoneum: No evidence of adenopathy in the retrocrural, para-aortic, or deep pelvic regions. Bladder: A Monterroso catheter is present in the bladder with small air-fluid level. Reproductive Organs: No abnormal masses or calcifications seen. Inguinal: The inguinal region is unremarkable without evidence of adenopathy. Bony Structures: Osteopenia, degenerative change and scoliosis are again noted. There are postoperat madi changes in the lumbar spine. There is a healing fracture of the left inferior pubic rami again no evie. CONCLUSION: 1. Nonspecific, nonobstructive bowel gas pattern which may represent a mild ileus and or gastroenter itis. Moderate amount of stool is present throughout the colon. 2. Mild diverticulosis. 3. Unremarkable gallbladder. Electronically signed by: Layo Esteban MD 10/08/2018 11:43 PM EST
--- NOTE | 2018-10-09 00:38 | ED ---
HPI General Chief complaint: Nausea/Vomiting/Diarrhea Stated complaint: Poss Stroke Time Seen by Provider: 10/08/18 21:54 Source: patient History of Present Illness HPI Narrative: 83-year-old female presents to the emergency room by EMS complaining of nausea, vomiting, right leg pain and right lower quadrant abdominal pain. EMS had called a stroke alert on the patient due to confusion, altered mental status and the right leg weakness per patient. In the emergency department patient was alert oriented x3. Patient was answering questions appropriately, Moving all 4 extremities well without deficits or weakness. Patient was complaining of right leg pain at the hip area. Patient also was complaining of right lower quadrant abdominal pain with nausea.Patient denies diarrhea, constipation, fever, chills, shortness of breath, chest pain, headache , blurring of vision or focal deficits. Related Data Home Medications Medication Instructions Recorded Confirmed amlodipine 5 mg PO BID 06/23/18 10/08/18 aspirin 81 mg PO DAILY 06/23/18 10/08/18 atorvastatin [Lipitor] 20 mg PO DAILY 06/23/18 10/08/18 calcium carbonate [Calcium 500] 500 mg PO DAILY 06/23/18 10/08/18 cranberry 400 mg PO DAILY 06/23/18 10/08/18 uaylzmzneuau-ffk-uwwx-FA-vit K 1 tab PO DAILY 06/23/18 10/08/18 [Multi For Her] nitrofurantoin monohyd/m-cryst 100 mg PO BID 06/23/18 10/08/18 [Macrobid] pantoprazole 40 mg PO DAILY 06/23/18 10/08/18 thiamine HCl (vitamin B1) [Vitamin 100 mg PO DAILY 06/23/18 10/08/18 B-1] Previous Rx's Medication Instructions Recorded nitazoxanide [Alinia] 500 mg PO BID #7 tab 06/24/18 Allergies Allergy/AdvReac Type Severity Reaction Status Date / Time Fish Containing Products Allergy Severe SOB Verified 06/23/18 07:10 penicillin G Allergy Severe sob Verified 06/23/18 07:10 Sulfa (Sulfonamide Allergy Severe Swelling Verified 06/23/18 07:10 Antibiotics) oxytetracycline Allergy Mild SOB Verified 06/23/18 07:10 morphine AdvReac Intermediate Swelling Verified 06/23/18 07:10 SEAFOOD AdvReac Severe RED ALL Uncoded 08/10/17 07:04 OVER Review of Systems Constitutional Denies fever(s) Eyes Denies change in vision ENT Denies headache(s) and Denies nasal congestion Cardiovascular Denies chest pain Respiratory Denies dyspnea Gastrointestinal Reports cramping and Reports nausea Genitourinary Denies difficulty voiding Musculoskeletal Reports back pain and Reports radiating pain into limb Integumentary/Breasts Denies rash Neurologic Reports confusion and Reports vertigo Psychiatric Denies depression Endocrine Denies polyuria Hematologic/Lymphatic Denies easy bruising [facility] Medical History Medical History GERD (gastroesophageal reflux disease) (Acute) HTN (hypertension) (Acute) History of hysterectomy (Acute) Hyperlipidemia (Acute) Recurrent UTI (Acute) Surgical History Surgical History History of tonsillectomy and adenoidectomy (Acute) Social History Social History Substance History: No History of Abuse Second Hand Smoke Exposure: No Smoking Status: Former smoker Tobacco Type: Cigarettes How Often Do You Have a Drink Containing Alcohol: 2 to 3 times a week Recent Travel in [facility] within the Last 8 Weeks: No Recent Out of Country Travel within the Last 8 Weeks: No Immunization History Tetanus Immunization: Unsure Exam Narrative Exam Narrative: GENERAL: Patient is alert and oriented -3 SKIN: Focused skin assessment warm/dry.Right lower extremity abrasions on the anterior carmichael HEAD: Atraumatic. Normocephalic. EYES: Pupils equal and round. No scleral icterus. No injection or drainage. ENT: No nasal bleeding or discharge. Mucous membranes pink and moist. NECK: Trachea midline. No JVD. CARDIOVASCULAR: Regular rate and rhythm. No murmur appreciated. RESPIRATORY: No accessory muscle use. Clear to auscultation. Breath sounds equal bilaterally. GASTROINTESTINAL: Abdomen soft, Tender right lower quadrant, nondistended. Hepatic and splenic margins not palpable. MUSCULOSKELETAL: No obvious deformities. No clubbing. No cyanosis. No edema. Tenderness over the right buttocks and the right lumbar region. NEUROLOGICAL: Awake and alert. No obvious cranial nerve deficits. Motor grossly within normal limits. Normal speech. PSYCHIATRIC: Appropriate mood and affect; insight and judgment normal. Course Initial Documented Vital Signs Temperature 97.9 F 11/13/18 22:00 Pulse Rate 89 10/08/18 22:00 Respiratory Rate 18 10/08/18 22:00 Blood Pressure 146/99 H 10/08/18 22:00 Pulse Oximetry 97 10/08/18 22:00 Last Documented Vital Signs Temperature 96.4 F L 10/09/18 02:40 Pulse Rate 85 10/09/18 02:40 Respiratory Rate 18 10/09/18 02:40 Blood Pressure 158/67 H 10/09/18 02:40 Pulse Oximetry 96 10/09/18 02:40 Medical Decision Making [facility] Narrative Medical Screen Exam Complete: Yes Emergency Medical Condition: Yes Lab Data Result diagrams: 10/08/18 22:10 10/08/18 22:10 Lab Results 10/08/18 10/08/18 10/08/18 Range/Units 22:00 22:10 22:10 CBC w Diff Auto diff final WBC 9.9 (4.0-11.0) th/mm3 RBC 4.78 (4.00-5.30) mil/mm3 Hgb 14.7 (11.6-15.3) gm/dL Hct 44.0 (35.0-46.0) % MCV 92.1 (80.0-100.0) fL MCH 30.7 (27.0-34.0) pg MCHC 33.4 (32.0-36.0) % RDW 12.7 (11.6-17.2) % Plt Count 414 (150-450) th/mm3 MPV 7.1 (7.0-11.0) fL Neut % (Auto) 52.0 (16.0-70.0) % Lymph % (Auto) 36.4 (9.0-44.0) % [place] % (Auto) 6.6 (0.0-8.0) % Eos % (Auto) 3.2 (0.0-4.0) % Baso % (Auto) 1.8 (0.0-2.0) % Neut # (Auto) 5.1 (1.8-7.7) th/mm3 Lymph # (Auto) 3.6 (1.0-4.8) th/mm3 [place] # (Auto) 0.7 (0.0-0.9) th/mm3 Eos # (Auto) 0.3 (0.0-0.4) th/mm3 Baso # (Auto) 0.2 (0.0-0.2) th/mm3 WBC Differential . Differential Comment . PT 9.5 L (9.8-11.6) sec INR 0.9 Ratio APTT 29.2 (23.4-31.7) sec Sodium (136-145) meq/L Potassium (3.5-5.1) meq/L Chloride (98-107) meq/L Carbon Dioxide (21.0-32.0) meq/L Anion Gap (5-15) meq/L BUN (7-18) mg/dL Creatinine (0.50-1.00) mg/dL Estimated GFR (>89) mL/min Random Glucose (74-106) mg/dL Calcium (8.5-10.1) mg/dL Total Creatine Kinase (26-192) U/L Troponin I (0.02-0.05) ng/mL B-Natriuretic Peptide (0-100) pg/mL Urine Color Yellow (Yellw/Straw) Urine Clarity Clear (Clear) Urine pH 7.0 (5.0-8.5) Ur Specific Reading Less/equal 1.005 (1.002-1.035) Urine Protein Negative (Neg-Trace) mg/dL Urine Glucose (UA) Negative (Negative) mg/dL Urine Ketones Negative (Negative) mg/dL Urine Occult Blood Trace (Negative) Urine Nitrate Negative (Negative) Urine Bilirubin Negative (Negative) Urine Urobilinogen 0.2 (Less than 2) mg/dL Ur Leukocyte Esterase Small H (Negative) Urine RBC 0-3 (0-3) /hpf Urine WBC 6-8 H (0-5) /hpf Ur Squamous Epith Cells 0-5 (0-5) /hpf Micro UA Comment Cath-culture not ind Ur Microscopic Review Microscopic reviewed Urine Culture Comments Cath-cult not ind 10/08/18 10/08/18 Range/Units 22:10 22:10 CBC w Diff WBC (4.0-11.0) th/mm3 RBC (4.00-5.30) mil/mm3 Hgb (11.6-15.3) gm/dL Hct (35.0-46.0) % MCV (80.0-100.0) fL MCH (27.0-34.0) pg MCHC (32.0-36.0) % RDW (11.6-17.2) % Plt Count (150-450) th/mm3 MPV (7.0-11.0) fL Neut % (Auto) (16.0-70.0) % Lymph % (Auto) (9.0-44.0) % [place] % (Auto) (0.0-8.0) % Eos % (Auto) (0.0-4.0) % Baso % (Auto) (0.0-2.0) % Neut # (Auto) (1.8-7.7) th/mm3 Lymph # (Auto) (1.0-4.8) th/mm3 [place] # (Auto) (0.0-0.9) th/mm3 Eos # (Auto) (0.0-0.4) th/mm3 Baso # (Auto) (0.0-0.2) th/mm3 WBC Differential Differential Comment PT (9.8-11.6) sec INR Ratio APTT (23.4-31.7) sec Sodium 137 (136-145) meq/L Potassium 4.3 (3.5-5.1) meq/L Chloride 102 (98-107) meq/L Carbon Dioxide 25.0 (21.0-32.0) meq/L Anion Gap 10 (5-15) meq/L BUN 10 (7-18) mg/dL Creatinine 0.80 (0.50-1.00) mg/dL Estimated GFR 69 L (>89) mL/min Random Glucose 86 (74-106) mg/dL Calcium 9.4 (8.5-10.1) mg/dL Total Creatine Kinase 42 (26-192) U/L Troponin I Less than 0.02 L (0.02-0.05) ng/mL B-Natriuretic Peptide 27 (0-100) pg/mL Urine Color (Yellw/Straw) Urine Clarity (Clear) Urine pH (5.0-8.5) Ur Specific Reading (1.002-1.035) Urine Protein (Neg-Trace) mg/dL Urine Glucose (UA) (Negative) mg/dL Urine Ketones (Negative) mg/dL Urine Occult Blood (Negative) Urine Nitrate (Negative) Urine Bilirubin (Negative) Urine Urobilinogen (Less than 2) mg/dL Ur Leukocyte Esterase (Negative) Urine RBC (0-3) /hpf Urine WBC (0-5) /hpf Ur Squamous Epith Cells (0-5) /hpf Micro UA Comment Ur Microscopic Review Urine Culture Comments Imaging Data Radiologist's impression: Head CT 10/08/18 21:54 CONCLUSION: 1. No acute findings in the brain. 2. White matter ischemic change and multiple lacunar infarcts, stable from January 2018. Report was called to Dr. Vasques at 10:06 PM Abdomen/Pelvis CT 10/08/18 22:43 CONCLUSION: 1. Nonspecific, nonobstructive bowel gas pattern which may represent a mild ileus and or gastroenteritis. Moderate amount of stool is present throughout the colon. 2. Mild diverticulosis. 3. Unremarkable gallbladder. Chest X-Ray 10/08/18 22:43 CONCLUSION: No acute cardiopulmonary disease. Discharge Plan Discharge Disposition Patient Disposition: 30 Still Patient Discharge Condition Condition: Stable Discharge Details Diagnosis: Acute UTI, Abdominal pain, Altered mental status Physicians Team ED Provider: Shimon Vasques Primary Care Provider: UNKNOWN, Attending Provider: Martha Sheppard Status ED Status: Left Department Discharge Information Discharge Date/Time: 10/09/18 02:15
[2018-10-09] MEDS: Sod Chloride 0.9% Inj 1,000 ML IV.CONT SCH ×2 (01:44→20:40)
[2018-10-09] MEDS: Ketorolac Inj 30 MG/ML (IVP) Vial IV.PUSH PRN ×2 (02:59→20:38)
[2018-10-09] MEDS ORDERED: CRANBERRY 400 MG PO SCH (09:00)
[2018-10-09] MEDS: Multivitamin/Minerals Therapeutic Tablet PO SCH (09:44)
[2018-10-09] MEDS: Calcium Carbonate 500 MG Tablet PO SCH (09:44)
[2018-10-09] MEDS: amLODIPine 5 MG Tablet PO SCH ×2 (09:45→20:45)
--- NOTE | 2018-10-09 11:09 | P.HPIM ---
History of Present Illness Service: [facility] Primary Care Physician: UNKNOWN Chief Complaint: Nausea and vomiting and diarrhea right leg pain and right lower quadrant ab History of Present Illness: Patient is an 83-year-old female presented emergency department by EMS complaining of nausea, vomiting, right leg pain and right lower quadrant abdominal pain. EMS had called a stroke alert on the patient due to confusion, and altered mental status and the right leg weakness per patient. In the emergency department patient was alert and oriented x3. She was answering questions appropriately. She was moving all 4 extremities without any deficits or weakness. Was complaining of some right leg pain at the hip area. Also complaining of right lower quadrant abdominal pain with nausea and. Patient denies any diarrhea or constipation or fevers or chills or shortness of breath or chest pain or headaches or blurring of vision or focal deficits at this time. Past medical history significant for hypertension hyper and hyperlipidemia and chronic urinary tract infections and GERD Family history positive for hypertension We will ask physical therapy to eval and treat We will get an MRI lumbar region Will give medications since her CAT scan showed constipation Review of Systems All other systems reviewed negative except as stated in HPI PMFSH - History History Provided By: Patient - Medical History Medical History: Medical History (Last Reviewed 10/09/18 @ 05:18 by Shimon Vasques) GERD (gastroesophageal reflux disease) HTN (hypertension) History of hysterectomy Hyperlipidemia Recurrent UTI - Surgical History Surgical History: Surgical History (Last Reviewed 10/09/18 @ 05:18 by Shimon Vasques) History of tonsillectomy and adenoidectomy - Family History Family History: Family History (Last Updated 10/09/18 @ 11:11 by Jcarlos Jackson DO) Other Family history of hypertension - Social History I have reviewed the patient's Social History: Yes - Tobacco History Second Hand Smoke Exposure: No Tobacco Use In Past 30 Days: No Smoking Status: Former smoker Tobacco Type: Cigarettes - Alcohol History How Often Do You Have a Drink Containing Alcohol: 2 to 3 times a week - Substance Use History Substance History: No History of Abuse - Travel History History of Recent Travel: No Recent Travel in the [place] Within the Last 8 Weeks: No Recent Travel Out of the Country Within the Last 8 Weeks: No - Immunization History Tetanus Immunization: Unsure Medications and Allergies Active Medications: Active Medications Amlodipine Besylate (Norvasc) 5 mg PO BID PAUL Last Admin: 10/09/18 09:45 Dose: 5 mg Aspirin (Aspirin Chew) 81 mg PO DAILY [facility] Last Admin: 10/09/18 09:44 Dose: 81 mg Atorvastatin Calcium (Lipitor) 20 mg PO DAILY [facility] Last Admin: 10/09/18 09:43 Dose: 20 mg Calcium Carbonate (Oscal) 500 mg PO DAILY [facility] Last Admin: 10/09/18 09:44 Dose: 500 mg Sodium Chloride (Ns Inj) 1,000 mls @ 70 mls/hr IV.CONT .[id number] [facility] Last Admin: 10/09/18 01:44 Dose: 70 mls/hr Ketorolac Tromethamine (Toradol Inj) 15 mg IV.PUSH Q6H PRN PRN Reason: pain Stop: 10/14/18 00:57 Last Admin: 10/09/18 02:59 Dose: 15 mg Multivitamins/Minerals (Theragran-M) 1 tab PO DAILY [facility] Last Admin: 10/09/18 09:44 Dose: 1 tab Ondansetron HCl (Zofran Inj) 4 mg IV.PUSH Q6H PRN PRN Reason: NAUSEA OR VOMITING Pantoprazole Sodium (Protonix) 40 mg PO DAILY [facility] Last Admin: 10/09/18 08:37 Dose: 40 mg Pantoprazole Sodium (Protonix) 40 mg PO DAILY [facility] Last Admin: 10/09/18 10:09 Dose: 40 mg Sodium Chloride (Ns Flush) 2 ml IV.FLUSH PRN PRN PRN Reason: FLUSH AFTER USING IV ACCESS Thiamine HCl (Vitamin B1) 100 mg PO DAILY [facility] Last Admin: 10/09/18 09:45 Dose: 100 mg Allergies Allergy/AdvReac Type Severity Reaction Status Date / Time Fish Containing Products Allergy Severe SOB Verified 06/23/18 07:10 penicillin G Allergy Severe sob Verified 06/23/18 07:10 Sulfa (Sulfonamide Allergy Severe Swelling Verified 06/23/18 07:10 Antibiotics) oxytetracycline Allergy Mild SOB Verified 06/23/18 07:10 morphine AdvReac Intermediate Swelling Verified 06/23/18 07:10 SEAFOOD AdvReac Severe RED ALL Uncoded 08/10/17 07:04 OVER Home Medications Medication Instructions Recorded Confirmed Type amlodipine 5 mg PO BID 06/23/18 10/08/18 History aspirin 81 mg PO DAILY 06/23/18 10/08/18 History atorvastatin [Lipitor] 20 mg PO DAILY 06/23/18 10/08/18 History calcium carbonate [Calcium 500] 500 mg PO DAILY 06/23/18 10/08/18 History cranberry 400 mg PO DAILY 06/23/18 10/08/18 History qofvcilutnah-cjw-hvjy-FA-vit K 1 tab PO DAILY 06/23/18 10/08/18 History [Multi For Her] nitrofurantoin monohyd/m-cryst 100 mg PO BID 06/23/18 10/08/18 History [Macrobid] pantoprazole 40 mg PO DAILY 06/23/18 10/08/18 History thiamine HCl (vitamin B1) [Vitamin 100 mg PO DAILY 06/23/18 10/08/18 History B-1] Exam Vital signs: Vital Signs 10/08/18 22:00 10/08/18 22:30 10/08/18 23:15 Temperature 97.9 F Pulse Rate 89 86 80 Respiratory Rate 18 18 Blood Pressure 146/99 H 157/58 H 127/57 L Pulse Oximetry 97 10/08/18 23:58 10/09/18 00:02 10/09/18 00:15 Temperature Pulse Rate 86 82 Respiratory Rate 20 Blood Pressure 120/58 L 120/58 L Pulse Oximetry 97 98 10/09/18 01:15 10/09/18 02:15 10/09/18 02:40 Temperature 96.4 F L Pulse Rate 83 80 85 Respiratory Rate 18 18 Blood Pressure 140/62 143/74 H 158/67 H Pulse Oximetry 96 10/09/18 08:00 Temperature 97.9 F Pulse Rate 74 Respiratory Rate 20 Blood Pressure 136/61 Pulse Oximetry 94 L Intake & Output 10/08/18 10/09/18 10/09/18 18:59 06:59 18:59 Intake Total 1100 / 1100 Output Total 1300 / 1300 Balance -200 / -200 Weight 52.4 kg Intake: IV 1100 / 1100 NS Inj 1,000 ML @ Wide Open IV. 1000 / 1000 SIG BOLUS ONE Rx#:[id number] Rocephin Inj 1,000 MG In NS Inj 100 / 100 100 ML @ 200 mls/hr IV.SIG ONCE ONE Rx#:[id number] Oral 0 / 0 Output: Urine 1300 / 1300 Other: Date of Last Bowel Movement 10/08/18 10/08/18 Weight On Admission 50.126 kg Narrative: GENERAL: Awake alert and oriented x3 talkative and cooperative SKIN: Warm and dry. HEAD: Atraumatic. Normocephalic. EYES: Pupils equal and round. No scleral icterus. No injection or drainage. EOMI ENT: No nasal bleeding or discharge. Mucous membranes pink and moist. Tongue is midline NECK: Trachea midline. No JVD. Supple CARDIOVASCULAR: Regular rate and rhythm. S1-S2 no S3 or S4 RESPIRATORY: No accessory muscle use. Clear to auscultation. Breath sounds equal bilaterally. GASTROINTESTINAL: Abdomen soft, nondistended. Hepatic and splenic margins not palpable. Mild tenderness right quadrant as well as some on the left quadrant MUSCULOSKELETAL: Extremities without clubbing, cyanosis, or edema. No obvious deformities. NEUROLOGICAL: Awake and alert. No obvious cranial nerve deficits. Motor grossly within normal limits. Five out of 5 muscle strength in the arms and legs. Normal speech. PSYCHIATRIC: Appropriate mood and affect; insight and judgment normal. Results - Labs CBC & Chem 7: 10/08/18 22:10 10/08/18 22:10 Labs: Short CBC 10/08/18 Range/Units 22:10 WBC 9.9 (4.0-11.0) th/mm3 Hgb 14.7 (11.6-15.3) gm/dL Hct 44.0 (35.0-46.0) % Plt Count 414 (150-450) th/mm3 BMP 10/08/18 22:10 Sodium 137 Potassium 4.3 Chloride 102 Carbon Dioxide 25.0 BUN 10 Creatinine 0.80 Calcium 9.4 Cardiac Enzymes 10/08/18 Range/Units 22:10 Total Creatine Kinase 42 (26-192) U/L Troponin I Less than 0.02 L (0.02-0.05) ng/mL Urine 10/08/18 Range/Units 22:00 Urine Color Yellow (Yellw/Straw) Urine Clarity Clear (Clear) Urine pH 7.0 (5.0-8.5) Ur Specific [place] Less/equal 1.005 (1.002-1.035) Urine Protein Negative (Neg-Trace) mg/dL Urine Glucose (UA) Negative (Negative) mg/dL - Imaging Impressions Head CT 10/08/18 21:54 CONCLUSION: 1. No acute findings in the brain. 2. White matter ischemic change and multiple lacunar infarcts, stable from January 2018. Report was called to Dr. Vasques at 10:06 PM Abdomen/Pelvis CT 10/08/18 22:43 CONCLUSION: 1. Nonspecific, nonobstructive bowel gas pattern which may represent a mild ileus and or gastroenteritis. Moderate amount of stool is present throughout the colon. 2. Mild diverticulosis. 3. Unremarkable gallbladder. Chest X-Ray 10/08/18 22:43 CONCLUSION: No acute cardiopulmonary disease. Caprini VTE Risk Assessment Caprini VTE Risk Assessment: No/Low Risk (score <= 1) Caprini Risk Assessment Model: Point Value = 1 Point Value = 2 Point Value = 3 Point Value = 5 Age 41-60 Minor surgery BMI > 25 kg/m2 Swollen legs Varicose veins or History of unexplained or recurrent spontaneous Oral contraceptives or hormone replacement Sepsis (< 1 month) Serious lung disease, including pneumonia (< 1 month) Abnormal pulmonary function Acute myocardial infarction Congestive heart failure (< 1 month) History of inflammatory bowel disease Medical patient at bed rest Age 61-74 Arthroscopic surgery Major open surgery (> 45 min) Laparoscopic surgery (> 45 min) Malignancy Confined to bed (> 72 hours) Immobilizing plaster cast Central venous access Age >= 75 History of VTE Family history of VTE Factor V Leiden Prothrombin [id number] Lupus anticoagulant Anticardiolipin antibodies Elevated serum homocysteine Heparin-induced thrombocytopenia Other congenital or acquired thrombophilia Stroke (< 1 month) Elective arthroplasty Hip, pelvis, or leg fracture Acute spinal cord injury (< 1 month) Prophylaxis Regimen: Total Risk Factor Score Risk Level Prophylaxis Regimen 0-1 Low Early ambulation 2 Moderate Order ONE of the following: *Sequential Compression Device (SCD) *Heparin 5000 units SQ BID 3-4 Higher Order ONE of the following medications: *Heparin 5000 units SQ TID *Enoxaparin/Lovenox 40 mg SQ daily (WT < 150 kg, CrCl > 30 mL/min) *Enoxaparin/Lovenox 30 mg SQ daily (WT < 150 kg, CrCl > 10-29 mL/min) *Enoxaparin/Lovenox 30 mg SQ BID (WT < 150 kg, CrCl > 30 mL/min) AND/OR *Sequential Compression Device (SCD) 5 or more Highest Order ONE of the following medications: *Heparin 5000 units SQ TID (Preferred with Epidurals) *Enoxaparin/Lovenox 40 mg SQ daily (WT < 150 kg, CrCl > 30 mL/min) *Enoxaparin/Lovenox 30 mg SQ daily (WT < 150 kg, CrCl > 10-29 mL/min) *Enoxaparin/Lovenox 30 mg SQ BID (WT < 150 kg, CrCl > 30 mL/min) AND *Sequential Compression Device (SCD) Assessment and Plan - Plan Nausea and vomiting and constipation Abdominal pain -Constipation seen on CAT scan -Start on medications for constipation chronically and scheduled -Antiemetics as needed Right lower extremity weakness suspect possible radiculopathy will get an MRI of the lumbar region for confirmation Right hip pain may also be a component of arthritis in the right hip Pain control as necessary Hypertension continue on amlodipine Hyperlipidemia continue on Lipitor GERD continue on Protonix Continue on aspirin for possible altered mental status/TIA -We will get an MRI of the brain and head is physical therapy and occupational therapy to eval and treat Possible urinary tract infection continue on Rocephin We will get an echo and carotids GI prophylaxis with Protonix DVT prophylaxis with Lovenox and ISHAAN burkett Code Status: Full code Discussed Condition With: RN and patient and case management Discharge Planning: Pending MRI echo and carotids Probable discharge tomorrow H&P: Quality - VTE Deep Vein Thrombosis/Pulmonary Embolism Present on Admission: No
[2018-10-09] MEDS ORDERED: Acetaminophen 325 MG Tablet PO PRN (11:24)
[2018-10-09] MEDS ORDERED: Bisacodyl 10 MG Supp RECTAL PRN (11:24)
--- NOTE | 2018-10-09 11:37 | ECG ---
Date Performed: 10/08/2018 Time Performed: 22:37:29 PTAGE: 83 years EKG: Sinus rhythm NORMAL ECG PREVIOUS TRACING : 06/23/2018 07.08 DOCTOR: Jose Angel Radford Interpretating Date/Time 10/09/2018 11:35:25
[2018-10-09] MEDS: Senna/Docusate Sodium 8.6/50 MG Tablet PO SCH ×2 (12:09→20:45)
[2018-10-09] MEDS: Nitrofurantoin Monohydrate-Macrocrystal 100 MG Capsule PO SCH ×2 (12:09→20:45)
[2018-10-09] MEDS: Enoxaparin Inj 40 MG/0.4 ML Syringe SQ SCH (12:09)
[2018-10-09 12:55] LABS: Creatine Kinase 30 U/L (26-192)
--- NOTE | 2018-10-09 13:08 | US ---
EXAM DATE: 10/09/2018 1:03 PM EST AGE/SEX: 83 years / Female INDICATIONS: Altered mental status. CLINICAL DATA: This is the patient's initial encounter. Patient reports that signs and symptoms have been present for 1 day and indicates a pain score of 0/10. MEDICAL/SURGICAL HISTORY: Gastroesophageal reflux disease. Hypercholesterolemia. Hypertension . Recurrent UTI. Tonsillectomy. Hysterectomy. COMPARISON: No prior exams available for comparison. VELOCITY PARAMETERS: ICA/CCA Ratio: Right 1.1 , Left 1.4 ICA: Right 92 cm/sec, Left 140 cm/sec CCA: Right 85 cm/sec, Left 104 cm/sec ECA: Right 164 cm/sec, Left 92 cm/sec Vertebral: Right 57 cm/sec antegrade, Left 43 cm/sec antegrade FINDINGS: Right Carotid: Mild to moderate arteriosclerotic plaque is visualized on the grayscale images.The wa veforms and velocities are within normal limits. Left Carotid: Mild to moderate arteriosclerotic plaque is visualized on the grayscale images. The wa veforms are within normal limits. There is mildly elevated peak systolic velocity at the left interna l carotid artery. Other: None. CONCLUSION: Mild to moderate plaque seen bilaterally. There is mildly elevated peak systolic velocity in the prox imal left internal carotid artery. A significant stenosis may be present. The carotid system could be further evaluated with a CTA or MRA. Electronically signed by: Pako Degroot MD 10/09/2018 1:07 PM EST
--- NOTE | 2018-10-09 15:10 | MR ---
EXAM DATE: 10/09/2018 2:57 PM EST AGE/SEX: 83 years / Female INDICATIONS: TIA. Confusion. CLINICAL DATA: This is the patient's subsequent encounter. Patient reports that signs and symptoms h ave been present for 1 day and indicates a pain score of 0/10. MEDICAL/SURGICAL HISTORY: Hypertension. Hysterectomy. Sacrum/coccyx surgery. Left leg surgery. COMPARISON: [facility], MR HEAD W/O CONTRAST, 10/09/2018. . TECHNIQUE: 3D [id number] MRA was performed. Source images, multiplanar STS MIP, and 3D volum e MIP reconstructions were reviewed. FINDINGS: There is moderate atherosclerotic intracranial vascular disease worse in the posterior cerebral arter y on the right with a small focal stenosis is identified. There is no major branch vessel occlusion. There is no aneurysm or vascular displacement The basilar artery is small and large posterior communicating artery on the right. CONCLUSION: 1. Moderate atherosclerotic intracranial vascular disease, negative for major branch vessel occlusio n. Electronically signed by: Jcarlos Turner MD 10/09/2018 3:09 PM EST
--- NOTE | 2018-10-09 15:14 | MR ---
EXAM DATE: 10/09/2018 2:57 PM EST AGE/SEX: 83 years / Female INDICATIONS: TIA. Confusion. CLINICAL DATA: This is the patient's subsequent encounter. Patient reports that signs and symptoms h ave been present for 1 day and indicates a pain score of 0/10. MEDICAL/SURGICAL HISTORY: Hypertension. Hysterectomy. Sacrum/coccyx surgery. Left leg surgery. COMPARISON: [facility], CT HEAD W/O CONTRAST, 10/08/2018. . TECHNIQUE: Multiplanar, multisequence examination of the brain was performed without contrast. FINDINGS: Cerebrum: The ventricles and cortical sulci are mildly widened. No evidence of midline shift, mass l esion, hemorrhage or acute infarction. No extraaxial fluid collections are seen. The pituitary glan d and suprasellar cistern are normal in configuration. There appears to be old lacunar infarct at the left thalamus and basal ganglia.. White Matter: There is extensive increased signal within the periventricular white matter. Posterior Fossa: The cerebellum and brainstem are intact. The 4th ventricle is midline. The cerebel lopontine angle is unremarkable. The cerebellar tonsils are normal in position. Diffusion Imaging: No focal areas of restricted diffusion are seen. No evidence of acute infarction . Extracranial: The visualized portions of the orbits are unremarkable. There is mucosal disease seen at the right maxillary sinus. CONCLUSION: 1. Age-related atrophy. 2. Increased signal throughout the cerebral white matter likely from small vessel ischemic change. 3. Old lacunar infarcts. 4. No definite acute intracranial abnormality is seen. 5. Right maxillary sinuses disease. Electronically signed by: Pako Degroot MD 10/09/2018 3:12 PM EST
[2018-10-09] MEDS ORDERED: Gadobutrol PF 2 MMOL/2 ML Vial (for RAD) IV.SIG ONE (15:23)
--- NOTE | 2018-10-09 16:18 | MR ---
EXAM DATE: 10/09/2018 4:01 PM EST AGE/SEX: 83 years / Female INDICATIONS: Radiculopathy. Pain radiating to left leg. CLINICAL DATA: This is the patient's subsequent encounter. Patient reports that signs and symptoms h ave been present for 1 day and indicates a pain score of 6/10. MEDICAL/SURGICAL HISTORY: Hypertension. Hysterectomy. Fusion, lumbar. Sacrum/coccyx surgery. Left leg surgery. COMPARISON: [facility], MR LUMBAR SPINE W/O CONTRAST, 02/26/2017. . TECHNIQUE: Multiplanar, multisequence MRI examination of the lumbar spine was performed without and with 5 ml Gadavist (gadobutrol) contrast as a single exam dose. FINDINGS: At T12-L1 there is no significant abnormality. At L1-2 there is mild degenerative change without stenosis. At L2-3 there is a mild posterior disc osteophyte complex and facet arthropathy with mild encroachmen t on the lateral recesses. Bilateral foraminal stenosis, right greater than left. At L3-4 there is a posterior disc osteophyte complex and facet arthropathy with mild encroachment on the lateral recesses and neural foramina. At L4-5 there is now left-sided pedicle screw and rosario fixation with slight improvement in previous an terolisthesis noted in February 2017. Previous canal stenosis has improved. There is some residual bilat eral foraminal stenosis, worse on the left. At L5-S1 there is no significant canal or foraminal stenosis. CONCLUSION: 1. Interval fusion at L4-5 with improvement in stenosis and spondylolisthesis as above. Remainder of exam fairly stable compared with 2017. 2. Postcontrast images reveal some mild epidural enhancing fibrosis at L4-5 without significant thec al sac stenosis. Electronically signed by: Adin Salas MD 10/09/2018 4:17 PM EST
--- NOTE | 2018-10-09 17:59 | ECHRPT ---
Indication: CONCLUSIONS The left ventricular systolic function is hyperdynamic with an estimated ejection fraction in the ra nge of 65- 70%. Doppler parameters are consistent with impaired left ventricular relaxtion (grade 1 diastolic dysfun ction). Trace mitral valve regurgitation. There is trace tricuspid valve regurgitation. BP: / HR: Rhythm: MEASUREMENTS (Male / Female) Normal Values Technical Quality: 2D ECHO LV Diastolic Diameter PLAX 3.7 cm 4.2 - 5.9 / 3.9 - 5.3 cm LV Systolic Diameter PLAX 2.5 cm IVS Diastolic Thickness 0.9 cm 0.6 - 1.0 / 0.6 - 0.9 cm LVPW Diastolic Thickness 0.9 cm 0.6 - 1.0 / 0.6 - 0.9 cm LV Relative Wall Thickness 0.5 LVOT Diameter 1.5 cm LA Systolic Diameter LX 3.2 cm 3.0 - 4.0 / 2.7 - 3.8 cm M-MODE Aortic Root Diameter MM 2.0 cm LA Systolic Diameter MM 3.4 cm LA Ao Ratio MM 1.7 AV Cusp Separation MM 1.4 cm DOPPLER AV Peak Velocity 174.0 cm/s AV Peak Gradient 12.1 mmHg LVOT Peak Velocity 120.0 cm/s LVOT Peak Gradient 5.8 mmHg AV Area Cont Eq pk 1.2 cm MV Area PHT 3.5 cm Mitral E Point Velocity 116.0 cm/s Mitral A Point Velocity 129.0 cm/s Mitral E to A Ratio 0.9 LV E' Lateral Velocity 5.8 cm/s Mitral E to LV E' Lateral Ratio 20.2 LV E' Septal Velocity 6.8 cm/s Mitral E to LV E' Septal Ratio 17.0 TR Peak Velocity 267.0 cm/s TR Peak Gradient 28.5 mmHg Right Atrial Pressure 10.0 mmHg Pulmonary Artery Systolic Pressu 38.5 mmHg Right Ventricular Systolic Press 38.5 mmHg PV Peak Velocity 132.0 cm/s PV Peak Gradient 7.0 mmHg FINDINGS LEFT VENTRICLE The left ventricular systolic function is hyperdynamic with an estimated ejection fraction in the ra nge of 65- 70%. Wall thickness is normal. Normal left ventricular size. No regional wall motion abnormalities are present. Doppler parameters are consistent with impaired left ventricular relaxtion (grade 1 diastolic dysfun ction). RIGHT VENTRICLE Normal right ventricular size and systolic function. LEFT ATRIUM The left atrial size is normal. RIGHT ATRIUM The right atrial size is normal. ATRIAL SEPTUM Normal atrial septal thickness without atrial level shunting by limited color doppler interrogation. AORTA The aortic root and proximal ascending aorta are normal in size on limited imaging. MITRAL VALVE Structurally normal mitral valve. Mild mitral annular calcification. Trace mitral valve regurgitation. No mitral valve stenosis. AORTIC VALVE Trileaflet aortic valve. No aortic valve stenosis or regurgitation. TRICUSPID VALVE Structurally normal tricuspid valve. There is trace tricuspid valve regurgitation. The estimated pulmonary arterial pressure is 38.5 mmHg. PULMONARY VALVE No pulmonary valve regurgitation or stenosis. VESSELS The inferior vena cava is normal in size. PERICARDIUM No pericardial effusion. Jigar Coronel DO (Electronically Signed) Final Date:09 October 2018 17:58
[2018-10-09 18:05] LABS: Creatine Kinase 35 U/L (26-192)
[2018-10-09] MEDS ORDERED: Melatonin 5 MG Tablet PO ONE (21:00)
[2018-10-10 01:08] LABS: Creatine Kinase 29 U/L (26-192)
[2018-10-10] MEDS: Sod Chloride 0.9% Inj 1,000 ML IV.CONT SCH (05:11)
[2018-10-10 06:38] LABS: Baso % (Auto) 0.5 % (0.0-2.0); Eos # (Auto) 0.4 th/mm3 (0.0-0.4); Eos % (Auto) 5.1 % (0.0-4.0); Hematocrit 37.4 % (35.0-46.0); Hemoglobin 12.9 gm/dL (11.6-15.3); Lymph # (Auto) 2.3 th/mm3 (1.0-4.8); Mean Corpuscular HGB Conc 34.6 % (32.0-36.0); Mean Corpuscular Hemoglobin 31.1 pg (27.0-34.0); Mean Corpuscular Volume 89.9 fL (80.0-100.0); Mean Platelet Volume 8.3 fL (7.0-11.0); Mono # (Auto) 0.7 th/mm3 (0.0-0.9); Neut % (Auto) 53.4 % (16.0-70.0); Platelet Count 309 th/mm3 (150-450); Red Blood Count 4.16 mil/mm3 (4.00-5.30); Red Cell Distribution Width 13.2 % (11.6-17.2); White Blood Count 7.4 th/mm3 (4.0-11.0)
[2018-10-10 07:53] LABS: Potassium 3.7 meq/L (3.5-5.1)
[2018-10-10 07:55] LABS: Calcium 8.7 mg/dL (8.5-10.1)
[2018-10-10 07:56] LABS: Carbon Dioxide 25.2 meq/L (21.0-32.0)
[2018-10-10 08:28] VITALS: O2SAT 97
[2018-10-10] MEDS: Calcium Carbonate 500 MG Tablet PO SCH (08:30)
[2018-10-10] MEDS: Senna/Docusate Sodium 8.6/50 MG Tablet PO SCH (08:31)
[2018-10-10] MEDS: amLODIPine 5 MG Tablet PO SCH (08:31)
[2018-10-10] MEDS: Nitrofurantoin Monohydrate-Macrocrystal 100 MG Capsule PO SCH (08:32)
[2018-10-10] MEDS: Multivitamin/Minerals Therapeutic Tablet PO SCH (08:33)
[2018-10-10 10:31] LABS: Chol/HDL Ratio 1.82 Ratio; HDL Cholesterol 70.8 mg/dL (40.0-60.0)
[2018-10-10] MEDS ORDERED: Gadobutrol PF 10 MMOL/10 ML Vial (for RAD) IV.SIG ONE (10:31)
[2018-10-10] MEDS: Enoxaparin Inj 40 MG/0.4 ML Syringe SQ SCH (11:00)
--- NOTE | 2018-10-10 11:00 | MR ---
EXAM DATE: 10/10/2018 10:51 AM EST AGE/SEX: 83 years / Female INDICATIONS: Stenosis. CLINICAL DATA: This is the patient's subsequent encounter. Patient reports that signs and symptoms h ave been present for 2 days and indicates a pain score of 0/10. MEDICAL/SURGICAL HISTORY: Hypertension. Hysterectomy. Left leg and tailbone removed. COMPARISON: [facility], CTA CAROTID ARTERIES W 3D RECON, 01/27/2018. . TECHNIQUE: 10 ml Gadavist (gadobutrol) contrast infused MRA (single exam dose) of the extracranial circulation was performed using a neurovascular coil. Postprocessing was performed, including rotati ng sub-volume maximum intensity projections of each carotid artery, rotating full-volume maximum inte nsity projections of both carotid arteries, sagittal and coronal sliding thin-slab reformations of ea ch carotid artery, and left oblique sliding thin-slab reformation through the aortic arch to include the origin of the arch branch vessels. FINDINGS: Aortic Arch : There is a three-vessel origin of the great vessels from the aorta. No evidence of o stial narrowing. Right Carotid : The common carotid artery is intact. The carotid bulb has a normal configuration wi thout ulceration or narrowing. The internal carotid artery lumen is smooth without stenosis. The ex ternal carotid artery is intact. Left Carotid : The common carotid artery is intact. The carotid bulb has a normal configuration wit hout ulceration or narrowing. The internal carotid artery lumen is smooth without stenosis. The ext ernal carotid artery is intact. Vertebrals : The right vertebral artery is dominant. The proximal left vertebral artery is not well visualized on this study. The left vertebral artery terminates at the PICA. CONCLUSION: 1. No evidence of significant carotid stenosis. 2. Proximal left vertebral artery not well visualized on this study. Distal left vertebral artery te rminates at PICA. Percent stenosis is calculated using the diameter of the stenotic region over the diameter of the nor mal distal internal carotid artery Electronically signed by: Kapil Knowles MD 10/10/2018 10:58 EST
[2018-10-10 11:20] VITALS: BP 129/62; PULSE 70; RESP 14; TEMP 96.3
--- NOTE | 2018-10-10 11:35 | P.DCO ---
- Diagnosis (1) Abdominal pain Status: Acute (2) HTN (hypertension) Status: Acute (3) GERD (gastroesophageal reflux disease) Status: Acute - Physical Therapy Order: Evaluate and treat, Improve ambulation, Strength and gait training - Home Health Nursing Order: Medical education, Signs/symptoms of disease process, Nursing assessment with vital signs - Case Management Consult Case Management Consult-Home Health: Yes - Certification I have seen patient Elis Hickman on 10/10/18. My clinical findings support the need for the requested home health care services because: Deconditioned with increased weakness I certify that my clinical findings support that this patient is homebound because: Impaired cognitive ability/safety
--- NOTE | 2018-10-10 11:52 | P.PNIM ---
Subjective Interval history: Follow up AMS, n/v and abdominal pain. All symptoms have improved. Eating well without any nausea, vomiting or abdominal pain. No confusion. Awake and alert. Ambulating well in room. PT recs for [facility]. Will DC home today with grandson. [facility] ordered CM assisting. All lab work stable. VSS. Physical Exam Vital signs: Vital Signs 10/09/18 12:00 10/09/18 16:00 10/09/18 20:00 Temperature 97.6 F 96.6 F L 97.8 F Pulse Rate 76 70 80 Respiratory Rate 20 20 18 Blood Pressure 118/56 L 140/65 124/56 L Pulse Oximetry 91 L 95 94 L 10/09/18 21:08 10/10/18 00:00 10/10/18 04:00 Temperature 97.4 F L 97.8 F Pulse Rate 70 71 Respiratory Rate 18 18 18 Blood Pressure 119/58 L 133/64 Pulse Oximetry 93 L 93 L 10/10/18 08:00 10/10/18 08:27 10/10/18 11:18 Temperature 98.4 F 96.3 F L Pulse Rate 74 75 70 Respiratory Rate 16 14 Blood Pressure 152/76 H 129/62 Pulse Oximetry 97 97 Intake & Output 10/09/18 10/10/18 10/10/18 18:59 06:59 18:59 Intake Total 460 / 460 1240 / 1240 Balance 460 / 460 1240 / 1240 Weight 54.2 kg Intake: IV 1000 / 1000 NS Inj 1,000 ML @ 70 mls/hr IV. 1000 / 1000 CONT .[id number] [facility] Rx#: [id number] Oral 460 / 460 240 / 240 Other: # Voids 4 4 Date of Last Bowel Movement 10/08/18 10/08/18 10/09/18 # Bowel Movements 0 Narrative: GENERAL: Awake alert and oriented x3 talkative and cooperative SKIN: Warm and dry. HEAD: Atraumatic. Normocephalic. EYES: Pupils equal and round. No scleral icterus. No injection or drainage. EOMI ENT: No nasal bleeding or discharge. Mucous membranes pink and moist. Tongue is midline NECK: Trachea midline. No JVD. Supple CARDIOVASCULAR: Regular rate and rhythm. S1-S2 RESPIRATORY: No accessory muscle use. Clear to auscultation. Breath sounds equal bilaterally. GASTROINTESTINAL: Abdomen soft, nondistended. Hepatic and splenic margins not palpable. MUSCULOSKELETAL: Extremities without clubbing, cyanosis, or edema. No obvious deformities. NEUROLOGICAL: Awake and alert. No obvious cranial nerve deficits. Motor grossly within normal limits. Five out of 5 muscle strength in the arms and legs. Normal speech. PSYCHIATRIC: Appropriate mood and affect; insight and judgment normal. Results - Labs CBC & Chem 7: 10/10/18 04:25 10/10/18 07:30 Laboratory Results - last 24 hr 10/09/18 10/09/18 10/09/18 11:52 12:08 16:36 CBC w Diff WBC RBC Hgb Hct MCV MCH MCHC RDW Plt Count MPV Neut % (Auto) Lymph % (Auto) [place] % (Auto) Eos % (Auto) Baso % (Auto) Neut # (Auto) Lymph # (Auto) [place] # (Auto) Eos # (Auto) Baso # (Auto) WBC Differential Differential Comment Sodium Potassium Chloride Carbon Dioxide Anion Gap BUN Creatinine Estimated GFR POC Glucose 88 126 H Random Glucose Calcium Total Creatine Kinase 30 Troponin I Less than 0.02 L Triglycerides Cholesterol LDL Cholesterol, Calc HDL Cholesterol Cholesterol/HDL Ratio 10/09/18 10/09/18 10/09/18 17:28 22:27 23:40 CBC w Diff WBC RBC Hgb Hct MCV MCH MCHC RDW Plt Count MPV Neut % (Auto) Lymph % (Auto) [place] % (Auto) Eos % (Auto) Baso % (Auto) Neut # (Auto) Lymph # (Auto) [place] # (Auto) Eos # (Auto) Baso # (Auto) WBC Differential Differential Comment Sodium Potassium Chloride Carbon Dioxide Anion Gap BUN Creatinine Estimated GFR POC Glucose 122 H Random Glucose Calcium Total Creatine Kinase 35 29 Troponin I Less than 0.02 L Less than 0.02 L Triglycerides Cholesterol LDL Cholesterol, Calc HDL Cholesterol Cholesterol/HDL Ratio 10/10/18 10/10/18 10/10/18 04:25 07:26 07:30 CBC w Diff Auto diff final WBC 7.4 RBC 4.16 Hgb 12.9 Hct 37.4 MCV 89.9 MCH 31.1 MCHC 34.6 RDW 13.2 Plt Count 309 MPV 8.3 Neut % (Auto) 53.4 Lymph % (Auto) 31.0 [place] % (Auto) 10.0 H Eos % (Auto) 5.1 H Baso % (Auto) 0.5 Neut # (Auto) 4.0 Lymph # (Auto) 2.3 [place] # (Auto) 0.7 Eos # (Auto) 0.4 Baso # (Auto) 0.0 WBC Differential . Differential Comment . Sodium 140 Potassium 3.7 Chloride 108 H Carbon Dioxide 25.2 Anion Gap 7 BUN 9 Creatinine 0.67 Estimated GFR 84 L POC Glucose 100 Random Glucose 103 Calcium 8.7 Total Creatine Kinase Troponin I Triglycerides 99 Cholesterol 129 LDL Cholesterol, Calc 38 HDL Cholesterol 70.8 H Cholesterol/HDL Ratio 1.82 - Imaging Impressions Carotid Doppler Study 10/09/18 00:00 CONCLUSION: Mild to moderate plaque seen bilaterally. There is mildly elevated peak systolic velocity in the proximal left internal carotid artery. A significant stenosis may be present. The carotid system could be further evaluated with a CTA or MRA. Head MRI 10/09/18 00:00 CONCLUSION: 1. Age-related atrophy. 2. Increased signal throughout the cerebral white matter likely from small vessel ischemic change. 3. Old lacunar infarcts. 4. No definite acute intracranial abnormality is seen. 5. Right maxillary sinuses disease. Head MRA 10/09/18 00:00 CONCLUSION: 1. Moderate atherosclerotic intracranial vascular disease, negative for major branch vessel occlusion. Lumbar Spine MRI 10/09/18 00:00 CONCLUSION: 1. Interval fusion at L4-5 with improvement in stenosis and spondylolisthesis as above. Remainder of exam fairly stable compared with 2017. 2. Postcontrast images reveal some mild epidural enhancing fibrosis at L4-5 without significant thecal sac stenosis. Neck MRA 10/10/18 00:00 CONCLUSION: 1. No evidence of significant carotid stenosis. 2. Proximal left vertebral artery not well visualized on this study. Distal left vertebral artery terminates at PICA. Percent stenosis is calculated using the diameter of the stenotic region over the diameter of the normal distal internal carotid artery Assessment and Plan - Assessment (1) Abdominal pain Code(s): R10.9 - Unspecified abdominal pain Status: Acute (2) HTN (hypertension) Code(s): I10 - Essential (primary) hypertension Status: Acute (3) GERD (gastroesophageal reflux disease) Code(s): K21.9 - Gastro-esophageal reflux disease without esophagitis Status: Acute - Plan This is asn 83-year-old male patient with: Abdominal pain, improved. Nausea and vomiting and constipation, improved -Abdominal/pelvis CT reviewed showing constipation with possible mild ileus or gastroenteritis. -Positive for BM overnight per patient report. -Continue on bowel regimen. -Antiemetics as needed. Right lower extremity weakness/hip pain suspect possible radiculopathy -MRI of lumbar spine reviewed and not showing any acute findings. -PT evaluation done and appreciate input and recommendations. -Will arrange [facility] PT on discharge. -Pain control as needed, has been controlled. -Patient states that her great grandchild jumped on her hip the other day and has left her with cramping, is improving and possibly related to pain. Hypertension, chronic -Continue on amlodipine. Monitor BP trends. Stable. Hyperlipidemia -Continue on Lipitor. GERD -Continue on Protonix Altered mental status, improved. -Continue on aspirin. -Head MRI/MRA reviewed, no acute findings. -Continue PT and OT efforts. -ST recommending mechanical soft diet with thin liquids. -ECHO showing grade 1 diastolic HF, adequate EF. DVT prophylaxis with Lovenox and ISHAAN hose. DC home. RX as written. PCP follow up. Activity as tolerated. Diet mechanical soft.
[2018-10-10 13:31] LABS: Hemoglobin A1c 5.5 % (4.3-6.0)
== END 2018-10-10 17:49 | disposition home health service (06) ==
LOC: PHED 21:53 → PHEDA 21:53 → PH3 10-09 02:15
PROVIDERS: ADMIT Hospitalist; ATTEND Hospitalist
DX: K59.00 Constipation, unspecified; I50.30 Unspecified diastolic (congestive) heart failure; M43.16 Spondylolisthesis, lumbar region; E78.5 Hyperlipidemia, unspecified; R11.2 Nausea with vomiting, unspecified; I11.0 Hypertensive heart disease with heart failure; M48.061 Spinal stenosis, lumbar region without neurogenic claudication; K21.9 Gastro-esophageal reflux disease without esophagitis; Z98.1 Arthrodesis status; Z79.82 Long term (current) use of aspirin; K57.90 Diverticulosis of intestine, part unspecified, without perforation or abscess without bleeding; R53.1 Weakness; Z79.899 Other long term (current) drug therapy; Z87.891 Personal history of nicotine dependence; M25.551 Pain in right hip